=== PATIENT | female | born 1955 | race Caucasian/White ===

== ENCOUNTER → 2019-12-17 08:59 | Outpatient (BNVA) | payer MEDICARE, MEDICAID, SELFPAY | PROVIDERS: Family Provider Registered Nurse; PCP Registered Nurse; Visit Provider Registered Nurse | DX: N30.00 Acute cystitis without hematuria (principal); R39.9 Unspecified symptoms and signs involving the genitourinary system; N39.0 Urinary tract infection, site not specified | CPT/HCPCS: 81003; 87077; 87086; 87186 ==

== ENCOUNTER → 2019-12-24 08:58 | Outpatient (BNVA) | payer MEDICARE, MEDICAID, SELFPAY | PROVIDERS: Family Provider Registered Nurse; PCP Registered Nurse; Referring Provider Registered Nurse; Visit Provider Specialist | DX: G47.10 Hypersomnia, unspecified (principal); R41.89 Other symptoms and signs involving cognitive functions and awareness; Z76.89 Persons encountering health services in other specified circumstances; R44.1 Visual hallucinations; R68.89 Other general symptoms and signs; F17.210 Nicotine dependence, cigarettes, uncomplicated | CPT/HCPCS: 96116; 99204 ==

== ENCOUNTER → 2019-12-30 13:18 | Outpatient (BNVA) | payer MEDICARE, MEDICAID, SELFPAY | PROVIDERS: Family Provider Registered Nurse; PCP Registered Nurse; Referring Provider Specialist; Visit Provider Otolaryngology | DX: M95.0 Acquired deformity of nose (principal); J34.2 Deviated nasal septum; J34.3 Hypertrophy of nasal turbinates; G47.33 Obstructive sleep apnea (adult) (pediatric); F17.210 Nicotine dependence, cigarettes, uncomplicated | CPT/HCPCS: 99203; 99214 ==

== ENCOUNTER 2020-01-01 15:29 | Outpatient (CLI) | payer MEDICARE, MEDICAID, SELFPAY ==
--- NOTE | 2020-01-01 15:30 | CT_ITS ---
WS: [id number] CT SINUSES TECHNIQUE: Noncontrast CT of the paranasal sinuses with coronal and sagittal reformatted images. CLINICAL INFORMATION: DEFORMITY OF NOSE COMPARISON: CT facial bones May 13, 2018 DLP: 514.[address] scans at [facility] use at least one of these dose optimization techniques: automat ed exposure control; mA and/or kV adjustment per patient size (includes targeted exams where dose is matched to clinical indication); or iterative reconstruction. FINDINGS: Comparison made to prior CT facial bones May 13, 2018. Previously demonstrated anterior nasal bone f racture. No significant nasal bone depression or angulation. Right anterior nasal bone fracture line is less apparent today. Maxilla is normal in appearance. Minimal left to right nasal septal deviation measuring 1 to 2 mm. Suspected prior septoplasty with turbinate reductions. Hypoplastic frontal sinuses which are well aerated. Trace mucosal thickening in the ethmoid air cells . Sphenoid sinuses are well aerated. Mild mucosal thickening along the sphenoid sinus ostia. Mastoid air cells are well aerated. Retention cyst right inferior maxillary sinus measuring 10 mm is unchange d. Maxillary sinuses are well aerated. Ostiomeatal units are patent.Normal lamina papyracea. Normal parapharyngeal fat. Posterior nasopharyn x is normal. Normal pterygoid plates. Partially visualized intracranial contents unremarkable. Intrac ranial vascular calcification. CT/CT sinus wo con* [id number] IMPRESSION: 1. Evidence of prior suspected septoplasty with turbinate reductions. 2. Ostiomeatal units are patent bilaterally. 10 mm retention cyst right inferi or maxillary sinus is unchanged. Maxillary sinuses are otherwise well aerated. 3. Hypoplastic frontal sinuses which are well aerated. Trace mucosal thickenin g in the ethmoid air cells. Sphenoid sinuses are well aerated. 4. Normal mastoid air cells. 5. Previously described anterior nasal bone fracture with a right nasal bone f racture line less visible today. No significant nasal bone depression.
== END 2020-01-01 15:30 | disposition home or self-care (01) ==
LOC: CT 15:32
PROVIDERS: Family Provider Registered Nurse; PCP Registered Nurse; Visit Provider Otolaryngology
DX: M95.0 Acquired deformity of nose (principal)
CPT/HCPCS: 70486

== ENCOUNTER 2020-01-13 20:00 | Outpatient (CLI) | payer MEDICARE, MEDICAID, SELFPAY | END 2020-01-13 20:01 | disposition home or self-care (01) | LOC: SLEEP 01-14 09:12 | PROVIDERS: Family Provider Registered Nurse; PCP Registered Nurse; Visit Provider Specialist | DX: G47.33 Obstructive sleep apnea (adult) (pediatric) (principal) | CPT/HCPCS: 95810 ==

== ENCOUNTER → 2020-01-16 13:19 | Outpatient (BNVA) | payer MEDICARE, MEDICAID, SELFPAY | PROVIDERS: Family Provider Registered Nurse; PCP Registered Nurse; Visit Provider Otolaryngology | DX: M95.0 Acquired deformity of nose (principal); J34.2 Deviated nasal septum; J34.3 Hypertrophy of nasal turbinates; G47.33 Obstructive sleep apnea (adult) (pediatric); F17.210 Nicotine dependence, cigarettes, uncomplicated | CPT/HCPCS: 99214 ==

== ENCOUNTER → 2020-01-30 12:27 | Outpatient (BNVA) | payer MEDICARE, MEDICAID, SELFPAY | PROVIDERS: Family Provider Registered Nurse; PCP Registered Nurse; Visit Provider Nurse Practitioner Psychiatric/Mental Health | DX: F43.12 Post-traumatic stress disorder, chronic (principal); F33.41 Major depressive disorder, recurrent, in partial remission; F17.210 Nicotine dependence, cigarettes, uncomplicated; F33.1 Major depressive disorder, recurrent, moderate | CPT/HCPCS: 99214 ==

== ENCOUNTER → 2020-03-12 08:14 | Outpatient (BNVA) | payer MEDICARE, MEDICAID, SELFPAY | PROVIDERS: Family Provider Registered Nurse; PCP Registered Nurse; Visit Provider Nurse Practitioner Psychiatric/Mental Health | DX: F43.12 Post-traumatic stress disorder, chronic (principal); F33.41 Major depressive disorder, recurrent, in partial remission; F17.210 Nicotine dependence, cigarettes, uncomplicated | CPT/HCPCS: 99213 ==

== ENCOUNTER → 2020-03-16 10:38 | Outpatient (BNVA) | payer MEDICARE, MEDICAID, SELFPAY | PROVIDERS: Family Provider Registered Nurse; PCP Registered Nurse; Visit Provider Registered Nurse | DX: I10 Essential (primary) hypertension (principal); E11.65 Type 2 diabetes mellitus with hyperglycemia; E78.5 Hyperlipidemia, unspecified; N39.0 Urinary tract infection, site not specified; J34.3 Hypertrophy of nasal turbinates | CPT/HCPCS: 80053; 80061; 81000; 83036; 85025; 87077; 87086; 87186 ==

== ENCOUNTER → 2020-03-31 14:24 | Outpatient (BNVA) | payer MEDICARE, MEDICAID, SELFPAY | PROVIDERS: Family Provider Registered Nurse; PCP Registered Nurse; Visit Provider Specialist | DX: G47.33 Obstructive sleep apnea (adult) (pediatric) (principal); F17.210 Nicotine dependence, cigarettes, uncomplicated | CPT/HCPCS: 99214 ==

== ENCOUNTER → 2020-06-04 08:20 | Outpatient (BNVA) | payer MEDICARE, MEDICAID, SELFPAY | PROVIDERS: Family Provider Registered Nurse; PCP Registered Nurse; Visit Provider Nurse Practitioner Psychiatric/Mental Health | DX: F43.12 Post-traumatic stress disorder, chronic (principal); F33.41 Major depressive disorder, recurrent, in partial remission; F17.210 Nicotine dependence, cigarettes, uncomplicated | CPT/HCPCS: 99213 ==

== ENCOUNTER → 2020-07-07 15:45 | Outpatient (BNVA) | payer MEDICARE, MEDICAID, SELFPAY | PROVIDERS: Family Provider Registered Nurse; PCP Registered Nurse; Visit Provider Registered Nurse | DX: S50.819A Abrasion of unspecified forearm, initial encounter (principal); E11.9 Type 2 diabetes mellitus without complications; Z79.4 Long term (current) use of insulin; X58.XXXA Exposure to other specified factors, initial encounter | CPT/HCPCS: 83036; 85025 ==

== ENCOUNTER → 2020-07-30 09:35 | Outpatient (BNVA) | payer MEDICARE, MEDICAID, SELFPAY | PROVIDERS: Family Provider Registered Nurse; PCP Registered Nurse; Visit Provider Registered Nurse | DX: R53.83 Other fatigue (principal) | CPT/HCPCS: 85025 ==

== ENCOUNTER → 2020-08-27 08:26 | Outpatient (BNVA) | payer MEDICARE, MEDICAID, SELFPAY | PROVIDERS: Family Provider Registered Nurse; PCP Registered Nurse; Visit Provider Nurse Practitioner Psychiatric/Mental Health | DX: F43.12 Post-traumatic stress disorder, chronic (principal); F33.41 Major depressive disorder, recurrent, in partial remission; F17.210 Nicotine dependence, cigarettes, uncomplicated | CPT/HCPCS: 99214 ==

== ENCOUNTER 2020-09-17 19:26 | Emergency (ER) | payer MEDICARE, MEDICAID, SELFPAY ==
[2020-09-17 19:27] VITALS: BP 126/68; PULSE 78; RESP 16; TEMP 36.7; O2SAT 92; BMI 27.6
--- NOTE | 2020-09-17 19:32 | ED_ITS ---
HPI - Abdominal Pain General: Chief Complaint: General Medical Stated Complaint: GEN PAIN Time Seen by Provider: 09/17/20 19:27 Source: patient and EMS Mode of arrival: EMS Limitations: no limitations History of Present Illness: HPI narrative: 64-year-old female who is a history of chronic pain and has been trying to wean off her pain meds. She states that since doing that she has had pain all over along with some nausea and vomiting and feels like she is dehydrated. Patient states she feels like she may be withdrawing. Patient's vital signs here are all normal. She denies any worsening or improving factors. Denies any fevers. Associated Symptoms: Reports nausea and vomiting; Denies chills, dysuria and fever(s) Review of Systems Const: Denies: fever(s), chills, body aches or change in appetite Eyes: Denies: blurry vision or eye discomfort ENMT: Denies: throat pain or dental pain Card: Denies: chest pain Resp: Denies: dyspnea GI: Reports: nausea and vomiting : Denies: dysuria Musc: Reports: back pain and joint pain Skin/Breast: Denies: rash Neuro: Denies: headache(s) Psych: Denies: depression Oleg/Lymph: Denies: easy bruising All/Imm: Denies: urticaria PFSH ED PFSH: Medical History Chronic GERD Chronic post-traumatic stress disorder Deviated septum Major depressive disorder, recurrent, in partial remission Nasal turbinate hypertrophy Obstructive sleep apnea Type 2 diabetes mellitus Surgical History History of nasal surgery Family History Other CAD (coronary artery disease) Cancer Depression Diabetes Hypertension Stroke Social History Smoking and tobacco status: current every day smoker cigarettes Packs smoked per day: 2 Quit status (tobacco): considering quitting Second hand smoke exposure: No Smoking risk assessment/counseling performed?: No Alcohol intake: never Desire information about alcohol rehabilitation?: No Counseling given: No Desire information about substance/drug rehabilitation?: No Counseling given: No Lives independently: Yes Household members: none Marital status: / Current occupational status: retired History of recent travel: No Current gender identity: Female Physical Exam Const: COMMON NORMALS: no acute distress, patient oriented x3 and healthy alysha earing HENMT: COMMON NORMALS: normocephalic and atraumatic HEAD & SCALP: normocephalic and atraumatic Eye: COMMON NORMALS: Equal, round and reactive pupils present and EOMs intact bilaterally PUPIL: Yes Equal, round and reactive pupils present Neck/C-Spine: COMMON NORMALS: full ROM and supple Chest: COMMONS NORMALS: normal inspection of the chest and normal palpation of entire chest wall Resp: COMMON NORMALS: normal respiratory effort, No retractions, No use of accessory muscles and clear to auscultation bilaterally AUSCULTATION: clear to auscultation bilaterally Cardio: COMMON NORMALS: regular rate, regular rhythm and No murmurs present (Cardio) RATE: regular rate RHYTHM: regular rhythm GI: COMMON NORMALS: Normal to inspection, nondistended, normoactive bowel sounds present, Soft to palpation, non-tender and no masses PALPATION: Yes Soft to palpation Extremity: COMMON NORMALS: normal to inspection and full ROM Neuro: COMMON NORMALS: patient oriented x3, moves all extremities and no focal motor deficits Psych: COMMON NORMALS: mental status grossly normal, Normal thought process present and cooperative THOUGHT PROCESS: Normal thought process present Skin: COMMON NORMALS: no rashes or lesions noted and no wounds GENERAL SKIN EXAM: no rashes or lesions noted Course Vital Signs: Vital signs: Vital Signs Temperature 98.0 F 09/17/20 19:27 Pulse Rate 78 09/17/20 19:27 Respiratory Rate 16 09/17/20 19:27 Blood Pressure 126/68 09/17/20 19:27 Pulse Oximetry 92 09/17/20 19:27 MDM - Abdominal Pain MDM Narrative: Medical decision making narrative: 64-year-old female presents here with chronic pain. She is well-appearing here has no signs of any withdrawal. Patient's blood work and vitals here been normal. She is stable for discharge. Lab Data: Labs: Lab Results 09/17/20 09/17/20 Range/Units 20:39 20:39 WBC 10.1 H (4.0-10.0) 10^3/ uL RBC 4.01 L (4.1-5.3) 10^6/u L Hgb 12.3 (11.5-15.3) g/dL Hct 37.8 (37.0-47.0) % MCV 94.3 (81-99) fL MCH 30.7 (28.0-34.0) pg MCHC 32.5 (30.0-36.0) g/dL RDW 12.1 (12.1-15.1) % Plt Count 200 (130-400) 10^3/c mm MPV 10.3 (7.4-10.4) fL Neut % (Auto) 58.6 % Lymph % (Auto) 27.4 % [place] % (Auto) 8.6 % Eos % (Auto) 4.2 % Baso % (Auto) 0.8 % Neut # (Auto) 5.92 (1.8-7.7) 10^3/u L Lymph # (Auto) 2.8 (0.8-4.8) 10^3/u L [place] # (Auto) 0.9 (0.2-0.9) 10^3/u L Eos # (Auto) 0.4 (0.0-0.8) 10^3/u L Baso # (Auto) 0.1 (0.0-0.1) 10^3/u L Nucleated RBC % (a uto) 0 % Nucleated RBCs # 0.0 /100WBC Sodium 143 (136-145) mmol/L Potassium 3.8 (3.5-5.1) mmol/L Chloride 106 (98-107) mmol/L Carbon Dioxide 29 (22-29) mmol/L Anion Gap 11.8 (5-19) BUN 15 (8-23) mg/dL Creatinine 0.9 (0.5-0.9) mg/dL GFR Calculation 62.6 L (90-130) mL/min Glucose 97 (65-115) mg/dL Calculated Osmolal ity 297 H (285-295) mOsm/k g Calcium 8.9 (8.5-10.5) mg/dL Total Bilirubin 0.2 (0.15-1.2) mg/dL AST 14 (0-32) U/L ALT 14 (0-33) U/L Alkaline Phosphata se 82 (35-105) IU/L Total Protein 6.1 L (6.6-8.7) g/dL Albumin 3.9 (3.5-5.2) g/dL Globulin 2.2 (1.3-4.6) g/dL Lipase 23 (13-60) U/L Discharge Plan Discharge Patient Disposition: Home Clinical Impression: Chronic pain Qualifiers: Chronic pain type: other chronic pain Qualified Code(s): G89.29 - Other chronic pain Condition: Stable Prescriptions: No Action baclofen 10 mg tablet 10 mg PO DAILY RF: 0 polyethylene glycol 3350 [Miralax] 17 gram/dose powder 17 gm PO DAILY RF: 0 lorazepam [Ativan] 0.5 mg tablet 0.25 mg PO DAILY PRN (Reason: anxiety) Qty: 15 RF: 0 duloxetine 60 mg capsule,delayed release(DR/EC) 60 mg PO .morning Qty: 90 RF: 2 duloxetine [Cymbalta] 30 mg capsule,delayed release(DR/EC) 30 mg PO .morning Qty: 90 RF: 2 (DME) oxygen-air delivery systems Device See Rx Instructions .ROUTE .MEDSUPPLY Qty: 1 RF: 0 valsartan 40 mg tablet See Rx Instructions .ROUTE BID Qty: 180 RF: 0 Januvia 100 mg tablet See Rx Instructions .ROUTE .COMPLEX Qty: 90 RF: 0 metoprolol tartrate 100 mg tablet See Rx Instructions .ROUTE .COMPLEX Qty: 180 RF: 0 amlodipine 10 mg tablet See Rx Instructions .ROUTE .COMPLEX Qty: 90 RF: 0 atorvastatin 20 mg tablet See Rx Instructions .ROUTE .COMPLEX Qty: 90 RF: 0 famotidine 40 mg tablet See Rx Instructions .ROUTE .COMPLEX Qty: 90 RF: 0 blood sugar diagnostic [OneTouch Ultra Blue Test Strip] Strip See Rx Instructions .ROUTE .COMPLEX Qty: 100 RF: 0 dulaglutide [Trulicity] 0.75 mg/0.5 mL pen injector See Rx Instructions .ROUTE .COMPLEX Qty: 2 RF: 0 [place] 7.5-325 mg Tablet 1 tab PO Q6H PRN (Reason: Pain) RF: 0 Discharge Orders: Discharge Order (Routine); Ordered 09/17/20 Ordered By: Dev Dunne Referrals: Francois Pizarro, CLAIMS REPRESENTATIVE [Primary Care Provider] - 1-3 days Discharge Diet: Advance as tolerated Discharge Activity: Resume usual activity Patient Instructions: Chronic Pain (ED) Coding Level of Care Code ED [employer] Recapping 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
[2020-09-17 20:55] LABS: Basophils # 0.1 10^3/uL (0.0-0.1); Basophils % 0.8 %; Eosinophils # 0.4 10^3/uL (0.0-0.8); Eosinophils % 4.2 %; Hematocrit 37.8 % (37.0-47.0); Hemoglobin 12.3 g/dL (11.5-15.3); Lymphocytes # 2.8 10^3/uL (0.8-4.8); Lymphocytes % 27.4 %; Mean Corpuscular HGB Conc 32.5 g/dL (30.0-36.0); Mean Corpuscular Hemoglobin 30.7 pg (28.0-34.0); Mean Corpuscular Volume 94.3 fL (81-99); Mean Platelet Volume 10.3 fL (7.4-10.4); Monocytes # 0.9 10^3/uL (0.2-0.9); Monocytes % 8.6 %; Neutrophils # 5.92 10^3/uL (1.8-7.7); Neutrophils % 58.6 %; Nucleated Red Blood Cells % 0 %; Platelet Count 200 10^3/cmm (130-400); Red Blood Count 4.01 10^6/uL (4.1-5.3); Red Cell Distribution Width 12.1 % (12.1-15.1); White Blood Count 10.1 10^3/uL (4.0-10.0)
[2020-09-17 21:15] LABS: Alanine Aminotransferase 14 U/L (0-33); Albumin Level 3.9 g/dL (3.5-5.2); Alkaline Phosphatase 82 IU/L (35-105); Anion Gap 11.8 (5-19); Aspartate Amino Transferase 14 U/L (0-32); Blood Urea Nitrogen 15 mg/dL (8-23); Calcium 8.9 mg/dL (8.5-10.5); Carbon Dioxide 29 mmol/L (22-29); Chloride 106 mmol/L (98-107); Globulin 2.2 g/dL (1.3-4.6); Glomerular Filtration Rate 62.6 mL/min (90-130); Glucose 97 mg/dL (65-115); Lipase 23 U/L (13-60); Osmolality Calculated 297 mOsm/kg (285-295); Potassium 3.8 mmol/L (3.5-5.1); Sodium 143 mmol/L (136-145); Total Bilirubin 0.2 mg/dL (0.15-1.2); Total Protein 6.1 g/dL (6.6-8.7)
[2020-09-17] MEDS: sodium chloride 0.9% 1,000 ML 999 ML IV (22:37)
[2020-09-17] MEDS: LORazepam 2 mg/mL INJ 1 mL 0.5 MG IVP ×2 (22:43→22:44)
[2020-09-17] MEDS: ondansetron 2 mg/ML SDV 2 mL 4 MG IVP ×2 (22:43)
[2020-09-18 00:11] VITALS: BP 128/74; PULSE 82; RESP 18; O2SAT 96
== END 2020-09-17 23:53 | disposition home or self-care (01) ==
PROVIDERS: Emergency Provider Emergency Medicine; PCP Registered Nurse
DX: G89.29 Other chronic pain (principal); E11.9 Type 2 diabetes mellitus without complications; F17.210 Nicotine dependence, cigarettes, uncomplicated
CPT/HCPCS: 12345; 80053; 83690; 85025; 96361; 96374; 96375; 99283; J2060; J2405; J7030

== ENCOUNTER → 2020-09-24 08:20 | Outpatient (BNVA) | payer MEDICARE, MEDICAID, SELFPAY | PROVIDERS: PCP Registered Nurse; Visit Provider Nurse Practitioner Psychiatric/Mental Health | DX: F43.12 Post-traumatic stress disorder, chronic (principal); F33.41 Major depressive disorder, recurrent, in partial remission; F17.210 Nicotine dependence, cigarettes, uncomplicated | CPT/HCPCS: 99214 ==

== ENCOUNTER → 2020-10-22 08:12 | Outpatient (BNVA) | payer MEDICARE, MEDICAID, SELFPAY | PROVIDERS: PCP Registered Nurse; Visit Provider Nurse Practitioner Psychiatric/Mental Health | DX: F33.41 Major depressive disorder, recurrent, in partial remission (principal); F43.12 Post-traumatic stress disorder, chronic; F17.210 Nicotine dependence, cigarettes, uncomplicated | CPT/HCPCS: 99214 ==

== ENCOUNTER → 2020-11-24 07:42 | Outpatient (BNVA) | payer MEDICARE, MEDICAID, SELFPAY | PROVIDERS: PCP Registered Nurse; Visit Provider Nurse Practitioner Psychiatric/Mental Health | DX: F33.41 Major depressive disorder, recurrent, in partial remission (principal); F43.12 Post-traumatic stress disorder, chronic; F17.210 Nicotine dependence, cigarettes, uncomplicated | CPT/HCPCS: 99213 ==

== ENCOUNTER → 2021-02-16 08:18 | Outpatient (BNVA) | payer MEDICARE, MEDICAID, SELFPAY | PROVIDERS: PCP Registered Nurse; Visit Provider Nurse Practitioner Psychiatric/Mental Health | DX: F33.41 Major depressive disorder, recurrent, in partial remission (principal); F43.12 Post-traumatic stress disorder, chronic; F17.210 Nicotine dependence, cigarettes, uncomplicated | CPT/HCPCS: 99214 ==

== ENCOUNTER → 2021-02-18 13:26 | Outpatient (BNVA) | payer MEDICARE, MEDICAID, SELFPAY | PROVIDERS: PCP Registered Nurse; Visit Provider Registered Nurse | DX: E11.9 Type 2 diabetes mellitus without complications (principal); G47.10 Hypersomnia, unspecified; I10 Essential (primary) hypertension; I73.9 Peripheral vascular disease, unspecified; A49.9 Bacterial infection, unspecified; N39.0 Urinary tract infection, site not specified; Z79.4 Long term (current) use of insulin | CPT/HCPCS: 80053; 80061; 81000; 83036; 85025; 87077; 87086; 87184 ==

== ENCOUNTER → 2021-03-01 11:23 | Outpatient (BNVA) | payer MEDICARE, MEDICAID, SELFPAY | PROVIDERS: PCP Registered Nurse; Visit Provider Registered Nurse | DX: N39.0 Urinary tract infection, site not specified (principal); A49.9 Bacterial infection, unspecified | CPT/HCPCS: 81000; 87077; 87086; 87184 ==

== ENCOUNTER → 2021-03-11 14:35 | Outpatient (BNVA) | payer MEDICARE, MEDICAID, SELFPAY | PROVIDERS: PCP Registered Nurse; Visit Provider Registered Nurse | DX: A49.9 Bacterial infection, unspecified (principal); N39.0 Urinary tract infection, site not specified | CPT/HCPCS: 81000 ==

== ENCOUNTER → 2021-03-26 09:28 | Outpatient (BNVA) | payer MEDICARE, MEDICAID, SELFPAY | PROVIDERS: PCP Registered Nurse; Visit Provider Nurse Practitioner Psychiatric/Mental Health | DX: F33.41 Major depressive disorder, recurrent, in partial remission (principal); F43.12 Post-traumatic stress disorder, chronic; F17.210 Nicotine dependence, cigarettes, uncomplicated | CPT/HCPCS: 99214 ==

== ENCOUNTER → 2021-05-07 07:38 | Outpatient (BNVA) | payer MEDICARE, MEDICAID, SELFPAY | PROVIDERS: PCP Registered Nurse; Visit Provider Nurse Practitioner Psychiatric/Mental Health | DX: F33.41 Major depressive disorder, recurrent, in partial remission (principal); F43.12 Post-traumatic stress disorder, chronic; F17.210 Nicotine dependence, cigarettes, uncomplicated | CPT/HCPCS: 99214 ==

== ENCOUNTER → 2021-06-14 07:11 | Outpatient (BNVA) | payer MEDICARE, MEDICAID, SELFPAY | PROVIDERS: PCP Registered Nurse; Visit Provider Nurse Practitioner Psychiatric/Mental Health | DX: F33.41 Major depressive disorder, recurrent, in partial remission (principal); F43.12 Post-traumatic stress disorder, chronic; F17.210 Nicotine dependence, cigarettes, uncomplicated | CPT/HCPCS: 99214 ==

== ENCOUNTER → 2021-08-09 07:27 | Outpatient (BNVA) | payer MEDICARE, MEDICAID, SELFPAY | PROVIDERS: PCP Registered Nurse; Visit Provider Nurse Practitioner Psychiatric/Mental Health | DX: F33.41 Major depressive disorder, recurrent, in partial remission (principal); F43.12 Post-traumatic stress disorder, chronic; F17.210 Nicotine dependence, cigarettes, uncomplicated | CPT/HCPCS: 99214 ==

== ENCOUNTER → 2021-09-07 11:29 | Outpatient (BNVA) | payer MEDICARE, MEDICAID, SELFPAY | PROVIDERS: PCP Registered Nurse; Visit Provider Registered Nurse | DX: J44.9 Chronic obstructive pulmonary disease, unspecified (principal); Z23 Encounter for immunization; E11.9 Type 2 diabetes mellitus without complications; Z79.4 Long term (current) use of insulin; I10 Essential (primary) hypertension; E55.9 Vitamin D deficiency, unspecified | CPT/HCPCS: 80053; 81000; 82306; 83036; 85025 ==

== ENCOUNTER → 2021-11-01 07:55 | Outpatient (BNVA) | payer MEDICARE, MEDICAID, SELFPAY | PROVIDERS: PCP Registered Nurse; Visit Provider Nurse Practitioner Psychiatric/Mental Health | DX: F33.41 Major depressive disorder, recurrent, in partial remission (principal); F43.12 Post-traumatic stress disorder, chronic; F17.210 Nicotine dependence, cigarettes, uncomplicated; M62.830 Muscle spasm of back | CPT/HCPCS: 99214 ==

== ENCOUNTER 2021-12-06 14:06 | Outpatient (CLI) | payer MEDICARE, MEDICAID, SELFPAY ==
--- NOTE | 2021-12-06 14:15 | USCV_ITS ---
Samanta Null Age: 66 Gender: F : 1955 Exam Date: 12/06/2021 14:53 Ordering Phys: Francois PizarroP LIQUID SUGAR MELTER Technologist: GUIDO Exam Location: [facility] [place] Indication: PVD Risk Factors: Previous Vascular Surgery: RIGHT LEFT BP: 140.0 / 82.00 BP: 172.0/ 79.00 0 0 Waveform Velocity (cm/s) Velocity (cm/s) Waveform Monophasic 152.7 Iliac Prox 123.6 Biphasic Monophasic 323.4 Iliac Mid 140.7 Triphasic Monophasic 140.7 Iliac Distal 132.8 Triphasic Monophasic 206.4 ENDBANDER 160.4 Biphasic Monophasic 159.8 SFA Prox 47.5 Monophasic Monophasic 42.1 SFA Mid 37.4 Monophasic Monophasic SFA Dist Monophasic 64.4 57.7 Monophasic 28.3 POP 29.4 Monophasic Monophasic 39.5 [employer] 29.4 Monophasic Monophasic 24.3 DPA 18.6 Monophasic FINDINGS NONCOMPRESSIBLE UNABLE TO OBTAIN ABIS Heavy heterogeneous plaques at the right mid iliac artery with elevated Doppler velocity and color flow turbulence. Moderate to heavy diffuse plaques in the common femoral and femoral artery on the right side Moderate heterogeneous diffuse plaques in the iliac, femoral and popliteal arteries on the left side Patent infrapopliteal vessels bilaterally CONCLUSIONS Heavy heterogeneous plaques at the right mid iliac artery with Doppler characteristics suggesting greater than 60% stenosis. Moderate to heavy diffuse plaques in the common femoral and femoral artery on the right side. Moderate heterogeneous diffuse plaques in the iliac, femoral and popliteal artery on the left side. ABIs could not be obtained due to noncompressibility Dr Karena Dupree MD [facility] (Electronically Signed) Final Date: 10 December 2021 09:03 S
--- NOTE | 2021-12-06 15:00 | USCV_ITS ---
Samanta Null Age: 66 Gender: F : 1955 Exam Date: 12/06/2021 14:25 Ordering Phys: Francois Pizarro CENTER DIRECTOR Technologist: GUIDO [place] [facility] [place]: SYNCOPE AND COLLAPSE Risk Factors: Previous Vascular Surgery: Right Brachial BP: / Left Brachial BP: / Right Left Velocity (cm/s) Spectral Plaque Velocity (cm/s) Spectral Plaque Syst/Diast Broadening Syst/Diast Broadening 69.00/ 8.90 Prox CCA 103.80/ 23.10 55.20/ 8.50 Mid CCA 91.30 / 23.10 85.20/ 15.60 Distal CCA 71.30 / 23.40 109.55/39.40 Prox ICA 54.40 / 23.30 120.25/35.20 Mid ICA 86.70 / 26.00 89.40/ 19.00 Distal ICA 71.70 / 20.80 112.50 ECA 118.10 2.19 ICA/CCA 0.95 Antegrade Vertebral Antegrade 64.70/ 12.40 cm/s 68.10/ 18.80 cm/s Bi Subclavian Bi 127.8 140.1 0 0 FINDINGS Moderate heterogeneous plaques of the right bifurcation and proximal no carotid artery. Mild to moderate plaques of the left bifurcation and internal carotid artery. Anterior flow in the vertebral arteries bilaterally. Normal Doppler flow velocities in the external carotid and subclavian arteries CONCLUSIONS Moderate heterogeneous plaques of the right bifurcation and proximal no carotid artery, suggesting less than 50% gnosis. Mild to moderate plaques of the left bifurcation and internal carotid artery, suggesting less than 50% stenosis. Compared to the study from 04/17/2018, there may not be a significant change Dr Karena Dupree MD [facility] (Electronically Signed) Final Date: 10 December 2021 08:56 S
== END 2021-12-06 14:07 | disposition home or self-care (01) ==
LOC: RAD 14:12
PROVIDERS: PCP Registered Nurse; Visit Provider Registered Nurse
DX: R55 Syncope and collapse (principal); I65.23 Occlusion and stenosis of bilateral carotid arteries; I73.9 Peripheral vascular disease, unspecified; I70.8 Atherosclerosis of other arteries
CPT/HCPCS: 93880; 93925

== ENCOUNTER 2022-01-24 12:07 | Outpatient (CLI) | payer MEDICARE, MEDICAID, SELFPAY ==
--- NOTE | 2022-01-24 12:30 | CT_ITS ---
WS: [id number] CT angio abd aorta runoff [id number] REASON FOR EXAM: I77.1 - Stricture of artery TECHNIQUE: Coronal and sagittal 2-D and MIP reformations. IV CONTRAST ADMINISTERED: 95 mL of Omnipaque 350 TOTAL EXAM DLP: 936.[address] scans at [facility] use at least one of these dose optimization techniques: automat ed exposure control; mA and/or kV adjustment per patient size (includes targeted exams where dose is matched to clinical indication); or iterative reconstruction. FINDINGS: ABDOMEN: Diffuse severe calcified atheromatous change in the abdominal aorta without aneurysmal dilatation. Mo derate stenoses by calcified plaque in the celiac, superior mesenteric, and major and minor renal art eries. Stenoses are less than 50%. PELVIS: Severe diffuse calcified plaque involves the common iliac arteries with mild stenosis. Occlus ion of the left internal iliac artery at its origin. Calcified plaque produces moderate stenosis, approximately 50%, in the common femoral arteries. EXTREMITIES: Severe extensive calcified plaque producing multiple tandem stenoses and occlusion of the superficial femoral arteries and the proximal third of the thigh bilaterally. There is reconstitution of the left superficial femoral artery at the level of the adductor canal wit h patent popliteal artery without significant stenosis. The right superficial femoral artery is reconstituted below the level of the adductor canal with brambila nt popliteal artery without significant stenosis. There are 3 patent runoff vessels bilaterally to the level of the ankle were the peroneal and anterio r tibials become diminutive and the main flow to the foot is from the posterior tibial artery bilater ally. CT/CT angio abd aorta runof [id number] IMPRESSION: Severe diffuse calcified atheromatous disease involving the abdominal aorta and the arterial circulation of the lower extremities. Stenoses and occlusions as above.
[2022-01-24 12:41] LABS: Blood Urea Nitrogen 12 mg/dL (8-23)
[2022-01-24 12:41] LABS: Glomerular Filtration Rate 55.1 mL/min (90-130)
[2022-01-24] MEDS: iohexol 350 mg/mL 100 mL Btl IV (12:52)
== END 2022-01-24 12:08 | disposition home or self-care (01) ==
LOC: RAD 12:09
PROVIDERS: PCP Registered Nurse; Visit Provider Internal Medicine
DX: I77.1 Stricture of artery (principal); I70.203 Unspecified atherosclerosis of native arteries of extremities, bilateral legs; I10 Essential (primary) hypertension; I70.0 Atherosclerosis of aorta
CPT/HCPCS: 75635; 82565; 84520

== ENCOUNTER → 2022-02-03 07:40 | Outpatient (BNVA) | payer MEDICARE, MEDICAID, SELFPAY | PROVIDERS: PCP Registered Nurse; Visit Provider Nurse Practitioner Psychiatric/Mental Health | DX: F33.41 Major depressive disorder, recurrent, in partial remission (principal); F43.12 Post-traumatic stress disorder, chronic; F17.210 Nicotine dependence, cigarettes, uncomplicated; M62.830 Muscle spasm of back | CPT/HCPCS: 99214 ==

== ENCOUNTER → 2022-02-11 09:08 | Outpatient (BNVA) | payer MEDICARE, MEDICAID, SELFPAY | PROVIDERS: PCP Registered Nurse; Visit Provider Internal Medicine | DX: I73.9 Peripheral vascular disease, unspecified (principal); E11.9 Type 2 diabetes mellitus without complications; I10 Essential (primary) hypertension; Z01.812 Encounter for preprocedural laboratory examination; Z79.4 Long term (current) use of insulin | CPT/HCPCS: 80048; 85025; 85610; 87635 ==

== ENCOUNTER 2022-02-17 08:53 | Observation (INO) | payer MEDICARE, MEDICAID, SELFPAY ==
[2022-02-16 13:22] VITALS: BMI 31.6
[2022-02-17] VITALS (44 sets, daily range): BP systolic 107–162; BP diastolic 47–87; PULSE 54–88; RESP 13–25; TEMP 36.3–37; O2SAT 89–98; BMI 31.6
[2022-02-17] MEDS: diphenhydrAMINE 50 mg Capsule PO (06:30)
--- NOTE | 2022-02-17 07:00 | XACV_ITS ---
Ht: 163 cm Wt: 83 kg BSA: 1.97 m2 Any Known Allergies: Other Gender: Female : 1955 Exam Type: Invasive Peripheral Vascular Procedure(s): Procedure Description: Peripheral Cath Diagnostic Procedure Procedure Description: Abdominal aortic angiography Procedure Description: Lower extremities' angiography Procedure Description: Peripheral vascular Intervention Procedure Description: PV Balloon Procedure Description: PV Atherectomy Exam Priority: Routine Lower Extremity Diagnostic Findings Indication: 66-year-old female with past medical history of hypertension, diabetes, tobacco abuse, COPD, sleep apnea who has been having severe lifestyle limiting claudication. Right leg is worse. She underwent ultrasound that showed a significant right mid external iliac artery stenosis. CTA was performed that shows multiple level disease bilaterally including right iliac artery and bilateral SFAs. Patient is here for peripheral angiogram with possible intervention. Right lower extremity: Right common iliac artery: Patent. Right external iliac artery: Patent. Right common femoral artery: Has 60% stenosis. Right SFA: Critical ostial 99% stenosis. In the mid segment, the SFA is occluded. Distal SFA reconstitutes via collaterals. Right profunda: Patent. Right Popliteal artery: Patent. Right TP segment: Patent. Right AT: Patent. Right PT : Patent. Right peroneal artery: Patent. Left lower extremity: common iliac artery: Patent. Left external iliac artery: Patent. Left common femoral artery: Patent. Left SFA: Proximally occluded. Distal SFA reconstitutes via collaterals. Left profunda: Patent. Left Popliteal artery: Patent. Left TP segment: Patent. Below the knee arteries are not well visualized but grossly patent. Right Distal Common Femoral Artery: 70% stenosis. Right Proximal Superficial Femoral Artery: 70% stenosis, ostial. Right Mid-longitudinal Superficial Femoral Artery: 70% stenosis. Right Mid-longitudinal Popliteal Artery: 70% stenosis. Right Mid-longitudinal Tibioperoneal Trunk: 70% stenosis. Lower Extremity Interventional Findings PROCEDURE DETAIL: After obtaining abdominal angiogram right lower extremity selective images, we proceeded with intervention. Using Glidewire and seeker support catheter we crossed totally occluded SFA segment and wire was placed in posterior tibial artery. Through the seeker catheter we exchanged glide wire to viper wire. We performed orbital arthrectomy. This was followed by balloon angioplasty using 5.0 x 250mm balloon. We then performed balloon angioplasty with 6.0 x 100 mm balloon. At this time we performed angiogram that showed excellent flow in the SFA. In the TP segment there appeared to be small thrombus accumulation. We performed balloon angioplasty there as well using 4.0 balloon. At this time final angiogram was obtained which showed excellent flow and no significant flow. Ostial peroneal artery had haziness and slow flow but other vessels were noraml. Patient left the Spanner Operator in a stable condition. Right Distal Common Femoral Artery: 70% stenosis treated with AB Bowie 35 ASSISTANT TO THE PRESIDENT Catheter [id number]. Right Proximal Superficial Femoral Artery: 70% stenosis treated with AB ARMADA 35 OTW [id number]. Right Mid-longitudinal Superficial Femoral Artery: 70% stenosis treated with AB Bowie 35 ASSISTANT TO THE PRESIDENT Catheter [id number]. Right Mid-longitudinal Popliteal Artery: 70% stenosis treated with AB Bowie 35 ASSISTANT TO THE PRESIDENT Catheter [id number]. Right Mid-longitudinal Tibioperoneal Trunk: 70% stenosis treated with AB ARMADA 35 OTW [id number]. Conclusions Totally occluded right SFA s/p successful revascularization with orbital arthrectomy and balloon angioplasty. Severe peripheral artery disease of the left lower extremity. Plan for staged revasculuarization. There is severe right lower extremity disease. Right Distal Common Femoral Artery was treated with Balloon. Right Proximal Superficial Femoral Artery was treated with Balloon. Right Mid-longitudinal Superficial Femoral Artery was treated with Balloon. Right Mid-longitudinal Popliteal Artery was treated with Balloon. Right Mid-longitudinal Tibioperoneal Trunk was treated with Balloon. Recommendations Continue aspirin and plavix. Aggressive risk factor control. Patient will need staged revascularization of the left lower extremity. Outpatient follow up in 4 weeks. Hemodynamic Data Phase:Rest AO : 107.0 / 46.0 ( 72.0 ) @ 8:44:00 AM 125.0 / 55.0 ( 81.0 ) @ 9:05:00 AM 151.0 / 62.0 ( 98.0 ) @ 9:20:00 AM 118.0 / 48.0 ( 75.0 ) @ 9:34:00 AM Access Site Site: Left Femoral artery Sheath Size: 6 Fr Hemost... Method: Suture Hemost... Success: Successful Procedure Details Findings Procedure Consent Obtained. Admit Source: Out Patient. Pre-Procedure Time Out. Identified patient by full name and date of as verbalized by the patient/guarantor. Does the consent match the physician's order: Yes. Accurate & Complete Informed Consent: Yes. Inpatient/Outpatient History & Physical on Chart: Yes. If H&P is completed, is and addenduem needed: N/A; If yes, is the addendum complete: N/A. Visualize and Verify Site with Patient/Guarantor: N/A. Relevant Radiology Images available: Yes. Pre-op teaching completed and patient verbalized understanding. The risks, benefits, and alternatives of sedation and/or procedure were discussed by physician. The patient agrees to continue. Procedure started. Correct patient, site and procedure confirmed by cath team. Current diagnosis: PVD. PERRLA. Strong, equal hand material stress tester bilaterally. Lungs clear x 5 lobes. IV Site on Arrival: 20 gauge in the right wrist. IV Fluids: 0.9% NaCl at KVO. 0 mL infused prior to laboratory asst. Pre Procedural Pulses: bilateral dorsalis pedis was Doppled. Pre Procedural Pulses: bilateral posterior tibial was Doppled. Oxygen started at 2liters/min via nasal canula. right groin was prepped with chloroprep then draped in the usual sterile fashion. left groin was prepped with chloroprep then draped in the usual sterile fashion. Physician notified. Baseline sample Acquired. HR: 60 BPM. Physician arrived. Joanna CASE orienting ballistics expert forensic with Zoey Rose RN. Physician scrubbed in. Immediate Pre-Procedure Time Out. Correct Patient: Yes; Correct Procedure: Yes; Correct Site: Yes; Correct Patient Position: Yes; Correct Supplies: Yes; Dried Flammable Prep: Yes; Blood Products Available: N/A;. Lidocaine 1% infiltrated to the left groin. Arterial access obtained with micropuncture set. A 5FrFr UF catheter in over wire. Abdominal aortogram performed in TELLO @ 10 mL/sec for a total of 30 mL. 6Fr short sheath exchanged for 6Fr Flexor sheath 45 cm. Glidewire inserted. Catheter out. Sheath injected in Left common femoral artery and runoff performed of right leg. Seeker catheter inserted over the wire. Glidewire removed. Hand injection performed through the Seeker catheter with digital subtraction. Viperwire inserted and parked in the SFA. Seeker catheter removed. Orbital atherectomy decive inserted to the ostial SFA. Orbital atherectomy performed to ostial SFA. Orbital atherectomy device advanced and performed to mid SFA. Orbital atherectomy device removed. Results checked. Seeker catheter inserted over the Viper wire. Viperwire removed. Glidewire inserted. Balloon inserted over the wire to the common femoral. Inflation number : 1 A AB Bowie 35 ASSISTANT TO THE PRESIDENT Catheter [id number] was prepped and advanced across the Distal Common Femoral, Right , then inflated to 8 SARAHI for 1:30 seconds. Balloon advanced down the SFA. Inflation number: 1 The AB Bowie 35 ASSISTANT TO THE PRESIDENT Catheter [id number] was reinflated across the Mid Superficial Femoral, Right, to 8 SARAHI for 1:30 seconds. Balloon advanced to the popliteal. Inflation number: 1 The AB Bowie 35 ASSISTANT TO THE PRESIDENT Catheter [id number] was reinflated across the Mid Popliteal, Right, to 6 SARAHI for 1:00 seconds. Balloon out. Balloon inserted over the wire to the ostial superficial femoral. Inflation number : 1 A AB ARMADA 35 OTW [id number] was prepped and advanced across the Ostial Superficial Femoral, Right , then inflated to 6 SARAHI for 1:30 seconds. Balloon out over wire. Results checked. Glidewire parked in the posterior tibial. Balloon inserted to the tibial peroneal trunk. Inflation number : 1 A AB ARMADA 35 OTW [id number] was prepped and advanced across the Tibial Peroneal Trunk, Right , then inflated to 2 SARAHI for 1:00 seconds. Balloon out over wire. Right superficial femoral selected and arteriogram with runoff performed @ 10 mL/sec for a total of 20 mL. 6Fr Flexor sheath removed and exchanged for 6 Fr short sheath. Glidewire removed. Left common iliac selected and arteriogram with runoff performed @ 10 mL/sec for a total of 30 mL. A Suture was successful obtaining hemostatsis at the Left Femoral artery insertion site. Post Procedure: Pulses reassessed and unchanged. PERRLA. Strong, equal hand material stress tester bilaterally. No VTE prophylaxis required. Medication's Wasted: Nitro = 49.6 mg. Total IV fluids: 88 mL. Post-op diagnosis: PVD. Complications: none. Estimated blood loss: 5mL-10mL. Responsiveness - Normal response to verbal stimuli; alert and oriented, PERRLA. Airway - Unaffected, no intervention required; spontaneous ventilation. Circulation: W/N/L, pulses unchanged. Nausea/Vomiting: No. Procedure completed. Patient transferred by bed to 1st floor. Vital chart was stopped. Procedure Medications Start: 7:32 AM Stop: 7:32 AM Medication: 0.9% Saline Amount: 75 ml/hr Route: I.V. drip Start: 7:34 AM Stop: 7:34 AM Medication: Versed Amount: 1 mg Route: I.V. Start: 7:34 AM Stop: 7:34 AM Medication: Fentanyl Amount: 50 mcg Route: I.V. Start: 7:39 AM Stop: 7:39 AM Medication: Versed Amount: 1 mg Route: I.V. Start: 7:44 AM Stop: 7:44 AM Medication: Fentanyl Amount: 50 mcg Route: I.V. Start: 7:54 AM Stop: 7:54 AM Medication: Versed Amount: 1 mg Route: I.V. Start: 8:04 AM Stop: 8:04 AM Medication: Fentanyl Amount: 25 mcg Route: I.V. Start: 8:04 AM Stop: 8:04 AM Medication: Versed Amount: 1 mg Route: I.V. Start: 8:10 AM Stop: 8:10 AM Medication: Heparin Amount: 5000 units Route: I.V. Start: 8:13 AM Stop: 8:13 AM Medication: Fentanyl Amount: 50 mcg Route: I.V. Start: 8:24 AM Stop: 8:24 AM Medication: Nitrogylcerin Amount: 400 mcg Route: I.A. Start: 8:38 AM Stop: 8:38 AM Medication: Aggrastat 12.5 mg/250 mL Amount: 42 ml Route: I.V. bolus Start: 8:38 AM Stop: 8:38 AM Medication: Aggrastat 12.5 mg/250 mL Amount: 15.1 ml/hr Route: I.V. drip Start: 8:38 AM Stop: 8:38 AM Medication: Plavix Amount: 300 mg Route: P.O. I, the attending physician, have reviewed and verified all procedure medications. Yes, all medications given per verbal order History/Risk Factors Hypertension: Yes Dyslipidemia: No Peripheral Arterial Disease (PAD): Yes Obesity: Yes Renal Disease: No Tobacco Use: Current/Recent(w/in 1 year) Prior Interventions PCI: No CABG: No Valve Surgery: No Report Signatures Finalized by José Luis Sheridan MD on 02/28/2022 02:11 PM
--- NOTE | 2022-02-17 07:30 | W.PM.OPSFHP ---
Same Day Surgery H&P Indication for Procedure/HPI DATE OF PROCEDURE: February 17, 2022 CHIEF COMPLAINT/INDICATIONFOR SURGICAL PROCEDURE: Severe Lifestyle limiting claudication PREOP DIAGNOSIS: Severe Lifestyle limiting claudication PLANNED PROCEDURE: Operation Date: 02/17/22 07:00 Proposed Procedures p Peripheral Diagnostic(Bilateral) - José Luis Sheridan M.D Possible percutaneous intervention ?66-year-old female with past medical history of hypertension, diabetes, tobacco abuse, COPD, sleep apnea who has been having severe lifestyle limiting claudication. Right leg is worse. She underwent ultrasound that showed a significant right mid external iliac artery stenosis. CTA was performed that shows multiple level disease bilaterally including right iliac artery and bilateral SFAs. Patient is here for peripheral angiogram with possible intervention. ROS CONSTITUTIONAL: No fever chills weight loss or gain or night sweats. [] HEENT: Normocephalic, atraumatic.[] RESPIRATORY: Chronic shortness of breath CARDIOVASCULAR: No shortness of breath, chest pain, PND, orthopnea, lower extremity edema, presyncope or syncope. [] GI: no nausea vomiting diarrhea. [] SHIRT PRESSER: No numbness, tingling, weakness or loss of function in any part of the body. [] MUSCULOSKELETAL: No knee or joint pain or rashes. [] Medications/Allergies* Home Medications Medication Instructions Recorded Confirmed Type oxygen-air delivery systems #1 07/30/20 02/02/22 History nystatin 100,000 unit/gram topical 1 applic TOPICAL BID PRN g 12/29/21 02/16/22 History ointment polyethylene glycol 3350 17 17 g PO DAILY PRN gm 12/29/21 02/16/22 History gram/dose oral powder (Miralax) Allergies/Adverse Reactions Allergy/AdvReac Type Severity Reaction Status Date / Time Sulfa (Sulfonamide Allergy Mild VOMITING Verified 02/16/22 13:02 Antibiotics) Pertinent History/Comorbid Conditions* Medical History (Updated 01/02/22 @ 17:07 by José Luis Sheridan M.D) Chronic GERD Chronic post-traumatic stress disorder Deviated septum Major depressive disorder, recurrent, in partial remission Nasal turbinate hypertrophy Obstructive sleep apnea Psychiatric care Type 2 diabetes mellitus Vitamin B12 deficiency Surgical History (Updated 12/30/19 @ 13:50 by Tay Archuleta MD) History of nasal surgery Family History (Updated 12/24/19 @ 09:49 by Kathryn Echols LPN) Diabetes CAD (coronary artery disease) Depression Cancer Hypertension Stroke Social History Smoking and tobacco status: current every day smoker cigarettes Packs smoked per day: 2 Quit status (tobacco): considering quitting Second hand smoke exposure: No Smoking risk assessment/counseling performed?: No Alcohol intake: never Desire information about alcohol rehabilitation?: No Counseling given: No Desire information about substance/drug rehabilitation?: No Counseling given: No Lives independently: Yes Household members: none Marital status: / Current occupational status: retired History of recent travel: No Current gender identity: Female Pertinent Exam Findings alert, oriented x 3, clear to auscultation bilaterally and regular rate & rhythm Conscious Sedation Assessment PATIENT ASSESSED PRIOR TO SEDATION, WITH NO CHANGE NOTED: Yes AIRWAY EVAL/ANESTHESIA PLAN: normal airway, ASA III, Monitored Anesthesia, Local Anesthesia, Risks, benefits & alternatives of sedation and/or procedure discussed and Patient agrees to continue as planned Recommendations Surgery/Procedure today (Peripheral angiogram with possible percutaneous intervention) Coding Level of Care Code Acute Cloth Bleaching Supervisor for Mario Rodgers
--- NOTE | 2022-02-17 10:07 | PC.CHAP ---
Pastoral Care Encounter/Spiritual Assessment Type of Contact [x] Declined farm management agent visit [] Patient/Family/Request visit [] Outpatient visit [] Follow-up visit [] Physician referral [] Code/Alert [] Routine visit [] Staff referral [] Actively dying [] Patient sleeping [] Family support [] [] Out of room [] Palliative care [] [] Receiving care in room [] Pre-surgical visit [] Trauma [] Long length of stay [] ICU visit [] Other: Relational/Emotional Strength [] Patient feels connected with others/family/visitors/staff [] Distress [] Loneliness/isolation [] Abandonment Spirituality of Patient [] Person of Camelia [] Attends Pentecostalism of their Camelia [] Believes in Prayer [] Reads Bible or Quaker materials [] There are Spiritual issues to be addressed Partner Management Consultant Interventions [] Prayer [] Active listening [] Non-anxious presence [] Spiritual/emotional support [] Crisis/trauma care [] Spiritual counseling [] Bereavement support [] Provided bereavement packet [] Provided Bible/devotional materials [] Provided toy/stuffed animal, coloring book to patient or family member [] Provided Communion [] Anointing/[place] [] Salvation [] Completed spiritual assessment [] Other: Impact on Illness or Injury [] Angry [] Fearful [] Anxious [] Often cries [] Exhaustion [] Unable to work [] Unable to attend presybeterian [] Unable to walk/stand [] Unable to read [] Unable to drive [] Unable to eat/drink [] Unable to sleep [] Unable to be with family [] Patient intubated [] Other: Summary Declined farm management agent visit Time spent with patient 5 mins
[2022-02-17 12:44] LABS: Partial Thromboplastin Time 207.7 SECONDS (23.9-36.7)
[2022-02-17 16:16] LABS: Partial Thromboplastin Time 28.6 SECONDS (23.9-36.7)
[2022-02-17] MEDS: metoprolol tartrate 25 mg Tablet PO (18:22)
[2022-02-17] MEDS: sodium chloride 0.9% 1,000 ML 100 ML IV (18:26)
--- NOTE | 2022-02-17 19:21 | PC.NURSE ---
1831 Dr Sheridan at bedside for assessment instructions to order cbc Bmp and decrease fluids at 2000 form 100ml/hr to 50ml/hr
[2022-02-17] MEDS: atorvastatin 40 mg Tablet 20 MG PO (19:52)
[2022-02-17] MEDS: prazosin 1 mg Capsule PO (19:52)
[2022-02-17 20:23] LABS: Glucose Point of Care 128 mg/dL (70-110)
[2022-02-18 02:51] VITALS: PULSE 72
--- NOTE | 2022-02-18 03:37 | PC.NURSE ---
Patient ambulated with nurse at 2300. Left groin, distal, and vital signs WNL.
[2022-02-18 03:38] LABS: Hematocrit 39.7 % (37.0-47.0); Hemoglobin 12.2 g/dL (11.5-15.3); Mean Corpuscular HGB Conc 30.7 g/dL (30.0-36.0); Mean Corpuscular Hemoglobin 28.5 pg (28.0-34.0); Mean Corpuscular Volume 92.8 fl (81-99); Mean Platelet Volume 10.3 fL (7.4-10.4); Platelet Count 192 10^3/cmm (130-400); Red Blood Count 4.28 10^6/uL (4.1-5.3); Red Cell Distribution Width 13.4 % (12.1-15.1); White Blood Count 11.1 10^3/uL (4.0-10.0)
[2022-02-18 03:52] LABS: Anion Gap 13.7 (5-19); Blood Urea Nitrogen 10 mg/dL (8-23); Calcium 9.2 mg/dL (8.5-10.5); Carbon Dioxide 26 mmol/L (22-29); Chloride 103 mmol/L (98-107); Glomerular Filtration Rate 71.3 mL/min (90-130); Glucose 126 mg/dL (65-115); Osmolality Calculated 289 mOsm/kg (285-295); Potassium 3.7 mmol/L (3.5-5.1); Sodium 139 mmol/L (136-145)
[2022-02-18 04:00] VITALS: BP 132/48; PULSE 74; RESP 15; TEMP 36.9; O2SAT 95
[2022-02-18 04:08] LABS: Eosinophils 0 %; Lymphocytes 31 %; Lymphocytes Absolute 3.8 10^3/cmm (1.2-3.4); Monocytes Absolute 0.3 10^3/cmm (0.1-0.6); Platelet Estimate Normal (Normal); Segmented Neutrophils 81 %; Total Cells Counted 100 (0-100)
--- NOTE | 2022-02-18 06:58 | PM.SDS ---
Short Stay Summary Providers Date of Admit/Discharge: 02/17/22 Attending Provider: José Luis Sheridan M.D Primary Care Provider: NIRALI Beck Chief Complaint: [id number] i73.9 HPI History of Present Illness 66-year-old female with past medical history of hypertension, diabetes, tobacco abuse, COPD, sleep apnea who has been having severe lifestyle limiting claudication.? Right leg is worse.? She underwent ultrasound that showed a significant right mid external iliac artery stenosis.? CTA was performed that shows multiple level disease bilaterally including right iliac artery and bilateral SFAs.? Patient is here for peripheral angiogram with possible intervention. Review of Systems Narrative: Pt is feeling well Const: Reports: fatigue; Denies: fever(s) or chills Eyes: Denies: change in vision Card: Reports: chest pain, palpitations, irregular heart rhythm, swelling of feet/ankles, lightheadedness, dyspnea on exertion and orthopnea Resp: Reports: dyspnea and productive cough GI: Denies: abdominal pain, nausea or vomiting Musc: Reports: back pain and extremity pain; Denies: neck pain or joint pain Neuro: Reports: headache(s) and dizziness Psych: Reports: anxiety; Denies: depression, suicidal ideation or homicidal ideation Endo: Reports: tired all the time Oleg/Lymph: Reports: easy bruising and easy bleeding Home Meds/Allergies Home Medications and Allergies Home Medications Medication Instructions Recorded Confirmed Type oxygen-air delivery systems #1 07/30/20 02/28/22 History nystatin 100,000 unit/gram topical 1 applic TOPICAL BID PRN g 12/29/21 02/28/22 History ointment polyethylene glycol 3350 17 17 g PO DAILY PRN gm 12/29/21 02/28/22 History gram/dose oral powder (Miralax) Allergies Allergy/AdvReac Type Severity Reaction Status Date / Time Sulfa (Sulfonamide Allergy Mild VOMITING Verified 02/28/22 08:31 Antibiotics) PFSH Acute PFSH: Medical History Chronic GERD Chronic post-traumatic stress disorder Deviated septum Major depressive disorder, recurrent, in partial remission Nasal turbinate hypertrophy Obstructive sleep apnea Psychiatric care Type 2 diabetes mellitus Vitamin B12 deficiency Surgical History History of nasal surgery Family History Other CAD (coronary artery disease) Cancer Depression Diabetes Hypertension Stroke Social History Smoking and tobacco status: current every day smoker cigarettes Packs smoked per day: 2 Quit status (tobacco): considering quitting Second hand smoke exposure: No Smoking risk assessment/counseling performed?: No Alcohol intake: never Desire information about alcohol rehabilitation?: No Counseling given: No Desire information about substance/drug rehabilitation?: No Counseling given: No Lives independently: Yes Household members: none Marital status: / Current occupational status: retired History of recent travel: No Current gender identity: Female Vitals/I&O/Wt Last Vital Signs Temp 98.5 F 02/18/22 04:00 Pulse 74 02/18/22 04:00 Resp 15 02/18/22 04:00 BP 132/48 02/18/22 04:00 Pulse Ox 95 02/18/22 04:00 02/17/22 02/17/22 02/18/22 14:59 22:59 06:59 Intake Total 240 / 240 131.667 / 371.667 Output Total 475 / 475 Balance 240 / 240 -343.333 / -103.333 Weight last 48 hrs Weight 184 lb Weight 184 lb Physical Exam Narrative: GENERAL: Patient is alert, awake and oriented x3. [] NECK: No jugular vein distension. [] HEENT: No cyanosis. No icterus. No pallor. [] HEART: Regular S1 and S2. No murmur, rub or gallop. [] LUNGS: Clear to auscultate bilaterally. [] ABDOMEN: Soft, nontender and nondistended. Positive bowel sounds. No guarding, rebound or tenderness. [] CENTRAL NERVOUS SYSTEM: Grossly nonfocal. [] EXTREMITIES: Lower extremities with 1+ edema bilaterally. Pulses palpable in the lower extremities, weak on the left lower extremity. Hospital Course Admission Diagnoses Severe lifestyle limiting claudication Hospital Course 66-year-old female with past medical history of hypertension, diabetes, tobacco abuse, COPD, sleep apnea who has been having severe lifestyle limiting claudication.? Right leg is worse.? She underwent ultrasound that showed a significant right mid external iliac artery stenosis.? CTA was performed that shows multiple level disease bilaterally including right iliac artery and bilateral SFAs.? Patient is here for peripheral angiogram with possible intervention. Patient underwent peripheral angiogram that demonstrated severe bilateral PAD. Right common femoral and proximal SFA had severe disease. Mid SFA was totally occluded with reconstitution of the vessel distally. She underwent a successful revascularization with orbital arthrectomy and balloon angioplasty. Plan for revascularization of left lower extremity as a staged procedure. Patient was observed overnight and she did well. She was discharged in a stable condition. SSS Data Data Completed and Pending: Pending at discharge Category Date Time Status PASSENGER RELATIONS REPRESENTATIVE request for service Routin e Exams 02/17/22 07:00 Taken Discharge Plan Discharge Patient Disposition: Home Condition: Stable Prescriptions: New clopidogrel 75 mg Tablet 75 mg PO DAILY Qty: 90 3RF Continued polyethylene glycol 3350 [Miralax] 17 gram/dose powder 17 g PO DAILY PRN (Reason: Diarrhea) 0RF (DME) oxygen-air delivery systems Device See Rx Instructions .ROUTE .MEDSUPPLY Qty: 1 0RF Rx Instructions: As directed. 4L at h.s nystatin 100,000 unit/gram ointment 1 applic topical BID PRN (Reason: Rash) 0RF prazosin 1 mg capsule 1 mg PO .bedtime Qty: 30 6RF Rx Instructions: Take one capsule at bedtime duloxetine [Cymbalta] 30 mg capsule,delayed release(DR/EC) 30 mg PO .morning Qty: 30 6RF Rx Instructions: Take one capsule every morning aspirin [Aspirin Childrens] 81 mg tablet,chewable 81 mg PO DAILY Qty: 90 0RF lorazepam [Ativan] 0.5 mg tablet 0.5 mg PO DAILY PRN (Reason: anxiety) Qty: 30 3RF Rx Instructions: Take one tablet daily as needed for severe anxiety valsartan 40 mg tablet 40 mg PO BID Qty: 180 3RF Rx Instructions: 40 mg PO twice a day; formoterol fumarate [Perforomist] 20 mcg/2 mL solution for nebulization 2 ml inhalation BID 90 Days Qty: 120 1RF budesonide 0.5 mg/2 mL suspension for nebulization 0.5 mg inhalation DAILY 90 Days Qty: 120 1RF famotidine 40 mg tablet See Rx Instructions .ROUTE .COMPLEX Qty: 90 0RF Dose Instruction: TAKE 1/2 TABLET(20 MG) BY MOUTH TWICE DAILY Rx Instructions: TAKE 1/2 TABLET(20 MG) BY MOUTH TWICE DAILY lancets [OneTouch Delica Plus Lancet] 33 gauge misc See Rx Instructions .ROUTE .COMPLEX Qty: 100 0RF Dose Instruction: TEST BLOOD SUGAR ONCE DAILY DIRECTED Rx Instructions: TEST BLOOD SUGAR ONCE DAILY DIRECTED (DME) OneTouch Ultra Test Strip See Rx Instructions .ROUTE .COMPLEX Qty: 100 0RF Dose Instruction: TEST BLOOD SUGAR ONCE EVERY DAY Rx Instructions: TEST BLOOD SUGAR ONCE EVERY DAY Januvia 100 mg tablet See Rx Instructions .ROUTE .COMPLEX Qty: 90 0RF Dose Instruction: TAKE 1 TABLET BY MOUTH DAILY Rx Instructions: TAKE 1 TABLET BY MOUTH DAILY metoprolol tartrate 100 mg tablet See Rx Instructions .ROUTE .COMPLEX Qty: 180 0RF Dose Instruction: TAKE 1 TABLET BY MOUTH TWICE DAILY Rx Instructions: TAKE 1 TABLET BY MOUTH TWICE DAILY amlodipine 10 mg tablet See Rx Instructions .ROUTE .COMPLEX Qty: 90 0RF Dose Instruction: TAKE 1 TABLET BY MOUTH DAILY Rx Instructions: TAKE 1 TABLET BY MOUTH DAILY atorvastatin 20 mg tablet See Rx Instructions .ROUTE .COMPLEX Qty: 90 0RF Dose Instruction: TAKE 1 TABLET BY MOUTH DAILY Rx Instructions: TAKE 1 TABLET BY MOUTH DAILY No Action Trulicity 0.75 mg/0.5 mL pen injector See Rx Instructions .ROUTE .COMPLEX Qty: 2 0RF Dose Instruction: ADMINISTER 0.75 MG UNDER THE SKIN 1 TIME WEEKLY Rx Instructions: ADMINISTER 0.75 MG UNDER THE SKIN 1 TIME WEEKLY Discharge Orders: Discharge Order (Routine); Ordered 02/18/22 Ordered By: José Luis Sheridan Referrals: José Luis Sheridan M.D [Physician] - 1 month (Your follow up appointment with Dr. Sheridan is on 04-14-22 at 3:30 p.m. Please call [phone] if you have any questions or concerns. Thank you.) Kelly Monreal FNP [Nurse Practitioner] - 7-10 days (Your follow up appointment with Kelly Monreal is on 02-28-22 at 10:00 a.m. Please call [phone] if you have any questions or concerns. ) Discharge Diet: Diabetic Discharge Activity: Increase activity as tolerated Patient Instructions: Peripheral Vascular Angioplasty (DC), Opioid Safety, Post Angiogram Home Care Instructions Activity Restrictions/Additional Instructions: Please do not lift more than 5 pounds of weight for the next 5 days Attestations Medical Necessity Statement*: Care not expected to cross 2 midnights. Time Spent in Patient Care*: less than 30 min Quality Metrics Clinical Quality Measures: [ No reported AMI, CVA or VTE this stay] Coding Level of Care Code Acute Technical Training Coordinator for Mario Rodgers
[2022-02-18 07:03] VITALS: BP 148/75; PULSE 81; RESP 16; TEMP 36.9; O2SAT 97
[2022-02-18] MEDS: amlodipine 10 mg Tablet PO (08:16)
[2022-02-18] MEDS: clopidogrel 75 mg Tablet PO (08:16)
[2022-02-18] MEDS: aspirin 81 mg Chew Tablet PO (08:16)
[2022-02-18] MEDS: metoprolol tartrate 25 mg Tablet PO (08:16)
[2022-02-18] MEDS: duloxetine 30 mg Capsule PO (08:16)
--- NOTE | 2022-02-18 09:00 | PC.NURSE ---
Discharge Note Patient discharged to Home via private vehicle accompanied by family. Discharge instructions reviewed with patient and/or civil rights representative. Mobile pharmacy medications and/or prescriptions provided. Belongings/home medications returned.
--- NOTE | 2022-02-18 09:00 | PC.NURSE ---
Discharge Note Patient discharged to [] via [] accompanied by []. Discharge instructions reviewed with patient and/or insurance claims representative. Mobile pharmacy medications and/or prescriptions provided. Belongings/home medications returned.
[2022-02-18 09:37] VITALS: BP 148/75; PULSE 81; RESP 16; TEMP 36.9; O2SAT 97
== END 2022-02-18 09:00 | disposition home or self-care (01) ==
LOC: CSU 08:57
PROVIDERS: Admitting Provider Internal Medicine; PCP Registered Nurse; Visit Provider Internal Medicine
DX: I65.21 Occlusion and stenosis of right carotid artery (principal); I73.9 Peripheral vascular disease, unspecified; I10 Essential (primary) hypertension; E11.9 Type 2 diabetes mellitus without complications; F17.210 Nicotine dependence, cigarettes, uncomplicated; J44.9 Chronic obstructive pulmonary disease, unspecified; Z99.81 Dependence on supplemental oxygen; G47.33 Obstructive sleep apnea (adult) (pediatric)
CPT/HCPCS: 36415; 36416; 37224; 37225; 37228; 75625; 75716; 80048; 82962; 85007; 85027; 85730; C1724; C1725; C1769; C1887; C1894; G0378; J1644; J2250; J3010; J3490; J7030; Q0163; Q9967

== ENCOUNTER → 2022-02-28 09:50 | Outpatient (BNVA) | payer MEDICARE, MEDICAID, SELFPAY | PROVIDERS: PCP Registered Nurse; Visit Provider Nurse Practitioner Family | DX: I73.9 Peripheral vascular disease, unspecified (principal); F17.210 Nicotine dependence, cigarettes, uncomplicated | CPT/HCPCS: 36415; 80048; 99214 ==

== ENCOUNTER → 2022-03-29 13:40 | Outpatient (BNVA) | payer MEDICARE, MEDICAID, SELFPAY | PROVIDERS: PCP Registered Nurse; Visit Provider Registered Nurse | DX: E11.9 Type 2 diabetes mellitus without complications (principal); I10 Essential (primary) hypertension | CPT/HCPCS: 80053; 80061; 83036 ==

== ENCOUNTER → 2022-04-14 15:11 | Outpatient (BNVA) | payer MEDICARE, MEDICAID, SELFPAY | PROVIDERS: PCP Registered Nurse; Visit Provider Internal Medicine | DX: Z09 Encounter for follow-up examination after completed treatment for conditions other than malignant neoplasm (principal); I73.9 Peripheral vascular disease, unspecified; I10 Essential (primary) hypertension; F17.210 Nicotine dependence, cigarettes, uncomplicated; G47.33 Obstructive sleep apnea (adult) (pediatric); E11.9 Type 2 diabetes mellitus without complications; Z79.4 Long term (current) use of insulin; R53.83 Other fatigue | CPT/HCPCS: 99214 ==

== ENCOUNTER → 2022-04-28 08:51 | Outpatient (BNVA) | payer MEDICARE, MEDICAID, SELFPAY | PROVIDERS: PCP Registered Nurse; Visit Provider Internal Medicine | DX: I10 Essential (primary) hypertension (principal); R58 Hemorrhage, not elsewhere classified | CPT/HCPCS: 80048; 85025; 85610 ==

== ENCOUNTER 2022-05-02 10:48 | Observation (INO) | payer MEDICARE, MEDICAID, SELFPAY ==
[2022-05-02] VITALS (22 sets, daily range): BP systolic 102–162; BP diastolic 45–88; PULSE 57–75; RESP 10–27; TEMP 36.6–36.8; O2SAT 93–100; BMI 29.7
[2022-05-02] MEDS: diphenhydrAMINE 50 mg Capsule PO (09:00)
--- NOTE | 2022-05-02 09:00 | XACV_ITS ---
Ht: 163 cm Wt: 78 kg BSA: 1.91 m2 Any Known Allergies: Other Gender: Female : 1955 Exam Type: Invasive Peripheral Vascular Procedure(s): Procedure Description: Peripheral Cath Diagnostic Procedure Procedure Description: Abdominal aortic angiography Procedure Description: Lower extremities' angiography Procedure Description: Peripheral vascular Intervention Procedure Description: PV Balloon Procedure Description: PV Atherectomy Exam Priority: Routine Lower Extremity Diagnostic Findings INDICATION: Patient had severe bilateral lifestyle limiting claudication. She underwent successful revascularization of right lower extremity on 02/17/2022 and is here for staged revascularization of left lower extremity. For full diagnostic report, please refer to findings from 02/17/2022. Left common femoral artery: Patent Left SFA: Ostially occluded. Reconstitutes in the distal segment via collaterals. Left profunda artery: Patent Left popliteal artery: Patent Left anterior tibial artery: Patent Left TP segment: Patent Left posterior tibial artery: Patent Left peroneal artery: Patent. Left Superficial Femoral Artery: 100% stenosis. Lower Extremity Interventional Findings Left Mid-longitudinal Superficial Femoral Artery: 100 % stenosis treated with AB Halls 35 COCOA ROASTER Catheter [id number] and AB ARMADA 35 OTW [id number]. Procedure detail: We obtained access in right common femoral artery. Using a UF catheter, Glidewire was advanced into the profunda artery. Over the Glidewire we switched short 6 [place] sheath to long sheath. We then used seeker support catheter and Glidewire to cross totally occluded SFA long segment. IV heparin was administered. Glidewire was exchanged to a Viper wire through seeker catheter. Orbital arthrectomy was performed for ostial to mid SFA artery. This was followed by balloon angioplasty with 5.0 x 250 mm balloon. We then performed balloon angioplasty with 4.0 x 80 mm balloon in the distal SFA segment. At this time final angiogram was performed that showed excellent vessel expansion. Sheath was exchanged back to short sheath and was sutured in place for removal later.. Conclusions Totally occluded ostial to distal left SFA s/p successful revascularization with orbital arthrectomy and balloon angioplasty.. Left Superficial Femoral Artery was treated with two Balloon. Recommendations Continue aspirin and Plavix. Exercise and smoking cessation advised. Outpatient cardiology follow up in 4 weeks. Hemodynamic Data Phase:Rest AO : 133.0 / 73.0 ( 61.0 ) @ 11:16:00 AM 92.0 / 40.0 ( 60.0 ) @ 11:17:00 AM 91.0 / 39.0 ( 60.0 ) @ 11:20:00 AM 84.0 / 45.0 ( 55.0 ) @ 11:27:00 AM 128.0 / 64.0 ( 82.0 ) @ 11:27:00 AM 132.0 / 53.0 ( 81.0 ) @ 11:27:00 AM 220.0 / 101.0 ( 115.0 ) @ 11:27:00 AM 141.0 / 53.0 ( 85.0 ) @ 11:27:00 AM 125.0 / 57.0 ( 88.0 ) @ 11:29:00 AM 146.0 / 58.0 ( 93.0 ) @ 11:33:00 AM Access Site Site: Right Femoral artery Sheath Size: 6 Fr Hemost... Method: Suture Hemost... Success: Successful Procedure Details Findings Pre-Procedure Time Out. Identified patient by full name and date of as verbalized by the patient/guarantor. Does the consent match the physician's order: Yes. Accurate & Complete Informed Consent: Yes. Inpatient/Outpatient History & Physical on Chart: Yes. If H&P is completed, is and addenduem needed: No; If yes, is the addendum complete: N/A. Visualize and Verify Site with Patient/Guarantor: N/A. Relevant Radiology Images available: N/A. Pre-op teaching completed and patient verbalized understanding. The risks, benefits, and alternatives of sedation and/or procedure were discussed by physician. The patient agrees to continue. Procedure started. Correct patient, site and procedure confirmed by cath team. Current diagnosis: Severe Lifestyle Limiting Claudication. PERRLA. Strong, equal hand real estate management specialist bilaterally. Lungs clear x 5 lobes. IV Site on Arrival: 20 gauge in the right anticubital. IV Fluids: 0.9% NaCl at KVO. 0 mL infused prior to general laborer. Pre Procedural Pulses: bilateral posterior tibial was Doppled. Pre Procedural Pulses: bilateral dorsalis pedis was Doppled. Pre Procedural Pulses: bilateral radial was 2+. Oxygen started at 3liters/min via nasal canula. bilateral groins was prepped with chloroprep then draped in the usual sterile fashion. Physician notified. Baseline sample Acquired. HR: 65 BPM. Physician arrived. Physician scrubbed in. Admit Source: Out Patient. Lidocaine 1% infiltrated to the right groin. Arterial access obtained. Patient had haynes catheter placed in CPRU. A 5 Fr UF catheter in over the glide wire. Glidewire advanced down the profunda on the left side. UF catheter removed. Equipment: 6F - Femoral. Cardiac Cath Pack. ACIST Manifold Kit Model BT 2000. Heparinized Saline (2 units/mL), 1000 mL bag. Sheath upsized to a 6 Fr. Sheath exchanged for a 6 fr 45cm flexor. Left common iliac selected and arteriogram with runoff performed @ 10 mL/sec for a total of 30 mL. Seeker inserted over the glidewire. Glidewire/Seeker advanced down the SFA on the left side to the popliteal. Glidewire removed. Hand injection through the seeker using digital subtraction of the popliteal/Trifuctation vessels. Viper wire inserted and seated in the Peroneal, Left. Seeker removed. 1.5 CSI vinh inserted. Atherectomy of left SFA performed. Sheath to KVO to maintain patency. [place] removed over the wire. Wire pulled back to mid SFA while removing vinh. Results checked. Seeker inserted over the wire. Viper wire removed. Glidewire inserted. Advanced seeker/glide to the trifuctation/Peroneal Left. Glidewire removed. Viperwire inserted. Seeker removed. Inflation number : 1 A AB Halls 35 COCOA ROASTER Catheter [id number] was prepped and advanced across the Superficial Femoral, Left , then inflated to 8 SARAHI for 0:29 seconds. Inflation number: 2 The AB Halls 35 COCOA ROASTER Catheter [id number] was reinflated across the Superficial Femoral, Left, to 8 SARAHI for 1:29 seconds. Balloon out over the wire. Inflation number : 3 A AB ARMADA 35 OTW [id number] was prepped and advanced across the Superficial Femoral, Left , then inflated to 10 SARAHI for 1:33 seconds. Inflation number: 4 The AB ARMADA 35 OTW [id number] was reinflated across the Superficial Femoral, Left, to 6 SARAHI for 1:03 seconds. Balloon out over the wire. Left common femoral selected and arteriogram with runoff performed @ 10 mL/sec for a total of 30 mL. Left superficial femoral selected and arteriogram using digital subtraction performed @ 10 mL/sec for a total of 20 mL. Left superficial femoral selected and arteriogram using digital subtraction was performed @ 10 mL/sec for a total of 20 mL. Glidewire removed. Sheath Exchanged for a 6 fr SHORT SHEATH. Physcian review of films. Physician scrubbed out. Sheath upsized to a 6 Fr. A Suture was successful obtaining hemostatsis at the Right Femoral artery insertion site. Sheath(s) sutured into position with 2-0 silk and sterile 4x4's and Op-site applied over the site. No oozing or signs and symptoms of hematoma noted. Arterial sheath flushed and connected to tranducer and pressure bag with heparinized saline. Post Procedure: Pulses reassessed and unchanged. PERRLA. Strong, equal hand real estate management specialist bilaterally. No VTE prophylaxis required. Medication Waste: Fentanyl 25 mcg Heparin 3000 units Nitro 49.7 mg. Total IV fluids: 117 mL. Fluoro: 18:02. Contrast type used: Visipaque 320 mgI/mL, 200 mL bottle. Visipaque 132 ml. Post-op diagnosis: Severe PAD of left lower extremity; Occluded left SFA. Complications: None. Estimated blood loss: 5mL-10mL. Responsiveness - Normal response to verbal stimuli; alert and oriented, PERRLA. Airway - Unaffected, no intervention required; spontaneous ventilation. Circulation: W/N/L, pulses unchanged. Nausea/Vomiting: No. Procedure completed. Patient transferred by bed to 1st floor. Vital chart was stopped. Procedure Medications Start: 9:45 AM Stop: 9:45 AM Medication: Versed Amount: 1 mg Route: I.V. Start: 9:45 AM Stop: 9:45 AM Medication: Fentanyl Amount: 50 mcg Route: I.V. Start: 9:50 AM Stop: 9:50 AM Medication: Versed Amount: 1 mg Route: I.V. Start: 10:02 AM Stop: 10:02 AM Medication: Versed 1 mg and Fentanyl 25 mcg Amount: 1 Route: I.V. Start: 10:13 AM Stop: 10:13 AM Medication: Heparin Amount: 3000 units Route: I.V. Start: 10:24 AM Stop: 10:24 AM Medication: Heparin Amount: 3000 units Route: I.V. Start: 10:32 AM Stop: 10:32 AM Medication: Versed Amount: 1 mg Route: I.V. Start: 10:36 AM Stop: 10:36 AM Medication: Nitrogylcerin Amount: 300 mcg Route: I.A. Start: 10:41 AM Stop: 10:41 AM Medication: Heparin Amount: 1000 units Route: I.V. Start: 10:49 AM Stop: 10:49 AM Medication: Plavix Amount: 300 mg Route: P.O. I, the attending physician, have reviewed and verified all procedure medications. Yes, all medications given per verbal order History/Risk Factors Hypertension: Yes Dyslipidemia: Yes Peripheral Arterial Disease (PAD): No Obesity: No Renal Disease: No Tobacco Use: Current/Recent(w/in 1 year) Prior Interventions PCI: No CABG: No Valve Surgery: No Report Signatures Finalized by José Luis Sheridan MD on 05/04/2022 11:49 AM
--- NOTE | 2022-05-02 09:42 | W.PM.OPSUD ---
Surgery/Procedure H&P Update DATE OF PROCEDURE: May 02, 2022 DATE H&P PERFORMED: 04/14/22 H&P UPDATE INFORMATION: I have reviewed H&P completed within last 30 days, I have examined patient prior to procedure and No changes to prior documentation PREOP DIAGNOSIS: Severe Lifestyle limiting claudication PRIMARY INDICATION FOR PROCEDURE: Severe Lifestyle limiting claudication PLANNED PROCEDURE: Operation Date: 05/02/22 10:00 Proposed Procedures p Peripheral Diagnostic(Bilateral) - José Luis Sheridan M.D Percutaneous intervention of the left lower extremity PATIENT REASSESSED PRIOR TO SEDATION, WITH NO CHANGE NOTED: Yes PHYSICAL EXAM: alert, oriented x 3, clear to auscultation bilaterally and regular rate & rhythm AIRWAY EVAL/ANESTHESIA PLAN: ASA III, Local Anesthesia, Risks, benefits & alternatives of sedation and/or procedure discussed and Patient agrees to continue as planned ADDITIONAL INFORMATION: Moderate sedation
[2022-05-02] MEDS: atorvastatin 40 mg Tablet 20 MG PO (14:10)
[2022-05-02] MEDS: duloxetine 30 mg Capsule PO (14:10)
[2022-05-02 14:11] LABS: Partial Thromboplastin Time 111.5 SECONDS (23.9-36.7)
[2022-05-02 17:05] LABS: Partial Thromboplastin Time 29.1 SECONDS (23.9-36.7)
[2022-05-02] MEDS: losartan 50 mg Tablet 12.5 MG PO (17:30)
[2022-05-02 20:43] LABS: Glucose Point of Care 135 mg/dL (70-110)
[2022-05-02] MEDS: fentaNYL 50 mcg/mL INJ 2mL IVP (20:48)
[2022-05-02] MEDS: prazosin 1 mg Capsule PO (21:04)
[2022-05-03] VITALS (11 sets, daily range): BP systolic 103–140; BP diastolic 42–60; PULSE 66–81; RESP 12–20; TEMP 37; O2SAT 96–99
[2022-05-03] MEDS: fentaNYL 50 mcg/mL INJ 2mL IVP (02:02)
[2022-05-03 03:42] LABS: Basophils # 0.1 10^3/uL (0.0-0.1); Basophils % 0.5 %; Eosinophils # 0.3 10^3/uL (0.0-0.8); Eosinophils % 2.4 %; Hematocrit 32.5 % (37.0-47.0); Hemoglobin 10.7 g/dL (11.5-15.3); Lymphocytes # 2.5 10^3/uL (0.8-4.8); Mean Corpuscular HGB Conc 32.9 g/dL (30.0-36.0); Mean Corpuscular Hemoglobin 29.2 pg (28.0-34.0); Mean Corpuscular Volume 88.8 fl (81-99); Mean Platelet Volume 10.5 fL (7.4-10.4); Monocytes # 0.9 10^3/uL (0.2-0.9); Monocytes % 7.1 %; Neutrophils # 8.54 10^3/uL (1.8-7.7); Neutrophils % 69.6 %; Nucleated Red Blood Cells % 0 %; Platelet Count 181 10^3/cmm (130-400); Red Blood Count 3.66 10^6/uL (4.1-5.3); Red Cell Distribution Width 13.1 % (12.1-15.1); White Blood Count 12.3 10^3/uL (4.0-10.0)
[2022-05-03 04:08] LABS: Anion Gap 9.2 (5-19); Blood Urea Nitrogen 16 mg/dL (8-23); Calcium 8.5 mg/dL (8.5-10.5); Carbon Dioxide 30 mmol/L (22-29); Chloride 103 mmol/L (98-107); Glomerular Filtration Rate 83.2 mL/min (90-130); Glucose 119 mg/dL (65-115); Osmolality Calculated 288 mOsm/kg (285-295); Potassium 4.2 mmol/L (3.5-5.1); Sodium 138 mmol/L (136-145)
[2022-05-03] MEDS: atorvastatin 40 mg Tablet 20 MG PO (08:04)
[2022-05-03] MEDS: aspirin 81 mg Chew Tablet PO (08:05)
[2022-05-03] MEDS: amlodipine 10 mg Tablet PO (08:05)
[2022-05-03] MEDS: duloxetine 30 mg Capsule PO (08:05)
[2022-05-03] MEDS: clopidogrel 75 mg Tablet PO (08:05)
[2022-05-03] MEDS: losartan 50 mg Tablet 12.5 MG PO (08:05)
[2022-05-03] MEDS: acetaminophen 325 mg Tablet 650 MG PO (08:07)
[2022-05-03] MEDS: budesonide 0.5 mg/2 mL Neb INHALATION (08:25)
--- NOTE | 2022-05-03 09:15 | P.SS_ITS ---
Short Stay Summary Providers Date of Admit/Discharge: 05/02/22 Attending Provider: José Luis Sheridan M.D Primary Care Provider: NIRALI Beck Chief Complaint: [id number] i73.9 HPI History of Present Illness Samanta Null is a 66 year old female with past medical history of PAD who underwent successful revascularization of right SFA on 02/17/2022 was scheduled for staged revascularization of left SFA as she has severe lifestyle limiting claudication symptoms. Review of Systems Narrative: Pt is feeling well Const: Reports: fatigue Card: Reports: palpitations, swelling of feet/ankles and lightheadedness; Denies: chest pain, irregular heart rhythm, dyspnea on exertion, orthopnea or leg pain with exertion Resp: Reports: dyspnea; Denies: productive cough Musc: Reports: neck pain and back pain Neuro: Reports: headache(s); Denies: dizziness Psych: Denies: anxiety, depression, suicidal ideation or homicidal ideation Oleg/Lymph: Reports: easy bruising and easy bleeding Home Meds/Allergies Home Medications and Allergies Home Medications Medication Instructions Recorded Confirmed Type oxygen-air delivery systems #1 07/30/20 04/14/22 History nystatin 100,000 unit/gram topical 1 applic TOPICAL BID PRN g 12/29/21 04/29/22 History ointment polyethylene glycol 3350 17 17 g PO DAILY PRN gm 12/29/21 04/29/22 History gram/dose oral powder (Miralax) Allergies Allergy/AdvReac Type Severity Reaction Status Date / Time Sulfa (Sulfonamide Allergy Mild VOMITING Verified 04/14/22 15:48 Antibiotics) PFSH Acute PFSH: Medical History Chronic GERD Chronic post-traumatic stress disorder Deviated septum Major depressive disorder, recurrent, in partial remission Nasal turbinate hypertrophy Obstructive sleep apnea Psychiatric care Type 2 diabetes mellitus Vitamin B12 deficiency Surgical History History of nasal surgery Family History Other CAD (coronary artery disease) Cancer Depression Diabetes Hypertension Stroke Social History Smoking and tobacco status: current every day smoker cigarettes Packs smoked per day: 2 Quit status (tobacco): considering quitting Second hand smoke exposure: No Smoking risk assessment/counseling performed?: No Alcohol intake: never Desire information about alcohol rehabilitation?: No Counseling given: No Desire information about substance/drug rehabilitation?: No Counseling given: No Lives independently: Yes Household members: none Marital status: / Current occupational status: retired History of recent travel: No Current gender identity: Female Vitals/I&O/Wt Last Vital Signs Temp 98.6 F 05/03/22 00:30 Pulse 81 05/03/22 08:24 Resp 16 05/03/22 08:24 BP 140/59 05/03/22 08:05 Pulse Ox 99 05/03/22 08:24 05/02/22 05/03/22 05/03/22 22:59 06:59 14:59 Intake Total 240 / 480 Output Total 650 / 650 700 / 1350 Balance -410 / -170 -700 / -870 Weight last 48 hrs Weight 173 lb Physical Exam Narrative: GENERAL: Patient is alert, awake and oriented x3. [] NECK: No jugular vein distension. [] HEENT: No cyanosis. No icterus. No pallor. [] HEART: Regular S1 and S2. No murmur, rub or gallop. [] LUNGS: Clear to auscultate bilaterally. [] ABDOMEN: Soft, nontender and nondistended. Positive bowel sounds. No guarding, rebound or tenderness. [] CENTRAL NERVOUS SYSTEM: Grossly nonfocal. [] EXTREMITIES: Lower extremities with no edema bilaterally. Pulses palpable in the lower extremities, both dorsalis pedis and posterior tibial. [] Urinary Catheter Management: Biswas: Cath Placed During This Visit: yes Reason for Continuing Indwelling Catheter: Required Immobilization for Trauma or Surgery or Anesthesia Urinary Catheter Date of Insertion: 05/02/22 Urinary Catheter Time of Insertion: 08:30 Hospital Course Hospital Course Samanta Null is a 66 year old female with past medical history of PAD who underwent successful revascularization of right SFA on 02/17/2022 was scheduled for staged revascularization of left SFA as she has severe lifestyle limiting claudication symptoms. We performed revascularization with orbital arthrectomy and balloon angioplasty with good results. She stayed overnight in the hospital for observation and did not have any complications. Patient was discharged home in a stable condition with recommendations of smoking cessation, exercise and continuing aspirin and Plavix. 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 4L at h.s nystatin 100,000 unit/gram ointment 1 applic topical BID PRN (Reason: Rash) 0RF prazosin 1 mg capsule 1 mg PO .bedtime Qty: 30 6RF Rx Instructions: Take one capsule at bedtime duloxetine [Cymbalta] 30 mg capsule,delayed release(DR/EC) 30 mg PO .morning Qty: 30 6RF Rx Instructions: Take one capsule every morning aspirin [Aspirin Childrens] 81 mg tablet,chewable 81 mg PO DAILY Qty: 90 0RF lorazepam [Ativan] 0.5 mg tablet 0.5 mg PO DAILY PRN (Reason: anxiety) Qty: 30 3RF Rx Instructions: Take one tablet daily as needed for severe anxiety formoterol fumarate [Perforomist] 20 mcg/2 mL solution for nebulization 2 ml inhalation BID 90 Days Qty: 120 1RF budesonide 0.5 mg/2 mL suspension for nebulization 0.5 mg inhalation DAILY 90 Days Qty: 120 1RF famotidine 40 mg tablet See Rx Instructions .ROUTE .COMPLEX Qty: 90 0RF Dose Instruction: TAKE 1/2 TABLET(20 MG) BY MOUTH TWICE DAILY Rx Instructions: TAKE 1/2 TABLET(20 MG) BY MOUTH TWICE DAILY (DME) OneTouch Ultra Test Strip See Rx Instructions .ROUTE .COMPLEX Qty: 100 0RF Dose Instruction: TEST BLOOD SUGAR ONCE EVERY DAY Rx Instructions: TEST BLOOD SUGAR ONCE EVERY DAY valsartan 40 mg tablet 40 mg PO BID Qty: 180 3RF Rx Instructions: 40 mg PO twice a day; Trulicity 0.75 mg/0.5 mL pen injector See Rx Instructions .ROUTE .COMPLEX Qty: 2 0RF Dose Instruction: ADMINISTER 0.75 MG UNDER THE SKIN 1 TIME WEEKLY Rx Instructions: ADMINISTER 0.75 MG UNDER THE SKIN 1 TIME WEEKLY (DME) lancets [OneTouch Delica Plus Lancet] 33 gauge misc See Rx Instructions .ROUTE .COMPLEX Qty: 100 0RF Dose Instruction: TEST BLOOD SUGAR ONCE DAILY DIRECTED Rx Instructions: TEST BLOOD SUGAR ONCE DAILY DIRECTED atorvastatin 20 mg tablet See Rx Instructions .ROUTE .COMPLEX Qty: 90 0RF Dose Instruction: TAKE 1 TABLET BY MOUTH DAILY Rx Instructions: TAKE 1 TABLET BY MOUTH DAILY amlodipine 10 mg tablet See Rx Instructions .ROUTE .COMPLEX Qty: 90 0RF Dose Instruction: TAKE 1 TABLET BY MOUTH DAILY Rx Instructions: TAKE 1 TABLET BY MOUTH DAILY metoprolol tartrate 100 mg tablet See Rx Instructions .ROUTE .COMPLEX Qty: 180 0RF Dose Instruction: TAKE 1 TABLET BY MOUTH TWICE DAILY Rx Instructions: TAKE 1 TABLET BY MOUTH TWICE DAILY Januvia 100 mg tablet See Rx Instructions .ROUTE .COMPLEX Qty: 90 0RF Dose Instruction: TAKE 1 TABLET BY MOUTH DAILY Rx Instructions: TAKE 1 TABLET BY MOUTH DAILY clopidogrel 75 mg Tablet 75 mg PO DAILY Qty: 90 3RF Discharge Orders: Discharge Order (Routine); Ordered 05/03/22 Ordered By: José Luis Sheridan Referrals: José Luis Sheridan M.D [Physician] - 06/23/22 1:15 pm Kelly Monreal FNP [Nurse Practitioner] - 05/17/22 1:45 pm Discharge Diet: Diabetic Discharge Activity: Increase activity as tolerated Patient Instructions: Basic Carbohydrate Counting (DC), Peripheral Vascular Angioplasty (DC), Opioid Safety Activity Restrictions/Additional Instructions: Please do not lift more than 5 pounds of weight for the next 5 days Attestations Medical Necessity Statement*: Care not expected to cross 2 midnights. Patient came as outpatient peripheral intervention procedure and underwent successful revascularization of left SFA with balloon angioplasty and orbital arthrectomy. She she was observed overnight and was discharged home in a stable condition. Time Spent in Patient Care*: less than 30 min Quality Metrics Clinical Quality Measures: [ No reported AMI, CVA or VTE this stay ] Coding Level of Care Code Acute Claims Specialist for Mario Rodgers
--- NOTE | 2022-05-03 11:06 | PC.NURSE ---
dc'd pts piv, r fem site cdi, some bruising, slightly firm. stable since sheath pull last night. dr tam visualized at bedside, discharged patient. discharge instructions given. no questions from patient or daughter. no changes in medications and follow up appointments made. pt left via [place] to private vehicle.
[2022-05-09 07:22] LABS: Glucose Point of Care 155 mg/dL (70-110)
[2022-05-09 07:24] LABS: Glucose Point of Care 109 mg/dL (70-110)
== END 2022-05-03 10:48 | disposition home or self-care (01) ==
LOC: CSU 10:49 → ICU 18:47
PROVIDERS: Admitting Provider Internal Medicine; PCP Registered Nurse; Visit Provider Internal Medicine
DX: I70.212 Atherosclerosis of native arteries of extremities with intermittent claudication, left leg (principal); G47.33 Obstructive sleep apnea (adult) (pediatric); K21.9 Gastro-esophageal reflux disease without esophagitis; E11.9 Type 2 diabetes mellitus without complications; F17.210 Nicotine dependence, cigarettes, uncomplicated; I10 Essential (primary) hypertension; E78.5 Hyperlipidemia, unspecified; Z79.82 Long term (current) use of aspirin
CPT/HCPCS: 36415; 36416; 37224; 37225; 51702; 75710; 80048; 82962; 85025; 85730; 96360; 99152; 99153; C1724; C1725; C1769; C1887; C1894; G0378; J0461; J1644; J2250; J3010; J3490; J7030; J7626; Q0163; Q9967

== ENCOUNTER → 2022-05-17 13:29 | Outpatient (BNVA) | payer MEDICARE, MEDICAID, SELFPAY | PROVIDERS: PCP Registered Nurse; Visit Provider Nurse Practitioner Family | DX: I73.9 Peripheral vascular disease, unspecified (principal) | CPT/HCPCS: 80048; 99213; 99214 ==

== ENCOUNTER → 2022-06-23 12:46 | Outpatient (BNVA) | payer MEDICARE, MEDICAID, SELFPAY | PROVIDERS: PCP Registered Nurse; Visit Provider Internal Medicine | DX: R53.83 Other fatigue (principal); E11.9 Type 2 diabetes mellitus without complications; Z79.4 Long term (current) use of insulin; G47.33 Obstructive sleep apnea (adult) (pediatric); F17.210 Nicotine dependence, cigarettes, uncomplicated; I10 Essential (primary) hypertension; I73.9 Peripheral vascular disease, unspecified | CPT/HCPCS: 99214 ==

== ENCOUNTER → 2022-10-18 11:46 | Outpatient (BNVA) | payer MEDICARE, MEDICAID, SELFPAY | PROVIDERS: PCP Registered Nurse; Visit Provider Registered Nurse | DX: E11.9 Type 2 diabetes mellitus without complications (principal); I10 Essential (primary) hypertension; I73.9 Peripheral vascular disease, unspecified; Z79.4 Long term (current) use of insulin; Z23 Encounter for immunization | CPT/HCPCS: 80053; 80061; 83036; 85025 ==

== ENCOUNTER → 2023-03-28 10:52 | Outpatient (BNVA) | payer MEDICARE, MEDICAID, SELFPAY | PROVIDERS: PCP Registered Nurse; Visit Provider Registered Nurse | DX: E11.9 Type 2 diabetes mellitus without complications (principal); Z79.4 Long term (current) use of insulin | CPT/HCPCS: 82043; 83036 ==

== ENCOUNTER → 2023-05-12 10:51 | Outpatient (BNVA) | payer MEDICARE, MEDICAID, SELFPAY | PROVIDERS: PCP Registered Nurse; Visit Provider Internal Medicine | DX: I20.0 Unstable angina (principal); I73.9 Peripheral vascular disease, unspecified; I10 Essential (primary) hypertension; E11.9 Type 2 diabetes mellitus without complications; Z79.4 Long term (current) use of insulin; G47.33 Obstructive sleep apnea (adult) (pediatric); F17.210 Nicotine dependence, cigarettes, uncomplicated | CPT/HCPCS: 99215 ==

== ENCOUNTER 2023-05-18 08:48 | Outpatient (CLI) | payer MEDICARE, MEDICAID, SELFPAY ==
[2023-05-18] VITALS (21 sets, daily range): BP systolic 105–147; BP diastolic 40–66; PULSE 58–81; RESP 13–23; TEMP 36.5–37.3; O2SAT 88–96; BMI 30.5
--- NOTE | 2023-05-18 09:00 | XACV_ITS ---
Exam Room: 2 Ht: 163 cm Wt: 81 kg BSA: 1.94 m2 Gender: Female : 1955 Any Known Allergies: Ibuprofen Exam Priority: Routine Procedure(s): Procedure Description: Diagnostic procedure Procedure Description: Left Heart Catheterization Procedure Description: Coronary Angiography Procedure Description: Pressure Wire Diagnostic Cath Status: Elective Diagnostic Findings * Left Main has no significant disease. * Circumflex has no significant disease. * Mid Left Anterior Descending: minimal 30% stenosis, TOI: 3 flow. * Mid Right Coronary Artery: moderate 50% stenosis, TOI: 3 flow. * Coronary angiography shows right dominance. Interventional Findings * PROCEDURE DETAIL: We engaged RCA with JR4 guide catheter. IV heparin was administered to maintain anticoagulation. After normalization, IFR wire was advanced into distal vessel. iFR value of 0.9 was obtained that was nonischemic. Pullback value of 0.93 was obtained. At this time final angiogram was performed. Guide catheter was removed. Patient left the laboratory engineer in a stable condition. . Conclusions 1. Moderate mid RCA stenosis s/p iFR. Non-ischemic iFR value of 0.90. Recommendations * Aggressive risk factor modification. * Outpatient cardiology follow up in 4 weeks. Interventional RX Recommendation: medical therapy and/or counseling Anticoagulation: Heparin Pressures Phase:Rest AO : 152 / 63 ( 98 ) @ 11:11:00 AM 115 / 67 ( 89 ) @ 11:14:00 AM 141 / 56 ( 90 ) @ 11:19:00 AM 141 / 57 ( 90 ) @ 11:19:00 AM 140 / 72 ( 102 ) @ 11:26:00 AM LV : 147 / -8 / 24 @ 11:18:00 AM 148 / -6 / 25 @ 11:19:00 AM Valves Phase:DefaultPhase AV : 7.0 @ 10:45:31 AM AV Mean Gradient: 8.0 @ 10:45:31 AM 8.0 @ 10:45:31 AM Clinical Evaluation EBL: 5mL-10mL Procedural Details Procedure Consent Obtained. Admit Source: Out Patient. Pre-Procedure Time Out. Identified patient by full name and date of as verbalized by the patient/guarantor. Does the consent match the physician's order: Yes. Accurate & Complete Informed Consent: Yes. Inpatient/Outpatient History & Physical on Chart: Yes. If H&P is completed, is and addenduem needed: No; If yes, is the addendum complete: N/A. Visualize and Verify Site with Patient/Guarantor: N/A. Relevant Radiology Images available: N/A. The risks, benefits, and alternatives of sedation and/or procedure were discussed by physician. The patient agrees to continue. Procedure started. [facility] Clinical Fraility Score: 3: Managing Well. Handkerchief Maker Indications: Worsening Angina. Chest Pain Symptom Assessment: Typical Angina Symptoms. Correct patient, site and procedure confirmed by cath team. Current diagnosis: Unstable angina. PERRLA. Strong, equal hand rn behavioral health bilaterally. Lungs clear x 5 lobes. IV Site on Arrival: 20 gauge in the left anticubital. IV Fluids: 0.9% NaCl at KVO. 0 mL infused prior to laboratory engineer. Pre Procedural Pulses: bilateral radial was 3+. Pre Procedural Pulses: bilateral posterior tibial was Doppled. Pre Procedural Pulses: bilateral dorsalis pedis was Doppled. Oxygen started at 2liters/min via nasal canula. right groin was prepped with chloroprep then draped in the usual sterile fashion. right radial was prepped with chloroprep then draped in the usual sterile fashion. Physician notified. Baseline sample Acquired. HR: 68 BPM. Physician arrived. Physician scrubbed in. Immediate Pre-Procedure Time Out. Correct Patient: Yes; Correct Procedure: Yes; Correct Site: Yes; Correct Patient Position: Yes; Correct Supplies: Yes; Dried Flammable Prep: Yes; Blood Products Available: N/A;. Lidocaine 1% infiltrated to the right radial. Arterial access obtained. A 5 marshallese TIG catheter in over wire. Multiple views taken of left coronary artery. Catheter redirected to the RCA. Multiple views taken of right coronary artery. Catheter out. EDP Sample taken: LV 147/-9,24; HR: 72 BPM; SpO2: 97%. Pullback taken: LV 148/-7,25; AO 141/56(90); Mean: 8mmHg, Peak to Peak: 7mmHg, SEP: 20sec/min; HR: 71 BPM; SpO2: 97%. 6 marshallese JR 4 guide catheter was inserted over the wire. IFR spot of the mid RCA 0.90. IFR pullback of mid RCA 0.93. Wire out. Guide catheter out. A TR Band was successful obtaining hemostatsis at the Right Radial artery insertion site. Post Procedure: Pulses reassessed and unchanged. PERRLA. Strong, equal hand rn behavioral health bilaterally. No VTE prophylaxis required. Medication's Wasted: Nitro = 49.4 mg. Medication's Wasted: Heparin = 4000 units. Total IV fluids: 250 mL. Post-op diagnosis: moderate mid RCA stenosis; IFR negative. Complications: none. Estimated blood loss: 5mL-10mL. Responsiveness - Normal response to verbal stimuli; alert and oriented, PERRLA. Airway - Unaffected, no intervention required; spontaneous ventilation. Circulation: W/N/L, pulses unchanged. Nausea/Vomiting: No. Procedure completed. Patient transferred by wheelchair to CPRU. Vital chart was stopped. Access Site Site: Right Radial artery Sheath Size: 6 Fr Hemostasis Method: TR Band Hemostasis Success: Successful Procedure Medications Start: 10:00 AM Stop: 10:00 AM Medication: 0.9% Saline Amount: 250 ml Route: I.V. bolus Start: 10:01 AM Stop: 10:01 AM Medication: Versed 1 mg and Fentanyl 25 mcg Amount: 1 Route: I.V. Start: 10:06 AM Stop: 10:06 AM Medication: Versed Amount: 1 mg Route: I.V. Start: 10:08 AM Stop: 10:08 AM Medication: Nitrogylcerin Amount: 200 mcg Route: I.A. Start: 10:11 AM Stop: 10:11 AM Medication: Heparin Amount: 5000 units Route: I.V. Start: 10:19 AM Stop: 10:19 AM Medication: Versed Amount: 1 mg Route: I.V. Start: 10:20 AM Stop: 10:20 AM Medication: Nitrogylcerin Amount: 200 mcg Route: I.A. Start: 10:21 AM Stop: 10:21 AM Medication: Fentanyl Amount: 25 mcg Route: I.V. Start: 10:23 AM Stop: 10:23 AM Medication: Verapamil Amount: 5 mg Route: I.A. Start: 10:27 AM Stop: 10:27 AM Medication: Fentanyl Amount: 50 mcg Route: I.V. Start: 10:28 AM Stop: 10:28 AM Medication: Versed Amount: 1 mg Route: I.V. Start: 10:29 AM Stop: 10:29 AM Medication: Heparin Amount: 2000 units Route: I.V. Start: 10:35 AM Stop: 10:35 AM Medication: Nitrogylcerin Amount: 200 mcg Route: I.A. I, the attending physician, have reviewed and verified all procedure medications. Yes, all medications given per verbal order History/Risk Factors Hypertension: Yes Dyslipidemia: No Peripheral Arterial Disease (PAD): No Myocardial Infarction (FL): No Obesity: No Tobacco Use: Current/Recent(w/in 1 year) Prior Interventions PCI: No CABG: No Valve Surgery: No Report Signatures Finalized by José Luis Sheridan MD on 05/19/2023 04:33 PM
[2023-05-18] MEDS: diphenhydrAMINE 50 mg Capsule PO (09:15)
[2023-05-18 09:16] LABS: Basophils # 0.1 10^3/uL (0.0-0.1); Basophils % 0.5 %; Eosinophils # 0.3 10^3/uL (0.0-0.8); Eosinophils % 1.5 %; Hematocrit 41.8 % (37.0-47.0); Hemoglobin 13.3 g/dL (11.5-15.3); Lymphocytes # 2.1 10^3/uL (0.8-4.8); Mean Corpuscular HGB Conc 31.8 g/dL (30.0-36.0); Mean Corpuscular Hemoglobin 29.9 pg (28.0-34.0); Mean Corpuscular Volume 93.9 fl (81-99); Mean Platelet Volume 10.1 fL (7.4-10.4); Monocytes # 1.2 10^3/uL (0.2-0.9); Monocytes % 6.1 %; Neutrophils # 15.26 10^3/uL (1.8-7.7); Neutrophils % 80.3 %; Nucleated Red Blood Cells % 0 %; Platelet Count 252 10^3/cmm (130-400); Red Blood Count 4.45 10^6/uL (4.1-5.3); Red Cell Distribution Width 12.9 % (12.1-15.1)
[2023-05-18 09:39] LABS: Anion Gap 16.4 (5-19); Blood Urea Nitrogen 16 mg/dL (8-23); Calcium 9.4 mg/dL (8.5-10.5); Carbon Dioxide 28 mmol/L (22-29); Chloride 101 mmol/L (98-107); Glomerular Filtration Rate 44.5 mL/min (90-130); Glucose 146 mg/dL (65-115); Osmolality Calculated 296 mOsm/kg (285-295); Potassium 4.4 mmol/L (3.5-5.1); Sodium 141 mmol/L (136-145)
--- NOTE | 2023-05-18 09:55 | P.HPUD_ITS ---
Surgery/Procedure H&P Update DATE OF PROCEDURE: May 18, 2023 DATE H&P PERFORMED: 05/12/23 H&P UPDATE INFORMATION: I have reviewed H&P completed within last 30 days, I have examined patient prior to procedure and No changes to prior documentation PREOP DIAGNOSIS: Worsening angina PRIMARY INDICATION FOR PROCEDURE: Worsening angina PLANNED PROCEDURE: Operation Date: 05/18/23 10:00 Proposed Procedures p [facility] W/ W/O 54455 R07.9,I10,i73.9, I77.1(Left) - José Luis Sheridan M.D Possible percutaneous coronary intervention PATIENT REASSESSED PRIOR TO SEDATION, WITH NO CHANGE NOTED: Yes PHYSICAL EXAM: alert, oriented x 3, clear to auscultation bilaterally and regular rate & rhythm AIRWAY EVAL/ANESTHESIA PLAN: normal airway, ASA III, Local Anesthesia, Risks, benefits & alternatives of sedation and/or procedure discussed and Patient agrees to continue as planned ADDITIONAL INFORMATION: Moderate sedation
--- NOTE | 2023-05-18 11:01 | PC.NURSE ---
Received patient from concrete plant laborer. Pt drowsy, arouses to verbal stimulation. Breathing shallow, even, and non-labored. 02 sat 88% on room air. Pt placed on 2L NC. 02 sat on 2L 94%. Patient denies pain. Placed on monitoring specialist. TR band to right radial artery. No signs of bleeding or hematoma. Right radial pulse palpable. Verbal orders at bedside received by Dr. Sheridan for NS to run 100ml/hr X 12hr post procedure. Daughter at bedside.
--- NOTE | 2023-05-18 12:40 | PC.NURSE ---
TR band 1200 - 1 ml removed from right radial TR band. Site asymptomatic. Radial pulse palpable. 1215 - 2 ml removed from right radial TR band. Site asymptomatic. Radial pulse palpable. 1230 - 2 ml air removed from right radial TR band. Site asymptomatic. Radial pulse palpable.
--- NOTE | 2023-05-18 13:01 | PC.NURSE ---
Pt transferred to CSU room 112-1 . Report given to EVIE bright. Daughter at bedside.
--- NOTE | 2023-05-18 14:35 | PC.NURSE ---
Patient's blood pressure was taken and noted at 88/58 and again at 99/41. Dr Sheridan called and made aware. He said to monitor the patient and if she falls below 90/40, let him know. Nurse woke patient and she agnes slightly to 99/58.
[2023-05-18] MEDS: temazepam 15 mg Capsule PO (20:15)
[2023-05-18] MEDS: atorvastatin 40 mg Tablet PO (20:15)
[2023-05-19 03:29] VITALS: BP 116/56; PULSE 73; RESP 23; O2SAT 93
[2023-05-19 03:56] LABS: Basophils # 0.1 10^3/uL (0.0-0.1); Basophils % 0.6 %; Eosinophils # 0.2 10^3/uL (0.0-0.8); Eosinophils % 2.1 %; Hematocrit 37.3 % (37.0-47.0); Hemoglobin 11.4 g/dL (11.5-15.3); Lymphocytes # 2.4 10^3/uL (0.8-4.8); Lymphocytes % 24.4 %; Mean Corpuscular HGB Conc 30.6 g/dL (30.0-36.0); Mean Corpuscular Hemoglobin 28.6 pg (28.0-34.0); Mean Corpuscular Volume 93.7 fl (81-99); Mean Platelet Volume 10.1 fL (7.4-10.4); Monocytes # 0.7 10^3/uL (0.2-0.9); Monocytes % 6.9 %; Neutrophils # 6.42 10^3/uL (1.8-7.7); Neutrophils % 65.5 %; Nucleated Red Blood Cells % 0 %; Platelet Count 204 10^3/cmm (130-400); Red Blood Count 3.98 10^6/uL (4.1-5.3); Red Cell Distribution Width 12.6 % (12.1-15.1); White Blood Count 9.8 10^3/uL (4.0-10.0)
[2023-05-19 04:27] LABS: Blood Urea Nitrogen 14 mg/dL (8-23); Calcium 8.7 mg/dL (8.5-10.5); Carbon Dioxide 29 mmol/L (22-29); Chloride 103 mmol/L (98-107); Glomerular Filtration Rate 62.1 mL/min (90-130); Glucose 102 mg/dL (65-115); Osmolality Calculated 291 mOsm/kg (285-295); Sodium 140 mmol/L (136-145)
[2023-05-19 04:31] LABS: Anion Gap 12.3 (5-19); Potassium 4.3 mmol/L (3.5-5.1)
[2023-05-19 05:02] VITALS: PULSE 79
--- NOTE | 2023-05-19 07:35 | P.DS_ITS ---
Discharge Providers Date of Admission: May 18, 2023 Date of Discharge: May 19, 2023 Attending Provider at Discharge: José Luis Sheridan M.D Primary Care Provider: NIRALI Beck Reason for Visit Reason for Visit: I77.1 Brief History: 67-year-old woman with past medical history of smoking, significant PAD who has been having worsening chest pain symptoms and was brought for coronary angiogram as outpatient. Hospital Course Hospital Course Coronary angiogram demonstrated to moderate mid RCA stenosis that underwent IFR.iFR value of 0.9 was obtained that was nonischemic.Patient was observed overnight with IV hydration as renal function was worse than at baseline.After IV hydration today morning, creatinine is back to baseline with normal GFR. Patient is being discharged in a stable condition. Physical Exam Narrative: GENERAL: Patient is alert, awake and oriented x3. [] NECK: No jugular vein distension. [] HEENT: No cyanosis. No icterus. No pallor. [] HEART: Regular S1 and S2. No murmur, rub or gallop. [] LUNGS: Clear to auscultate bilaterally. [] CENTRAL NERVOUS SYSTEM: Grossly nonfocal. [] EXTREMITIES: Lower extremities with no edema bilaterally. Pulses palpable in the lower extremities, both dorsalis pedis and posterior tibial. [] Discharge Data Studies Completed and Pending Pending at discharge Category Date Time Status MANAGER OF PLANNING request for service Routine Exams 05/18/23 09:00 Taken Laboratory Results WBC 9.8 10^3/uL (4.0-10.0) 05/19/23 02:49 RBC 3.98 10^6/uL (4.1-5.3) L 05/19/23 02:49 Hgb 11.4 g/dL (11.5-15.3) L 05/19/23 02:49 Hct 37.3 % (37.0-47.0) 05/19/23 02:49 MCV 93.7 fl (81-99) 05/19/23 02:49 MCH 28.6 pg (28.0-34.0) 05/19/23 02:49 MCHC 30.6 g/dL (30.0-36.0) 05/19/23 02:49 RDW 12.6 % (12.1-15.1) 05/19/23 02:49 Plt Count 204 10^3/cmm (130-400) 05/19/23 02:49 MPV 10.1 fL (7.4-10.4) 05/19/23 02:49 Neut % (Auto) 65.5 % 05/19/23 02:49 Lymph % (Auto) 24.4 % 05/19/23 02:49 Evans % (Auto) 6.9 % 05/19/23 02:49 Eos % (Auto) 2.1 % 05/19/23 02:49 Baso % (Auto) 0.6 % 05/19/23 02:49 Neut # (Auto) 6.42 10^3/uL (1.8-7.7) 05/19/23 02:49 Lymph # (Auto) 2.4 10^3/uL (0.8-4.8) 05/19/23 02:49 Evans # (Auto) 0.7 10^3/uL (0.2-0.9) 05/19/23 02:49 Eos # (Auto) 0.2 10^3/uL (0.0-0.8) 05/19/23 02:49 Baso # (Auto) 0.1 10^3/uL (0.0-0.1) 05/19/23 02:49 Nucleated RBC % (auto) 0 % 05/19/23 02:49 Nucleated RBCs # 0.0 /100WBC 05/19/23 02:49 Sodium 140 mmol/L (136-145) 05/19/23 02:49 Potassium 4.3 mmol/L (3.5-5.1) 05/19/23 02:49 Chloride 103 mmol/L (98-107) 05/19/23 02:49 Carbon Dioxide 29 mmol/L (22-29) 05/19/23 02:49 Anion Gap 12.3 (5-19) 05/19/23 02:49 BUN 14 mg/dL (8-23) 05/19/23 02:49 Creatinine 0.9 mg/dL (0.5-0.9) 05/19/23 02:49 GFR Calculation 62.1 mL/min (90-130) L 05/19/23 02:49 Glucose 102 mg/dL (65-115) 05/19/23 02:49 Calculated Osmolality 291 mOsm/kg (285-295) 05/19/23 02:49 Calcium 8.7 mg/dL (8.5-10.5) 05/19/23 02:49 Vitals Last Vital Signs Temp 98.9 F 05/18/23 23:42 Pulse 79 05/19/23 05:02 Resp 23 H 05/19/23 03:29 BP 116/56 05/19/23 03:29 Pulse Ox 93 05/19/23 03:29 O2 Del Method Room Air 05/19/23 03:29 O2 Flow Rate 3 05/18/23 16:00 Discharge Plan Discharge Patient Disposition: Home Prescriptions: No Action (DME) oxygen-air delivery systems Device See Rx Instructions .ROUTE .MEDSUPPLY Qty: 1 Rx Instructions: As directed. 4L at h.s aspirin [Aspirin Childrens] 81 mg tablet,chewable 81 mg PO DAILY Qty: 90 0RF duloxetine 30 mg capsule,delayed release(DR/EC) 30 mg PO DAILY Qty: 30 0RF Rx Instructions: will start taking every other day (of current script) on 02/22 lorazepam [Ativan] 0.5 mg tablet 0.25 mg PO DAILY PRN (Reason: anxiety) Qty: 15 2RF Rx Instructions: Take half tablet daily as needed for severe anxiety budesonide 0.5 mg/2 mL suspension for nebulization 0.5 mg inhalation BID prazosin 1 mg capsule 1 mg PO .bedtime Qty: 30 6RF Rx Instructions: Take one capsule at bedtime nitroglycerin 0.4 mg tablet, sublingual 0.4 mg sublingual Q5M PRN (Reason: chest pain) Qty: 30 0RF Rx Instructions: do not exceed 3 doses per episode formoterol fumarate [Perforomist] 20 mcg/2 mL solution for nebulization 2 ml inhalation BID 90 Days Qty: 120 1RF (DME) OneTouch Ultra Test Strip See Rx Instructions .ROUTE .COMPLEX Qty: 100 0RF Dose Instruction: TEST BLOOD SUGAR ONCE EVERY DAY Rx Instructions: TEST BLOOD SUGAR ONCE EVERY DAY clopidogrel 75 mg tablet 75 mg PO DAILY Qty: 90 3RF valsartan 40 mg tablet 40 mg PO BID Qty: 180 3RF (DME) lancets [OneTouch Delica Plus Lancet] 33 gauge misc See Rx Instructions .ROUTE .COMPLEX Qty: 100 0RF Dose Instruction: USE TO TEST BLOOD SUGAR DAILY DIRECTED Rx Instructions: USE TO TEST BLOOD SUGAR DAILY DIRECTED bupropion HCl 75 mg tablet See Rx Instructions .ROUTE .COMPLEX Qty: 45 0RF Dose Instruction: TAKE 1 TABLET BY MOUTH EVERY OTHER DAY Rx Instructions: TAKE 1 TABLET BY MOUTH EVERY OTHER DAY amlodipine 10 mg tablet See Rx Instructions .ROUTE .COMPLEX Qty: 90 0RF Dose Instruction: TAKE 1 TABLET BY MOUTH DAILY Rx Instructions: TAKE 1 TABLET BY MOUTH DAILY atorvastatin 20 mg tablet 20 mg PO DAILY metoprolol tartrate 100 mg tablet 100 mg PO DAILY famotidine 40 mg tablet 20 mg PO DAILY Januvia 100 mg tablet 100 mg PO DAILY Trulicity 0.75 mg/0.5 mL pen injector 0.75 mg SUBCUT DIRECTED Discharge Orders: Discharge Order (Routine); Ordered 05/19/23 Ordered By: José Luis Sheridan Referrals: José Luis Sheridan M.D [Physician] - (Your Dr. Sheridan follow up appointment will be scheduled during your Kelly Monreal appointment. Thank you.) Kelly Monreal FNP [Nurse Practitioner] - 05/30/23 10:00 am Diet: Cardiac Patient Instructions: Heart Catheterization (GEN), Post Angiogram Home Care Instructions Discharge Date/Time: 05/19/23 08:50 Discharge Attestations Time Spent in Discharge Care*: less than 30 min Quality Metrics Clinical Quality Measures [ No reported AMI, CVA or VTE this stay] Coding Level of Care Code Acute Code for Chg Fwd Diagnoses
[2023-05-19 08:46] VITALS: BP 116/56
--- NOTE | 2023-05-19 08:49 | PC.NURSE ---
Discharge Note Patient discharged to home via POV accompanied by daughter. Discharge instructions reviewed with patient and/or automobile sales representative. Mobile pharmacy medications and/or prescriptions provided. Belongings/home medications returned. IV discontinued, post angio home care instructions provided.
== END 2023-05-19 08:50 | disposition home or self-care (01) ==
LOC: CCL 08:49 → CSU 13:03
PROVIDERS: PCP Registered Nurse; Visit Provider Internal Medicine
DX: I77.1 Stricture of artery (principal); Z87.891 Personal history of nicotine dependence; Z79.82 Long term (current) use of aspirin; Z79.02 Long term (current) use of antithrombotics/antiplatelets; I10 Essential (primary) hypertension
CPT/HCPCS: 36415; 80048; 85025; 93458; 93571; 96365; 96367; 99152; 99153; C1769; C1887; C1894; J1644; J2250; J3010; J3490; J7030; Q0163; Q9967

== ENCOUNTER → 2023-05-30 09:46 | Outpatient (BNVA) | payer MEDICARE, MEDICAID, SELFPAY | PROVIDERS: PCP Registered Nurse; Visit Provider Nurse Practitioner Family | DX: I25.10 Atherosclerotic heart disease of native coronary artery without angina pectoris (principal); F17.210 Nicotine dependence, cigarettes, uncomplicated | CPT/HCPCS: 36415; 80048; 99214 ==

== ENCOUNTER → 2023-09-13 09:44 | Outpatient (BNVA) | payer MEDICARE, MEDICAID, SELFPAY | PROVIDERS: PCP Registered Nurse; Visit Provider Registered Nurse | DX: Z12.2 Encounter for screening for malignant neoplasm of respiratory organs (principal); E11.9 Type 2 diabetes mellitus without complications; Z79.4 Long term (current) use of insulin; Z00.00 Encounter for general adult medical examination without abnormal findings | CPT/HCPCS: 80053; 80061; 83036; 85025 ==

== ENCOUNTER → 2023-09-19 13:30 | Outpatient (BNVA) | payer MEDICARE, MEDICAID, SELFPAY | PROVIDERS: PCP Registered Nurse; Visit Provider Internal Medicine | DX: I20.0 Unstable angina (principal); I73.9 Peripheral vascular disease, unspecified; I10 Essential (primary) hypertension; E11.9 Type 2 diabetes mellitus without complications; Z79.4 Long term (current) use of insulin; G47.33 Obstructive sleep apnea (adult) (pediatric); F17.210 Nicotine dependence, cigarettes, uncomplicated | CPT/HCPCS: 99214 ==

== ENCOUNTER 2023-09-27 11:53 | Outpatient (CLI) | payer MEDICARE, MEDICAID, SELFPAY ==
--- NOTE | 2023-09-27 12:30 | CT_ITS ---
WS: [id number] LDCT LUNG CANCER SCREENING TECHNIQUE: Noncontrast CT of the chest with coronal and sagittal reformatted images. CLINICAL INFORMATION: Z12.2 - Encounter for screening for malignant neoplasm of... COMPARISON: None. DLP: 79.20 mGy.cm DIvol: Mean CTDIvol: 1.80 (mGy) All CT scans at [facility] use at least one of these dose optimization techniques: automat ed exposure control; mA and/or kV adjustment per patient size (includes targeted exams where dose is matched to clinical indication); or iterative reconstruction. FINDINGS: Small nodule along the RIGHT fissure measuring 6 mm. No suspicious pulmonary parenchymal ab normalities Aortic calcification. No mediastinal or hilar lymphadenopathy. No axillary lymphadenopathy. Cholecyst ectomy clips. Normal GE junction. Adrenal glands are normal. Mild thoracic curve. Mild thoracic kypho sis. Lungs are well aerated. No acute pulmonary infiltrates. IMPRESSION: CT/CT lung screening [id number] LUNG-RADS: 2-Benign Appearance or Behavior FOLLOW UP: 12 Month: Continue annual screening with LDCT
--- NOTE | 2023-09-27 13:01 | MM_ITS ---
WS: [id number] BILATERAL 3D TOMOSYNTHESIS DIGITAL SCREENING MAMMOGRAPHY WITH CAD CLINICAL INFORMATION: SCREEN HISTORY: Screening mammogram. No current complaints. COMPARISON: 2019 TECHNIQUE: Bilateral CC and MLO views. FINDINGS: Scattered fibroglandular densities bilaterally. No suspicious focal mass, asymmetry, calcifications, or architectural distortion. No evidence of malignancy. A few tiny incidental punctate calcifications . IMPRESSION: MM/[place] [id number] BI-RADS: 2-Benign FOLLOW UP: 1 Year Follow-up Recommend return to annual screening mammography.
--- NOTE | 2023-09-27 13:30 | XR_ITS ---
WS: [id number] DEXA (DUAL ENERGY X-RAY ABSORPTIOMETRY) Bone mineral density was performed using a [employer] machine. HISTORY: M81.0 - Age-related osteoporosis without current patholog... COMPARISON: 09/27/2019 Lumbar spine BMD (L1-L4): 1.541 g/cm2 T score: 3.0 Z score: 4.0 Total hip BMD: Left: 1.039 g/cm2. T score: 0.2 Z score: 1.2 Right: 0.967 g/cm2. T score: -0.3 Z score: 0.7 10 year probability of a major osteoporotic fracture is 16.5%. Compared to the prior study from 09/27/2019. Lumbar spine bone mineral density has increased by 4.3%. Bilateral hips bone mineral density has decreased by 8.1%. IMPRESSION: NORMAL BONE MINERAL DENSITY based upon the WHO classification for females. Significant increase in bone mineral density within the lumbar spine. Significant decrease in bone mineral density within the hips.
== END 2023-09-27 11:54 | disposition home or self-care (01) ==
LOC: RAD 11:53
PROVIDERS: PCP Registered Nurse; Visit Provider Registered Nurse
DX: Z12.31 Encounter for screening mammogram for malignant neoplasm of breast (principal); Z12.2 Encounter for screening for malignant neoplasm of respiratory organs; F17.210 Nicotine dependence, cigarettes, uncomplicated; M81.0 Age-related osteoporosis without current pathological fracture
CPT/HCPCS: 71271; 77063; 77067; 77080

== ENCOUNTER 2023-11-01 15:51 | Emergency (ER) | payer MEDICARE, MEDICAID, SELFPAY ==
[2023-11-01 15:52] VITALS: BP 112/43; PULSE 69; RESP 17; TEMP 36.4; O2SAT 94
--- NOTE | 2023-11-01 15:58 | XRR_ITS ---
PROCEDURE INFORMATION: Exam: XR Chest Exam date and time: 11/01/2023 4:01 PM Age: 67 years old Clinical indication: Other: AMS TECHNIQUE: Imaging protocol: Radiologic exam of the chest. Views: 1 view. COMPARISON: CT lung screening [id number] 09/27/2023 12:22 PM FINDINGS: Lungs: Poor inspiration with poor visualization of the lung bases.. No consolidation. Pleural spaces: Unremarkable. No pleural effusion. No pneumothorax. Heart/Mediastinum: Unremarkable. No cardiomegaly. Bones/joints: Unremarkable. XR/XR chest 1V portable [id number] IMPRESSION: No acute findings. Suboptimal inspiration.
--- NOTE | 2023-11-01 15:58 | CTR_ITS ---
PROCEDURE INFORMATION: Exam: CT Head Without Contrast Exam date and time: 11/01/2023 5:09 PM Age: 67 years old Clinical indication: Altered mental status/memory loss; Additional info: AMS TECHNIQUE: Imaging protocol: Computed tomography of the head without contrast. Radiation optimization: All CT scans at this facility use at least one of these dose optimization techniques: automated exposure control; mA and/or kV adjustment per patient size (includes targeted exams where dose is matched to clinical indication); or iterative reconstruction. REPORTING DATA: Count of CT and Cardiac NM exams in prior 12 months: This patient has received [address] and 0 known cardiac nuclear medicine studies in the 12 months prior to the current study. COMPARISON: CT head wo con* [id number] 04/03/2019 2:45 PM RADIATION DOSE METRICS: Total DLP (mGy-cm): 1352 FINDINGS: Brain: No midline shift. Ventricles, cisterns, and sulci are normal. No mass, acute infarct, hemorrhage, or extraaxial fluid collection. Cerebral ventricles: No ventriculomegaly. Paranasal sinuses: Visualized sinuses are unremarkable. No fluid levels. Mastoid air cells: Visualized mastoid air cells are well aerated. Bones/joints: Unremarkable. No acute fracture. Soft tissues: Unremarkable. CT/CT head wo con* [id number] IMPRESSION: No acute intracranial abnormality.
--- NOTE | 2023-11-01 16:04 | ED_ITS ---
HPI - General Adult 2 General: Chief complaint: Altered Mental Status Stated complaint: AMS Time Seen by Provider: 11/01/23 15:53 Source: EMS Mode of arrival: EMS Limitations: altered mental status History of Present Illness: 67-year-old female who had taken THC Gum mies today at home she called her daughter at 1230 and daughter told EMS that she was not speaking correctly so she went and checked on her. States she is concerned she took too much THC gummy so she gave her CBD 500 mg thinking it would negate it and she became much more altered with EMS she is only responsive to painful stimuli she is somnolent here sleeping unable to arouse at this time Review of Systems 2 General: Reports: ROS unobtainable due to mental status PFSH ED 2 PFSH: Medical History Type 2 diabetes mellitus with polyneuropathy Coronary artery disease Insomnia Vitamin B12 deficiency Psychiatric care Type 2 diabetes mellitus Major depressive disorder, recurrent, in partial remission Chronic post-traumatic stress disorder Obstructive sleep apnea Nasal turbinate hypertrophy Deviated septum Chronic GERD Surgical History History of nasal surgery Family History Other CAD (coronary artery disease) Cancer Depression Diabetes Hypertension Stroke Social History Smoking and tobacco/nicotine status: current every day tobacco/nicotine user cigarettes Packs smoked per day: 1 Quit status (tobacco/nicotine): considering quitting Second hand smoke exposure: No Alcohol intake: never Substance/Drug Use: never Lives independently: Yes Household members: none Marital status: / Current occupational status: retired Current gender identity: Female Physical Exam 2 Const: COMMON NORMALS: negative for patient oriented x3 HENMT: COMMON NORMALS: normocephalic and atraumatic HEAD & SCALP: n ormocephalic and atraumatic Eye: COMMON NORMALS: Equal, round and reactive pupils present and EOMs intact bilaterally PUPIL: Yes Equal, round and reactive pupils present Neck/C-Spine: COMMON NORMALS: full ROM and supple Chest: COMMONS NORMALS: normal inspection of the chest and normal palpation of entire chest wall Resp: COMMON NORMALS: normal respiratory effort, No retractions, No use of accessory muscles and clear to auscultation bilaterally AUSCULTATION: clear to auscultation bilaterally Cardio: COMMON NORMALS: regular rate, regular rhythm and No murmurs present (Cardio) RATE: regular rate RHYTHM: regular rhythm GI: COMMON NORMALS: Normal to inspection, nondistended, normoactive bowel sounds present, Soft to palpation, non-tender and no masses PALPATION: Yes Soft to palpation Extremity: COMMON NORMALS: normal to inspection and full ROM Neuro: COMMON NORMALS: negative for patient oriented x3 Psych: COMMON NORMALS: negative for mental status grossly normal Skin: COMMON NORMALS: no rashes or lesions noted and no wounds GENERAL SKIN EXAM: no rashes or lesions noted Course 2 Vital Signs: Vital signs: Vital Signs Temperature 97.6 F 11/01/23 15:52 Pulse Rate 66 11/01/23 16:09 Respiratory Rate 17 11/01/23 15:52 Blood Pressure 140/58 11/01/23 17:09 Pulse Oximetry 98 11/01/23 17:09 Oxygen Delivery Me thod Nasal Cannula 11/01/23 17:09 Oxygen Flow Rate 3.5 11/01/23 17:09 [facility] - General Adult Medical Decision Making Patient presents here with originally altered mental status likely due to marijuana she is now awake and alert wanting to go home she is able to ambulate on her own answer questions appropriately blood work head CT are all normal no signs of stroke she is stable for discharge Medical Records I reviewed the patient's medical records. Lab Data I reviewed the patient's lab results. 11/01/23 16:53 11/01/23 16:53 Radiology Impressions Chest X-Ray 11/01/23 15:58 IMPRESSION: No acute findings. Suboptimal inspiration. Head CT 11/01/23 15:58 IMPRESSION: No acute intracranial abnormality. Laboratory Results WBC 14.34 10^3/uL (3.29-11.43) H 11/01/23 16:53 RBC 3.97 10^6/uL (3.85-5.65) 11/01/23 16:53 Hgb 11.70 g/dL (11.27-16.99) 11/01/23 16:53 Hct 37.2 % (36-47) 11/01/23 16:53 MCV 93.7 fl (85-98) 11/01/23 16:53 MCH 29.5 pg (27-33) 11/01/23 16:53 MCHC 31.5 g/dL (30-55) 11/01/23 16:53 RDW 12.9 % (12.1-15.1) 11/01/23 16:53 Plt Count 212 10^3/cmm (157-399) 11/01/23 16:53 MPV 10.0 fL (7.4-10.4) 11/01/23 16:53 Neut % (Auto) 92.1 % 11/01/23 16:53 Lymph % (Auto) 4.7 % 11/01/23 16:53 Mower % (Auto) 2.1 % 11/01/23 16:53 Eos % (Auto) 0.1 % 11/01/23 16:53 Baso % (Auto) 0.4 % 11/01/23 16:53 Neut # (Auto) 13.21 10^3/uL (1.8-7.7) H 11/01/23 16:53 Lymph # (Auto) 0.7 10^3/uL (0.8-4.8) L 11/01/23 16:53 Mower # (Auto) 0.3 10^3/uL (0.2-0.9) 11/01/23 16:53 Eos # (Auto) 0.0 10^3/uL (0.0-0.8) 11/01/23 16:53 Baso # (Auto) 0.1 10^3/uL (0.0-0.1) 11/01/23 16:53 Nucleated RBC % (auto) 0 % 11/01/23 16:53 Nucleated RBCs # 0.0 /100WBC 11/01/23 16:53 PT 13.70 SECONDS (12.1-14.9) 11/01/23 16:53 INR 1.02 (0.8-1.2) 11/01/23 16:53 Specimen Type Arterial 11/01/23 16:17 Sample Site Radial, left 11/01/23 16:17 ABG pH 7.30 (7.35-7.45) L 11/01/23 16:17 ABG pCO2 55.4 mmHg (35-45) H 11/01/23 16:17 ABG pO2 62.2 mmHg (80.0-100.0) L 11/01/23 16:17 ABG HCO3 27.0 mmol/L (22-26) H 11/01/23 16:17 ABG Base Excess -0.3 mmol/L (-2.0-2.0) 11/01/23 16:17 Alber Test Pos 11/01/23 16:17 Hematocrit 35.8 % (37-47) L 11/01/23 16:17 O2 Delivery Device Nc 11/01/23 16:17 O2 Liters/Min 3.5 % 11/01/23 16:17 Patent Examiner ID [place] 11/01/23 16:17 Sodium 140 mmol/L (136-145) 11/01/23 16:53 Potassium 5.2 mmol/L (3.5-5.1) H 11/01/23 16:53 Chloride 105 mmol/L (98-107) 11/01/23 16:53 Carbon Dioxide 28 mmol/L (22-29) 11/01/23 16:53 Anion Gap 12.2 (5-19) 11/01/23 16:53 BUN 21 mg/dL (8-23) 11/01/23 16:53 Creatinine 1.0 mg/dL (0.5-0.9) H 11/01/23 16:53 GFR Calculation 55.0 mL/min (90-130) L 11/01/23 16:53 Glucose 232 mg/dL (65-115) H 11/01/23 16:53 POC Glucose 237 mg/dL (70-110) H 11/01/23 16:34 Calculated Osmolality 300 mOsm/kg (285-295) H 11/01/23 16:53 Calcium 8.6 mg/dL (8.5-10.5) 11/01/23 16:53 Total Bilirubin 0.3 mg/dL (0.15-1.2) 11/01/23 16:53 AST 13 U/L (0-32) 11/01/23 16:53 ALT 13 U/L (0-33) 11/01/23 16:53 Alkaline Phosphatase 90 U/L (35-105) 11/01/23 16:53 Ammonia 21 umol/L (11-51) 11/01/23 16:53 Total Protein 6.8 g/dL (6.6-8.7) 11/01/23 16:53 Albumin 3.9 g/dL (3.5-5.2) 11/01/23 16:53 Globulin 2.9 g/dL (1.3-4.6) 11/01/23 16:53 TSH 1.60 uIU/mL (0.27-4.20) 11/01/23 16:53 Urine Color Dark yellow (Yellow) 11/01/23 17:51 Urine Appearance Clear (CLEAR) 11/01/23 17:51 Urine pH 5 (5-7) 11/01/23 17:51 Ur Specific [place] 1.025 (1.005-1.030) 11/01/23 17:51 Urine Protein Neg (Negative) 11/01/23 17:51 Urine Glucose (UA) Norm (Normal) 11/01/23 17:51 Urine Ketones Negative (Negative) 11/01/23 17:51 Urine Blood Neg (Negative) 11/01/23 17:51 Urine Nitrate Positive (Negative) H 11/01/23 17:51 Urine Bilirubin Neg (Negative) 11/01/23 17:51 Urine Urobilinogen Norm mg/dL (Negative) 11/01/23 17:51 Ur Leukocyte Esterase Negative (Negative) 11/01/23 17:51 Urine RBC 0-4 /hpf (0-2) H 11/01/23 17:51 Urine WBC 5-10 /hpf (0-5) H 11/01/23 17:51 Ur Squamous Epith Cells 0-4 /hpf (0-5) H 11/01/23 17:51 Amorphous Sediment Not Reportable 11/01/23 17:51 Urine Bacteria 3+ /hpf (NONE) H 11/01/23 17:51 Hyaline Casts 0-4 /lpf H 11/01/23 17:51 Urine Mucus 1+ /hpf 11/01/23 17:51 Urine Opiates Screen Negative ng/mL (Negative) 11/01/23 17:51 Ur Barbiturates Screen Negative ng/mL (Negative) 11/01/23 17:51 Ur Phencyclidine Scrn Negative ng/mL (Negative) 11/01/23 17:51 Ur Amphetamines Screen Negative ng/mL (Negative) 11/01/23 17:51 U Benzodiazepines Scrn Negative ng/mL (Negative) 11/01/23 17:51 Urine Cocaine Screen Negative ng/mL (Negative) 11/01/23 17:51 U Marijuana (THC) Screen Positive ng/mL (Negative) H 11/01/23 17:51 Ethyl Alcohol < 10 mg/dL (0-10) 11/01/23 16:53 All radiology interpretation(s) finalized by discharge Discharge Plan Discharge Patient Disposition: Home Clinical Impression: Altered mental status, Marijuana use Condition: Stable Prescriptions: No Action (DME) oxygen-air delivery systems Device See Rx Instructions .ROUTE .MEDSUPPLY Qty: 1 Rx Instructions: As directed. 4L at h.s aspirin [Aspirin Childrens] 81 mg tablet,chewable 81 mg PO DAILY Qty: 90 0RF lorazepam [Ativan] 0.5 mg tablet 0.25 mg PO DAILY PRN (Reason: anxiety) Qty: 15 2RF isosorbide mononitrate 30 mg tablet extended release 24 hr 30 mg PO BID Qty: 180 3RF (DME) OneTouch Ultra Test Strip See Rx Instructions .ROUTE .COMPLEX Qty: 100 0RF Dose Instruction: TEST BLOOD SUGAR ONCE EVERY DAY Rx Instructions: TEST BLOOD SUGAR ONCE EVERY DAY clopidogrel 75 mg tablet 75 mg PO DAILY Qty: 90 3RF valsartan 40 mg tablet 40 mg PO BID Qty: 180 3RF atorvastatin 20 mg tablet 20 mg PO DAILY Qty: 90 0RF famotidine 40 mg tablet 20 mg PO DAILY Qty: 90 0RF nitroglycerin 0.4 mg tablet, sublingual 0.4 mg sublingual Q5M PRN (Reason: chest pain) Qty: 30 2RF Rx Instructions: do not exceed 3 doses per episode (DME) lancets [OneTouch Delica Plus Lancet] 33 gauge misc See Rx Instructions .ROUTE .COMPLEX Qty: 100 0RF Dose Instruction: USE TO TEST BLOOD SUGAR DAILY DIRECTED Rx Instructions: USE TO TEST BLOOD SUGAR DAILY DIRECTED Trulicity 0.75 mg/0.5 mL pen injector See Rx Instructions .ROUTE .COMPLEX Qty: 2 0RF Dose Instruction: ADMINISTER 0.75 MG UNDER THE SKIN 1 TIME WEEKLY Rx Instructions: ADMINISTER 0.75 MG UNDER THE SKIN 1 TIME WEEKLY- on monday metoprolol tartrate 100 mg tablet 100 mg PO BID amlodipine 10 mg tablet 10 mg PO DAILY bupropion HCl 75 mg tablet 75 mg PO EVERY OTHER DAY Januvia 100 mg tablet 100 mg PO DAILY Discharge Orders: Discharge ED (Routine); Ordered 11/01/23 Ordered By: Dev Dunne Referrals: Francois Pizarro FNP [Primary Care Provider] - Discharge Diet: Advance as tolerated Discharge Activity: Resume usual activity Patient Instructions: Marijuana Abuse, Altered Mental Status (ED) Coding Level of Care Code ED Sales Promotion Manager for Mario Rodgers
[2023-11-01 16:09] VITALS: BP 98/48; PULSE 66; O2SAT 98
[2023-11-01 16:28] LABS: ABG PCO2 55.4 mmHg (35-45); Arterial Blood Gas Hematocrit 35.8 % (37-47); Base Excess ABG -0.3 mmol/L (-2.0-2.0); Blood Gas Allen Test Pos; Blood Gas LPM 3.5 %; Blood Gas Operator Identificat WALCI; Blood Gas Sample Site Radial, left; Blood Gas Sample Type Arterial; Oxygen Device NC; PO2 ABG 62.2 mmHg (80.0-100.0)
[2023-11-01 16:39] VITALS: BP 98/48; O2SAT 97
[2023-11-01 16:40] LABS: Glucose Point of Care 237 mg/dL (70-110)
[2023-11-01 17:01] LABS: Basophils # 0.1 10^3/uL (0.0-0.1); Basophils % 0.4 %; Eosinophils % 0.1 %; Hematocrit 37.2 % (36-47); Lymphocytes # 0.7 10^3/uL (0.8-4.8); Lymphocytes % 4.7 %; Mean Corpuscular HGB Conc 31.5 g/dL (30-55); Mean Corpuscular Hemoglobin 29.5 pg (27-33); Mean Corpuscular Volume 93.7 fl (85-98); Monocytes # 0.3 10^3/uL (0.2-0.9); Monocytes % 2.1 %; Neutrophils # 13.21 10^3/uL (1.8-7.7); Neutrophils % 92.1 %; Nucleated Red Blood Cells % 0 %; Platelet Count 212 10^3/cmm (157-399); Red Blood Count 3.97 10^6/uL (3.85-5.65); Red Cell Distribution Width 12.9 % (12.1-15.1); White Blood Count 14.34 10^3/uL (3.29-11.43)
[2023-11-01 17:09] VITALS: BP 140/58; O2SAT 98
[2023-11-01 17:12] LABS: INR 1.02 (0.8-1.2)
[2023-11-01 17:19] LABS: Ammonia 21 umol/L (11-51)
[2023-11-01 17:30] LABS: Alanine Aminotransferase 13 U/L (0-33); Albumin Level 3.9 g/dL (3.5-5.2); Alkaline Phosphatase 90 U/L (35-105); Anion Gap 12.2 (5-19); Aspartate Amino Transferase 13 U/L (0-32); Blood Urea Nitrogen 21 mg/dL (8-23); Calcium 8.6 mg/dL (8.5-10.5); Carbon Dioxide 28 mmol/L (22-29); Chloride 105 mmol/L (98-107); Globulin 2.9 g/dL (1.3-4.6); Glucose 232 mg/dL (65-115); Osmolality Calculated 300 mOsm/kg (285-295); Potassium 5.2 mmol/L (3.5-5.1); Sodium 140 mmol/L (136-145); Total Bilirubin 0.3 mg/dL (0.15-1.2); Total Protein 6.8 g/dL (6.6-8.7)
[2023-11-01] MEDS: sodium chloride 0.9% 1,000 ML 999 ML IV (17:32)
[2023-11-01 17:33] LABS: Alcohol Level < 10 mg/dL (0-10)
[2023-11-01 18:13] LABS: Amphetamines Screen Urine Negative (Negative); Barbiturates Screen Urine Negative (Negative); Benzodiazepines Screen Urine Negative (Negative); Cocaine Screen Urine Negative (Negative); Opiate Screen Urine Negative (Negative); PCP Screen Urine Negative (Negative); THC Screen Urine Positive (Negative)
[2023-11-01 18:15] LABS: Add Urine Microscopic? YES; Bilirubin Urine Neg (Negative); Blood Urine Neg (Negative); Glucose Urine UA Norm (Normal); Ketones Urine Negative (Negative); Leukocyte Esterase Urine Negative (Negative); Nitrate Urine Positive (Negative); Protein Urine Neg (Negative); Specific Gravity, Urine 1.025 (1.005-1.030); Urine Appearance Clear (CLEAR); Urine Color Dark Yellow (Yellow); Urobilinogen Urine Norm (Negative); pH Urine 5 (5-7)
[2023-11-01 18:26] LABS: Add Urine Culture? Yes; Bacteria Urine 3+ /hpf; Hyaline Casts Urine 0-4 /lpf; Mucus Urine 1+ /hpf; RBC Urine 0-4 /hpf (0-2); Squamous Epithelial Cell Urine 0-4 /hpf (0-5)
== END 2023-11-01 18:47 | disposition home or self-care (01) ==
PROVIDERS: Emergency Provider Emergency Medicine; PCP Registered Nurse
DX: R41.82 Altered mental status, unspecified (principal); F12.90 Cannabis use, unspecified, uncomplicated; Z79.02 Long term (current) use of antithrombotics/antiplatelets; Z79.82 Long term (current) use of aspirin; Z79.85 Long-term (current) use of injectable non-insulin antidiabetic drugs; F17.210 Nicotine dependence, cigarettes, uncomplicated; E11.42 Type 2 diabetes mellitus with diabetic polyneuropathy; I25.10 Atherosclerotic heart disease of native coronary artery without angina pectoris
CPT/HCPCS: 36415; 36416; 36600; 70450; 71045; 80053; 80306; 80307; 81001; 82140; 82803; 82962; 84443; 85025; 85610; 87077; 87086; 87186; 96360; 99285; J7030

== ENCOUNTER → 2023-11-20 08:22 | Outpatient (BNVA) | payer MEDICARE, MEDICAID, SELFPAY | PROVIDERS: PCP Registered Nurse; Visit Provider Registered Nurse | DX: N39.0 Urinary tract infection, site not specified (principal) | CPT/HCPCS: 87086 ==

== ENCOUNTER → 2024-03-19 15:14 | Outpatient (BNVA) | payer MEDICARE, MEDICAID, SELFPAY | PROVIDERS: PCP Registered Nurse; Visit Provider Internal Medicine | DX: I20.0 Unstable angina (principal); I73.9 Peripheral vascular disease, unspecified; I10 Essential (primary) hypertension; E11.9 Type 2 diabetes mellitus without complications; Z79.4 Long term (current) use of insulin; G47.33 Obstructive sleep apnea (adult) (pediatric); F17.210 Nicotine dependence, cigarettes, uncomplicated | CPT/HCPCS: 99214 ==

== ENCOUNTER → 2024-04-18 09:20 | Outpatient (BNVA) | payer MEDICARE, MEDICAID, SELFPAY | PROVIDERS: PCP Registered Nurse; Visit Provider Registered Nurse | DX: E11.9 Type 2 diabetes mellitus without complications (principal) | CPT/HCPCS: 80053; 80061; 82607; 83036; 85025 ==

== ENCOUNTER → 2024-07-31 09:40 | Outpatient (BNVA) | payer MEDICARE, MEDICAID, SELFPAY | PROVIDERS: PCP Registered Nurse; Visit Provider Registered Nurse | DX: E11.9 Type 2 diabetes mellitus without complications (principal); Z79.4 Long term (current) use of insulin; I10 Essential (primary) hypertension | CPT/HCPCS: 80053; 83036 ==

== ENCOUNTER → 2024-09-23 10:29 | Outpatient (BNVA) | payer MEDICARE, MEDICAID, SELFPAY | PROVIDERS: PCP Registered Nurse; Visit Provider Nurse Practitioner Family | DX: I25.118 Atherosclerotic heart disease of native coronary artery with other forms of angina pectoris (principal); I10 Essential (primary) hypertension; I73.9 Peripheral vascular disease, unspecified; G47.33 Obstructive sleep apnea (adult) (pediatric); F17.200 Nicotine dependence, unspecified, uncomplicated; E11.9 Type 2 diabetes mellitus without complications; J44.9 Chronic obstructive pulmonary disease, unspecified | CPT/HCPCS: 99214 ==

== ENCOUNTER → 2024-10-17 11:40 | Outpatient (BNVA) | payer MEDICARE, MEDICAID, SELFPAY | PROVIDERS: PCP Registered Nurse; Visit Provider Registered Nurse | DX: E11.9 Type 2 diabetes mellitus without complications (principal); Z79.4 Long term (current) use of insulin | CPT/HCPCS: 80048; 83036 ==

== ENCOUNTER 2024-10-23 11:40 | Outpatient (CLI) | payer MEDICARE, MEDICAID, SELFPAY ==
--- NOTE | 2024-10-23 11:40 | MM_ITS ---
WS: [id number] BILATERAL 3D TOMOSYNTHESIS DIGITAL SCREENING MAMMOGRAPHY WITH CAD CLINICAL INFORMATION: Z12.31 - Encounter for screening mammogram for malignant ... HISTORY: Screening mammogram. No current complaints. COMPARISON: 2022 TECHNIQUE: Bilateral CC and MLO views. FINDINGS: Scattered fibroglandular densities bilaterally. No suspicious focal mass, asymmetry, calcifications, or architectural distortion. No evidence of malignancy. Vascular calcification MM/MM scr BI tomosynthesis [id number] IMPRESSION: DENSITY: There are scattered areas of fibroglandular density. BI-RADS: 2 - Benign. FOLLOW UP: 1 Year Follow-up Recommend return to annual screening mammography.
== END 2024-10-23 11:41 | disposition home or self-care (01) ==
LOC: MOBLMAM 11:41
PROVIDERS: PCP Registered Nurse; Visit Provider Registered Nurse
DX: Z12.31 Encounter for screening mammogram for malignant neoplasm of breast (principal); R92.323 Mammographic fibroglandular density, bilateral breasts; R92.1 Mammographic calcification found on diagnostic imaging of breast
CPT/HCPCS: 77063; 77067

== ENCOUNTER 2024-10-31 08:47 | Outpatient (CLI) | payer MEDICARE, MEDICAID, SELFPAY ==
--- NOTE | 2024-10-31 09:00 | CT_ITS ---
WS: [id number] LDCT LUNG CANCER SCREENING TECHNIQUE: Noncontrast CT of the chest with coronal and sagittal reformatted images. CLINICAL INFORMATION: Z12.2 - Encounter for screening for malignant neoplasm of... COMPARISON: CT 2022 DLP: 79.00 mGy.cm DIvol: Mean CTDIvol: 1.90 (mGy) All CT scans at [facility] use at least one of these dose optimization techniques: automat ed exposure control; mA and/or kV adjustment per patient size (includes targeted exams where dose is matched to clinical indication); or iterative reconstruction. FINDINGS: Stable small RIGHT perifissural nodule measuring 6 mm. No new suspicious pulm parenchymal normalities . Aortic calcification. Coronary calcification. No mediastinal or hilar lymphadenopathy. No axillary ly mphadenopathy. Cholecystectomy clips. Normal GE junction. Adrenal glands are normal. Mild thoracic cu rve. Mild thoracic kyphosis. Cholecystectomy clips. Splenic artery calcification. CT/CT lung screening [id number] IMPRESSION: LUNG-RADS: 2-Benign Appearance or Behavior FOLLOW UP: 12 Month: Continue annual screening with LDCT
== END 2024-10-31 08:48 | disposition home or self-care (01) ==
LOC: RAD 08:48
PROVIDERS: PCP Registered Nurse; Visit Provider Registered Nurse
DX: Z12.2 Encounter for screening for malignant neoplasm of respiratory organs (principal); F17.210 Nicotine dependence, cigarettes, uncomplicated; R91.1 Solitary pulmonary nodule; I25.84 Coronary atherosclerosis due to calcified coronary lesion; Z90.49 Acquired absence of other specified parts of digestive tract; D73.89 Other diseases of spleen
CPT/HCPCS: 71271

== ENCOUNTER → 2024-11-20 10:04 | Outpatient (BNVA) | payer MEDICARE, MEDICAID, SELFPAY | PROVIDERS: PCP Registered Nurse; Visit Provider Registered Nurse | DX: N39.0 Urinary tract infection, site not specified (principal) | CPT/HCPCS: 81000; 87086 ==

== ENCOUNTER → 2024-11-28 13:50 | Outpatient (BNVA) | payer MEDICARE, MEDICAID, SELFPAY | PROVIDERS: PCP Registered Nurse; Visit Provider Registered Nurse | DX: N39.0 Urinary tract infection, site not specified (principal) | CPT/HCPCS: 81000; 87086 ==

== ENCOUNTER → 2025-01-15 09:49 | Outpatient (BNVA) | payer MEDICARE, MEDICAID, SELFPAY | PROVIDERS: PCP Registered Nurse; Visit Provider Registered Nurse | DX: E11.9 Type 2 diabetes mellitus without complications (principal); Z79.4 Long term (current) use of insulin | CPT/HCPCS: 80048; 83036 ==

== ENCOUNTER → 2025-01-22 10:07 | Outpatient (BNVA) | payer MEDICARE, MEDICAID, SELFPAY | PROVIDERS: PCP Registered Nurse; Visit Provider Surgery | DX: R13.10 Dysphagia, unspecified (principal) | CPT/HCPCS: 99204 ==

== ENCOUNTER 2025-02-13 06:49 | Day surgery (SDC) | payer MEDICARE, MEDICAID, SELFPAY ==
--- NOTE | 2025-02-13 06:10 | W.PM.OPSUD ---
Surgery/Procedure H&P Update DATE OF PROCEDURE: February 13, 2025 DATE H&P PERFORMED: 01/22/25 H&P UPDATE INFORMATION: I have reviewed H&P completed within last 30 days, I have examined patient prior to procedure, No changes to prior documentation, Changes to prior documentation as noted here and Risks and benefits of the procedure reviewed PLANNED PROCEDURE: Operation Date: 02/13/25 08:20 Proposed Procedures p EGD Dilation w/ Balloon 11609 R13.10(Not Applicable) - Eyad Giles MD
[2025-02-13 07:16] VITALS: BP 155/68; PULSE 74; RESP 16; TEMP 36.5; O2SAT 94
[2025-02-13 07:17] LABS: Glucose Point of Care 141 mg/dL (70-110)
[2025-02-13] MEDS: sodium chloride 0.9% 1,000 ML 15 ML IV (07:22)
--- NOTE | 2025-02-13 07:45 | ANES.PREANE2 ---
Pre-Anesthetic Assessment Height/Weight: Height 1.63 m Weight 78.018 kg Temp Pulse Resp BP Pulse Ox O2 Del Method 97.7 F 74 16 155/68 94 Room Air 02/13/25 07:16 02/13/25 07:16 02/13/25 07:16 02/13/25 07:16 02/13/25 07:16 02/13/25 07:16 Preop Diagnosis: Dysphagia Operation Date: 02/13/25 08:20 Proposed Procedures p EGD Dilation w/ Balloon [id number] R13.10(Not Applicable) - Eyad Giles MD Was Beta Rich taken within 24 hours: Yes Was Clonidine taken within 24 hours: N/A Last intake: Intake Last Liquid Date 02/13/25 Last Liquid Time 06:00 Last Solid Date 02/12/25 Last Solid Time 12:00 Social Tobacco and No alcohol Exam alert, oriented x 3, clear to auscultation bilaterally and regular rate & rhythm Airway Submandibular: within normal limits Cervical ROM: within normal limits Mallampati: Class II Dentition: false History/ROS No significant history except as noted and No significant complaints Pulmonary Chronic Obstructive Pulmonary Disease, Exertional Dyspnea and Sleep Apnea CV/HEM Hypertension and Peripheral Vascular Disease None reported Hepatic None reported GI None reported Metabolic Diabetes Mellitus Musc/skel Lower Back Pain and Osteoarthritis/DJD Neuropsych Anxiety Anesthetic Plan ASA status: 3 Anesthesia: Anesthesia Evaluation and MAC Risk of > 500 ml blood loss (7ml/kg in children): No Medications/Allergies Home Medications ?Medication ?Instructions ?Recorded ?Confirmed ?Last Taken ?Type oxygen-air delivery systems ##1 07/30/20 02/11/25 02/12/25 History aspirin 81 mg chewable tablet 81 mg PO DAILY #90 tabs 11/02/20 02/11/25 02/10/25 Rx (Aspirin Childrens) nitroglycerin 0.4 mg sublingual 0.4 mg sublingual Q5M PRN chest 09/06/23 02/11/25 02/12/25 Rx tablet pain #30 tabs flash glucose scanning reader #1 ea 08/06/24 02/11/25 02/12/25 Rx (FreeStyle Sarah 2 [place]) flash glucose sensor (FreeStyle #2 ea 08/06/24 02/11/25 02/12/25 Rx Sarah 2 Sensor kit) lancets 33 gauge (OneTouch Delica #100 ea 10/01/24 02/11/25 02/12/25 Rx Plus Lancet) clopidogrel 75 mg tablet 75 mg PO DAILY #90 tabs 10/20/24 02/11/25 02/04/25 Rx blood sugar diagnostic (OneTouch #100 strips 11/20/24 02/11/25 02/12/25 Rx Ultra Test strips) pen needle, diabetic 31 gauge x #100 ea 01/15/25 02/11/25 02/12/25 Rx 5/16 (Pen Needle) Portable Oxygen 3L #1 ea 01/16/25 02/11/25 02/12/25 Rx blood-glucose meter,continuous #1 ea 01/16/25 02/11/25 02/12/25 Rx (E[place] [employer]) flash glucose sensor #2 ea 01/16/25 02/11/25 02/12/25 Rx cilostazol 50 mg tablet 50 mg PO BID #180 tabs 01/20/25 02/11/25 02/12/25 Rx budesonide 0.5 mg/2 mL suspension 0.5 mg inhalation DAILY shortness 02/10/25 02/11/25 02/12/25 History for nebulization (Pulmicort) of breath dulaglutide 1.5 mg/0.5 mL 1.5 mg SUBCUT .QWEEKLY 02/10/25 02/11/25 02/12/25 History subcutaneous pen injector (Trulicity) formoterol fumarate 20 mcg/2 mL 2 ml inhalation BID shortness of 02/10/25 02/11/25 02/12/25 History solution for nebulization breath (Perforomist) insulin degludec 100 unit/mL (3 20 unit SUBCUT DAILY 02/10/25 02/11/25 02/12/25 History mL) subcutaneous pen (Tresiba FlexTouch U-100 insulin) valsartan 40 mg tablet 40 mg PO DAILY 02/10/25 02/11/25 02/12/25 History amlodipine 10 mg tablet 10 mg PO DAILY #90 tabs 02/11/25 02/13/25 02/12/25 Rx atorvastatin 20 mg tablet 20 mg PO DAILY #90 tabs 02/11/25 02/13/25 02/12/25 Rx bupropion HCl 75 mg tablet 75 mg PO .QOTHERDAY #45 tabs 02/11/25 02/13/25 02/12/25 Rx famotidine 40 mg tablet 20 mg (1/2 x 40 mg) PO DAILY #90 02/11/25 02/13/25 02/12/25 Rx tabs isosorbide mononitrate 30 mg 30 mg PO BID #180 tabs 02/11/25 02/13/25 02/12/25 Rx tablet,extended release 24 hr lorazepam 0.5 mg tablet (Ativan) 0.25 mg (1/2 x 0.5 mg) PO DAILY 02/11/25 02/13/25 02/12/25 Rx PRN anxiety #15 tabs metoprolol tartrate 100 mg tablet 100 mg PO BID #180 tabs 02/11/25 02/13/25 02/13/25 Rx sitagliptin phosphate 100 mg 100 mg PO DAILY #90 tabs 02/11/25 02/13/25 02/12/25 Rx tablet (Januvia) Allergies Allergy/AdvReac Type Severity Reaction Status Date / Time ibuprofen Allergy Unknown Vomiting Verified 02/10/25 09:36 Sulfa (Sulfonamide Allergy Unknown Vomiting Verified 02/10/25 09:36 Antibiotics) Current Medications Generic Name Dose Route Start Last Admin Trade Name Freq PRN Reason Stop Dose Admin Sodium Chloride 1,000 mls @ 15 mls/hr 02/13/25 06:54 02/13/25 07:22 Sodium Chloride 0.9% IV 02/14/25 06:53 15 mls/hr .Q24H PRN Administration COLONOSCOPY FLUIDS PFSH Anesthesia Medical History Anxiety, generalized Type 2 diabetes mellitus with polyneuropathy Coronary artery disease Insomnia Vitamin B12 deficiency Type 2 diabetes mellitus Major depressive disorder, recurrent, in partial remission Chronic post-traumatic stress disorder Obstructive sleep apnea Nasal turbinate hypertrophy Deviated septum Chronic GERD Surgical History History of nasal surgery Family History Other CAD (coronary artery disease) Cancer Depression Diabetes Hypertension Stroke Social History Smoking and tobacco/nicotine status: current every day tobacco/nicotine user cigarettes Packs smoked per day: 1 Quit status (tobacco/nicotine): considering quitting Second hand smoke exposure: No Alcohol intake: never Substance/Drug Use: never Lives independently: Yes Household members: none Marital status: / Current occupational status: retired Current gender identity: Female Data Anesthesia Cardiac Studies: No Data to Display
[2025-02-13 08:02] VITALS: BP 95/59; PULSE 77; RESP 20; TEMP 36.1; O2SAT 92
[2025-02-13 08:18] VITALS: BP 120/62; PULSE 71; RESP 18; O2SAT 97
--- NOTE | 2025-02-13 08:40 | ANE.PACU2 ---
Inpatient post-anesthesia follow up: Airway intact: Yes Vital signs: Temperature 97 F Pulse Rate 71 Respiratory Rate 18 Blood Pressure 120/62 Pulse Oximetry 97 Oxygen Delivery Me thod Room Air Oxygen Flow Rate Fraction of Inspir ed Oxygen Hydration adequate: Yes Nausea and vomiting: No Pain level: 1 Mental status: Baseline
== END 2025-02-13 08:42 | disposition home or self-care (01) ==
PROVIDERS: PCP Registered Nurse; Visit Provider Surgery
DX: K29.50 Unspecified chronic gastritis without bleeding (principal); K44.9 Diaphragmatic hernia without obstruction or gangrene; R13.10 Dysphagia, unspecified; I10 Essential (primary) hypertension; E11.51 Type 2 diabetes mellitus with diabetic peripheral angiopathy without gangrene; K21.9 Gastro-esophageal reflux disease without esophagitis; G47.33 Obstructive sleep apnea (adult) (pediatric); F17.210 Nicotine dependence, cigarettes, uncomplicated; E11.42 Type 2 diabetes mellitus with diabetic polyneuropathy; M19.90 Unspecified osteoarthritis, unspecified site; J44.9 Chronic obstructive pulmonary disease, unspecified; Z79.82 Long term (current) use of aspirin; Z79.02 Long term (current) use of antithrombotics/antiplatelets; Z79.899 Other long term (current) drug therapy; Z79.85 Long-term (current) use of injectable non-insulin antidiabetic drugs; Z79.4 Long term (current) use of insulin; Z88.2 Allergy status to sulfonamides; Z88.8 Allergy status to other drugs, medicaments and biological substances
CPT/HCPCS: 36416; 43239; 82962; 88305; 88342; J2704; J7030

== ENCOUNTER → 2025-03-04 10:30 | Outpatient (BNVA) | payer MEDICARE, MEDICAID, SELFPAY | PROVIDERS: PCP Registered Nurse; Visit Provider Surgery | DX: Z09 Encounter for follow-up examination after completed treatment for conditions other than malignant neoplasm (principal) | CPT/HCPCS: 99213 ==

== ENCOUNTER → 2025-03-24 13:40 | Outpatient (BNVA) | payer MEDICARE, MEDICAID, SELFPAY | PROVIDERS: PCP Registered Nurse; Visit Provider Internal Medicine | DX: I73.9 Peripheral vascular disease, unspecified (principal); I10 Essential (primary) hypertension; E11.9 Type 2 diabetes mellitus without complications; Z79.4 Long term (current) use of insulin; G47.33 Obstructive sleep apnea (adult) (pediatric); Z79.01 Long term (current) use of anticoagulants; Z79.82 Long term (current) use of aspirin; F17.210 Nicotine dependence, cigarettes, uncomplicated; M79.605 Pain in left leg; M79.604 Pain in right leg | CPT/HCPCS: 99214 ==

== ENCOUNTER 2025-03-27 08:14 | Outpatient (CLI) | payer MEDICARE, MEDICAID, SELFPAY ==
--- NOTE | 2025-03-27 09:00 | FL_ITS ---
WS: [id number] Exam: FL barium swallow modifd [id number] Date/Time of Exam: 03/27/2025 8:51 AM Reason For Exam: Fluoroscopy time: 3min [id number] minutes # of spot films: 0 Modified barium swallow test was performed in conjunction with the speech therapy service. Oral pharyngeal phase of swallowing was normal. The patient experienced minimal penetration into the laryngeal inlet when swallowing thin liquid barium. The patient tolerated pudding and solid barium mixture foodstuffs without penetration or aspiration. The patient ingested a barium tablet without diff iculty. FL/FL barium swallow modifd [id number] IMPRESSION: 1. Minimal penetration into the laryngeal inlet when swallowing thin liquid bar ium. 2. No aspiration. A separate report and recommendations will follow from the speech therapy servi ce.
== END 2025-03-27 08:15 | disposition home or self-care (01) ==
PROVIDERS: PCP Registered Nurse; Visit Provider Surgery
DX: R13.10 Dysphagia, unspecified (principal); R93.89 Abnormal findings on diagnostic imaging of other specified body structures
CPT/HCPCS: 74230; 92611

== ENCOUNTER 2025-04-02 10:13 | Outpatient (CLI) | payer MEDICARE, MEDICAID, SELFPAY ==
--- NOTE | 2025-04-02 11:00 | USR_ITS ---
PROCEDURE INFORMATION: Exam: US Duplex Bilateral Lower Extremity Arteries Exam date and time: 04/02/2025 10:48 AM Age: 69 years old Clinical indication: Pain; Leg, lower; Prior surgery; Surgery date: 6+ months; Surgery type: Bilateral atherectomy; Additional info: Bilat leg pain TECHNIQUE: Imaging protocol: Real-time ultrasound scan of the arteries of the bilateral lower extremities with 2-D tipton scale, color Doppler flow and spectral waveform analysis. Images documented and saved. COMPARISON: CT angio abd aorta runof [id number] 01/24/2022 11:46 AM FINDINGS: Right lower extremity: Severe atheromatous disease. Common iliac artery with sharp upstroke. Right common femoral artery possibly biphasic. Multiple areas of narrowing suggested within the superficial femoral artery with acceleration of velocities. Popliteal artery likely monophasic. Posterior tibial artery likely monophasic. Dorsalis pedis artery likely monophasic. Left lower extremity: Severe atheromatous disease. Left common iliac artery with sharp upstroke. Left common femoral artery likely biphasic. Superficial femoral artery monophasic. Popliteal artery monophasic. Left posterior tibial artery and dorsalis pedis arteries are monophasic . US/[place] [id number] IMPRESSION: Severe atheromatous disease with monophasic flow throughout much of the left lower extremity. Consider alternative form of imaging. Please reference CT angiogram dated 01-24-22 which demonstrates occlusion of the superficial femoral arteries bilaterally. Consider repeat CT angiogram. Has there been a prior bypass?
== END 2025-04-02 10:14 | disposition home or self-care (01) ==
PROVIDERS: PCP Registered Nurse; Visit Provider Internal Medicine
DX: I70.202 Unspecified atherosclerosis of native arteries of extremities, left leg (principal); I70.201 Unspecified atherosclerosis of native arteries of extremities, right leg
CPT/HCPCS: 93925

== ENCOUNTER 2025-04-23 08:35 | Outpatient (CLI) | payer MEDICARE, MEDICAID, SELFPAY ==
[2025-04-23] VITALS (11 sets, daily range): BP systolic 107–170; BP diastolic 43–80; PULSE 70–88; RESP 16–24; TEMP 36.2–36.8; O2SAT 91–95; BMI 30.5
[2025-04-23 09:08] LABS: Basophils # 0.1 10^3/uL (0.0-0.1); Basophils % 0.7 %; Eosinophils # 0.4 10^3/uL (0.0-0.8); Eosinophils % 3.3 %; Lymphocytes # 1.8 10^3/uL (0.8-4.8); Lymphocytes % 15.7 %; Mean Corpuscular HGB Conc 31.4 g/dL (30-55); Mean Corpuscular Volume 86.2 fl (85-98); Mean Platelet Volume 10.1 fL (7.4-10.4); Monocytes # 0.8 10^3/uL (0.2-0.9); Monocytes % 6.9 %; Neutrophils # 8.15 10^3/uL (1.8-7.7); Nucleated Red Blood Cells % 0 %; Platelet Count 254 10^3/cmm (157-399); Red Blood Count 4.29 10^6/uL (3.85-5.65); Red Cell Distribution Width 13.1 % (12.1-15.1); White Blood Count 11.17 10^3/uL (3.29-11.43)
[2025-04-23] MEDS: aspirin 325 mg Tablet PO (09:15)
[2025-04-23 09:56] LABS: Anion Gap 14.2 (5-19); Blood Urea Nitrogen 15 mg/dL (8-23); Calcium 9.2 mg/dL (8.5-10.5); Carbon Dioxide 27 mmol/L (22-29); Chloride 99 mmol/L (98-107); Creatinine Clr Calc Pharmacy 53.0421; Glucose 179 mg/dL (65-115); Osmolality Calculated 287 mOsm/kg (285-295); Potassium 4.2 mmol/L (3.5-5.1); Sodium 136 mmol/L (136-145)
--- NOTE | 2025-04-23 10:00 | XACV_ITS ---
Ht: 163 cm Wt: 81 kg BSA: 1.94 m2 Any Known Allergies: Ibuprofen Gender: Female : 1955 Exam Type: Invasive Peripheral Vascular Procedure(s): Procedure Description: Diagnostic procedure Procedure Description: Peripheral Cath Diagnostic Procedure Procedure Description: Abdominal aortic angiography Procedure Description: Lower extremities' angiography Procedure Description: Peripheral vascular Intervention Procedure Description: PV Balloon Procedure Description: PV Stent Procedure Description: Miscellaneous Procedure Description: ACT Exam Priority: Routine Abdominal Diagnostic Findings Distal abdominal aorta is patent. Lower Extremity Diagnostic Findings INDICATION: Severe bilateral lifestyle limiting claudication. Right lower extremity findings: Right common iliac arteries patent. Right external iliac artery is patent. Right internal iliac artery is patent. Right common femoral artery is patent. Right profunda artery is patent. Right SFA is ostially occluded and reconstitutes in mid to distal vessel via collaterals. Right popliteal artery is patent. Below the knee patient has multivessel runoff to the foot however below the knee picture is of limited quality.. Left lower extremity findings: Left common iliac artery is patent. The left external iliac artery is patent. Left common femoral artery is patent. Left profunda artery is patent. The left SFA is totally occluded and reconstitutes via collaterals from distal segment. Left popliteal artery is patent. Below the knee patient has three-vessel runoff to the foot. Left Mid-longitudinal Superficial Femoral Artery: 100% stenosis. Lower Extremity Interventional Findings Left Superficial Femoral Artery: 100% stenosis treated with AB [place] 35 OPERATING ROOM AIDE Catheter [id number], BARD 5FR Lutinox [id number] drug coated balloon, 6.0x150 Supera, Omnilink Elite 6.0x59, and AB [place] 35 OPERATING ROOM AIDE Catheter [id number]. Procedure detail: After diagnostic images were obtained, we switched short sheath to 45 cm long sheath. Using Glidewire and support catheter, we crossed totally occluded SFA and wire was placed in distal vessel. We dilated the SFA with 6.0x250 mm [place] balloon. This was followed by 6.0x150 mm drug-coated balloon. We placed a 6.0 x 150 mm Supera stent from proximal to distal SFA. Ostial SFA underwent stent placement with 6.0x59 Omnilink overlapping stent. Stents were postdilated by 6.0 x 200 mm [place] balloon. At this time final angiogram was performed that showed excellent stent expansion and with no residual stenosis. Glidewire was removed. 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 Left Superficial Femoral Artery was treated with three Balloon and two Stent. Recommendations Dual antiplatelet therapy with aspirin and plavix. Outpatient cardiology follow up in 2 weeks. Hemodynamic Data Phase:Rest AO : / ( 4.0 ) @ 11:10:00 AM 144.0 / 59.0 ( 94.0 ) @ 11:30:00 AM 139.0 / 61.0 ( 94.0 ) @ 11:36:00 AM 205.0 / 101.0 ( 144.0 ) @ 11:43:00 AM 170.0 / 111.0 ( 140.0 ) @ 11:44:00 AM 130.0 / 94.0 ( 113.0 ) @ 12:02:00 PM 139.0 / 61.0 ( 95.0 ) @ 12:35:00 PM Access Site Site: Right Femoral artery Sheath Size: 6 Fr Hemost... Method: Suture Hemost... Success: Successful Procedure Details Findings Procedure Consent Obtained. Pre-Procedure Time Out. Identified patient by full name and date of as verbalized by the patient/guarantor. Does the consent match the physician's order: Yes. Accurate & Complete Informed Consent: Yes. Inpatient/Outpatient History & Physical on Chart: Yes. If H&P is completed, is and addenduem needed: No; If yes, is the addendum complete: N/A. Visualize and Verify Site with Patient/Guarantor: N/A. Relevant Radiology Images available: Yes. Pre-op teaching completed and patient verbalized understanding. The risks, benefits, and alternatives of sedation and/or procedure were discussed by physician. The patient agrees to continue. Procedure started. Vital chart was stopped. PERRLA. Strong, equal hand group exercise manager bilaterally. Lungs clear x 5 lobes. IV Site on Arrival: 20 gauge in the left anticubital. IV Fluids: 0.9% NaCl at KVO. 0 mL infused prior to clinical lab specialist. Pre Procedural Pulses: bilateral dorsalis pedis was Doppled. Pre Procedural Pulses: bilateral posterior tibial was Doppled. Pre Procedural Pulses: bilateral radial was 1+. Oxygen started at 2liters/min via nasal canula. bilateral groins was prepped with chloroprep then draped in the usual sterile fashion. A 16Fr haynes catheter was inserted without resistance maintaining sterile technique. Bag to gravity with clear urine returning. Physician arrived. Physician scrubbed in. Immediate Pre-Procedure Time Out. Correct Patient: Yes; Correct Procedure: Yes; Correct Site: Yes; Correct Patient Position: Yes; Correct Supplies: Yes; Dried Flammable Prep: Yes; Blood Products Available: N/A;. Lidocaine 1% infiltrated to the right groin. Arterial access obtained with micropuncture set. Wire unable to advance. Wire and needle out. Ultrasound being used to obtain access. Arterial access obtained with micropuncture set. A 5FrFr UF catheter in over wire. Abdominal aortogram with runoff performed in AP @ 10 mL/sec for a total of 30 mL. Left common iliac selected and arteriogram with runoff performed @ 10 mL/sec for a total of 30 mL. Glidewire inserted. Catheter out OTW. The 6Fr short sheath exchanged for a 45cm Flexor sheath. Seeker inserted OTW and advanced to the Tibial Peroneal Trunk. Wire out. Contrast hand injected through the seeker catheter. Glidewire inserted. Seeker out OTW. Inflation number : 1 A AB [place] 35 OPERATING ROOM AIDE Catheter [id number] was prepped and advanced across the Superficial Femoral, Left , then inflated to 6 SARAHI for 1:32 seconds. Inflation number: 2 The AB [place] 35 OPERATING ROOM AIDE Catheter [id number] was reinflated across the Superficial Femoral, Left, to 6 SARAHI for 0:59 seconds. Balloon out over wire. Results checked. Inflation number : 3 A BARD 5FR Lutinox [id number] drug coated balloon was prepped and advanced across the Superficial Femoral, Left , then inflated to 7 SARAHI for 1:30 seconds. Inflation number: 4 The BARD 5FR Lutinox [id number] drug coated balloon was reinflated across the Superficial Femoral, Left, to 7 SARAHI for 0:29 seconds. Inflation number: 5 The BARD 5FR Lutinox [id number] drug coated balloon was reinflated across the Superficial Femoral, Left, to 7 SARAHI for 0:30 seconds. Balloon out over wire. Seeker inserted OTW. Glidewire removed. 300cm Runthrough wire inserted. Inflation Number : 6 A 6.0x150 Supera -Lot Number# _[id number] EXP: 08/12/2026 was prepped and advanced across the Superficial Femoral, Left. The stent was deployed. Stent deployment system out OTW. Results checked. Stent inserted over the wire to the superficial femoral. Intact stent out OTW. Seeker inserted OTW. Wire out. Glidewire inserted. Stent inserted over the wire to the superficial femoral. Inflation Number : 7 A Omnilink Elite 6.0x59 -Lot Number# _[id number] EXP: 07/13/2028 was prepped and advanced across the Superficial Femoral, Left. The stent was deployed at 11 SARAHI for 1:00 seconds. Stent balloon out over wire. Inflation number : 8 A AB [place] 35 OPERATING ROOM AIDE Catheter [id number] was prepped and advanced across the Superficial Femoral, Left , then inflated to 10 SARAHI for 0:36 seconds. Inflation number: 9 The AB [place] 35 OPERATING ROOM AIDE Catheter [id number] was reinflated across the Superficial Femoral, Left, to 10 SARAHI for 0:30 seconds. Balloon out over wire. Results checked. The long sheath exchanged for a short 6Fr sheath. ACT drawn. Results 246 seconds. Therapeutic limits - pre-heparin administration 90-150 seconds and monitoring heparin during a vascular procedure >250 seconds. A Right femoral angiogram was performed to determine safe placement of closure device. A Suture was successful obtaining hemostatsis at the Right Femoral artery insertion site. Arterial sheath flushed and connected to tranducer and pressure bag with heparinized saline. Post Procedure: Pulses reassessed and unchanged. PERRLA. Strong, equal hand group exercise manager bilaterally. No VTE prophylaxis required. Total IV fluids: 200 mL. Vital chart was stopped. Medication's Wasted: Lidocaine 1% = 10 mL. Medication's Wasted: Other = Fentanyl 50mcg Versed 1 mg. Medication's Wasted: Other = Hydralazine 10 mg. Medication's Wasted: Heparin = 2000 units. Post-op diagnosis: PAD. Complications: None. Estimated blood loss: 5mL-10mL. Responsiveness - Normal response to verbal stimuli; alert and oriented, PERRLA. Airway - Unaffected, no intervention required; spontaneous ventilation. Circulation: W/N/L, pulses unchanged. Nausea/Vomiting: No. Procedure completed. Patient transferred by bed to 1st floor. Procedure Medications Start: 10:10 AM Stop: 10:10 AM Medication: Versed Amount: 1 mg Route: I.V. Start: 10:10 AM Stop: 10:10 AM Medication: Fentanyl Amount: 50 mcg Route: I.V. Start: 10:35 AM Stop: 10:35 AM Medication: Versed Amount: 1 mg Route: I.V. Start: 10:35 AM Stop: 10:35 AM Medication: Fentanyl Amount: 50 mcg Route: I.V. Start: 10:36 AM Stop: 10:36 AM Medication: Heparin Amount: 6000 units Route: I.V. Start: 10:47 AM Stop: 10:47 AM Medication: Hydralazine Amount: 10 mg Start: 10:46 AM Stop: 10:46 AM Medication: Versed Amount: 1 mg Route: I.V. Start: 10:46 AM Stop: 10:46 AM Medication: Fentanyl Amount: 50 mcg Route: I.V. Start: 10:55 AM Stop: 10:55 AM Medication: Heparin Amount: 1000 units Route: I.V. Start: 10:58 AM Stop: 10:58 AM Medication: Zofran (ondansetron) Amount: 4 mg Route: I.V. Start: 11:03 AM Stop: 11:03 AM Medication: Narcan Amount: 0.4 mg Route: I.V. Start: 11:36 AM Stop: 11:36 AM Medication: Plavix Amount: 600 mg Route: P.O. I, the attending physician, have reviewed and verified all procedure medications. Yes, all medications given per verbal order History/Risk Factors Hypertension: Yes Dyslipidemia: No Peripheral Arterial Disease (PAD): Yes Obesity: No Renal Disease: No Tobacco Use: Current/Recent(w/in 1 year) Prior Interventions PCI: No CABG: No Valve Surgery: No Report Signatures Finalized by José Luis Sheridan MD on 04/26/2025 02:16 PM
--- NOTE | 2025-04-23 10:20 | W.PM.OPSUD ---
Surgery/Procedure H&P Update DATE OF PROCEDURE: April 23, 2025 DATE H&P PERFORMED: 03/24/25 H&P UPDATE INFORMATION: I have reviewed H&P completed within last 30 days, I have examined patient prior to procedure and No changes to prior documentation PREOP DIAGNOSIS: Severe lifestyle limiting claudication PRIMARY INDICATION FOR PROCEDURE: Severe lifestyle limiting claudication PLANNED PROCEDURE: Operation Date: 04/23/25 10:00 Proposed Procedures p Peripheral Diagnostic Periph Angio Bilateral(Bilateral) - José Luis Sheridan M.D Possible peripheral intervention PATIENT REASSESSED PRIOR TO SEDATION, WITH NO CHANGE NOTED: Yes PHYSICAL EXAM: alert, oriented x 3, clear to auscultation bilaterally and regular rate & rhythm AIRWAY EVAL/ANESTHESIA PLAN: normal airway, ASA III, Local Anesthesia, Risks, benefits & alternatives of sedation and/or procedure discussed and Patient agrees to continue as planned ADDITIONAL INFORMATION: Moderate sedation
--- NOTE | 2025-04-23 12:54 | PM.PROC ---
Procedure Note: Date of procedure: 04/23/25 Pre-procedure diagnosis: Severe lifestyle limiting claudication Post-procedure diagnosis: other (Total occlusion of bilateral SFA. Status post successful revascularization of left SFA with 2 stents.) Procedure: Bilateral SFA 100% occluded with reconstitution via collaterals of distal SFA. Status post successful revascularization of left SFA with 2 stents and balloon angioplasty. Dual antiplatelet therapy with aspirin and plavix Performing Provider: José Luis Sheridan Estimated blood loss (mL): 10 Complications: None Condition: stable Disposition: floor Coding Level of Care Code Acute Code for Mario Rodgers
[2025-04-23 13:43] LABS: Partial Thromboplastin Time 114.6 SECONDS (23.9-36.7)
[2025-04-23] MEDS: fentaNYL 50 mcg/mL INJ 2mL 25 MCG IVP (14:25)
--- NOTE | 2025-04-23 14:45 | P.PN_ITS ---
<Statement entered by José Luis Sheridan M.D - 04/25/25 13:18> Patient was cared for in conjunction with an advanced practice practitioner.? I reviewed the chart and all pertinent data including imaging, telemetry, and laboratory results.? I discussed the patient in detail with the advanced practice practitioner.? Please see?their note for progress note, testing results and agreed upon plan of care for the patient. Subjective 2 Subjective: Patient doing well status post stent to the left SFA. Vitals are stable. She does still implant site looks good with no bleeding. Vitals/I&O/Wt Last Vital Signs Temp 97.1 F L 04/23/25 12:28 Pulse 84 04/23/25 13:15 Resp 18 04/23/25 14:25 BP 128/43 04/23/25 13:15 Pulse Ox 94 04/23/25 13:15 O2 Del Method Room Air 04/23/25 12:28 04/22/25 04/23/25 04/23/25 22:59 06:59 14:59 Intake Total 240 / 240 Balance 240 / 240 Weight last 48 hrs Weight 178 lb Physical Exam 2 Narrative: General: No apparent distress, healthy appearing, well nourished HENMT: normoceophalic Respiratory: Normal respiratory effort, clear to auscultation bilaterally throughout all lung willis, no use of accessory muscles Cardio: No JVD, regular rate, regular rhythm, S1 S2 normal, no murmurs, peripheral pulses 2+ radial plalpated bilaterally Extremities: Full ROM, normal, normal capillary refill, no cyanosis or edema Neuro: Alert and oriented x4, no focal motor deficits Psych: Affect normal, mental status grossly normal Skin: No rashes or lesions noted, no wounds Data 04/24/25 02:59 04/24/25 02:59 A&P Assessment and plan (1) PAD (peripheral artery disease): Plan Continue current medications. Restart home medications tomorrow. Low dose sliding scale with accuchecks. Asa and Plavix tomorrow with possible discharge. PDMP PDMP Reviewed: Not Reviewed Attestations 2 Medical Necessity Statement*: Not expected to cross 2 midnights. Coding Level of Care Code Acute Code for [facility] Diagnoses PAD (peripheral artery disease) I73.9
[2025-04-23] MEDS: ondansetron 2 mg/ML SDV 2 mL 4 MG IVP (15:05)
[2025-04-23 15:44] LABS: Partial Thromboplastin Time 33.3 SECONDS (23.9-36.7)
[2025-04-23] MEDS: metoprolol tartrate 50 mg Tablet 100 MG PO (17:35)
[2025-04-24 00:14] VITALS: BP 122/52; PULSE 75; RESP 16; TEMP 36.7; O2SAT 93
[2025-04-24 03:45] LABS: Basophils # 0.1 10^3/uL (0.0-0.1); Basophils % 0.4 %; Eosinophils # 0.2 10^3/uL (0.0-0.8); Eosinophils % 1.4 %; Lymphocytes # 1.2 10^3/uL (0.8-4.8); Mean Corpuscular HGB Conc 31.5 g/dL (30-55); Mean Corpuscular Hemoglobin 27.5 pg (27-33); Mean Corpuscular Volume 87.4 fl (85-98); Mean Platelet Volume 9.8 fL (7.4-10.4); Monocytes # 0.9 10^3/uL (0.2-0.9); Monocytes % 7.3 %; Neutrophils # 9.51 10^3/uL (1.8-7.7); Neutrophils % 80.4 %; Nucleated Red Blood Cells % 0 %; Platelet Count 223 10^3/cmm (157-399); Red Blood Count 3.89 10^6/uL (3.85-5.65); Red Cell Distribution Width 13.2 % (12.1-15.1); White Blood Count 11.85 10^3/uL (3.29-11.43)
[2025-04-24 04:02] LABS: Anion Gap 13.9 (5-19); Blood Urea Nitrogen 14 mg/dL (8-23); Calcium 8.6 mg/dL (8.5-10.5); Carbon Dioxide 28 mmol/L (22-29); Chloride 102 mmol/L (98-107); Creatinine Clr Calc Pharmacy 66.3026; Glucose 168 mg/dL (65-115); Osmolality Calculated 294 mOsm/kg (285-295); Potassium 3.9 mmol/L (3.5-5.1); Sodium 140 mmol/L (136-145)
[2025-04-24 04:52] VITALS: BP 129/57; PULSE 90; RESP 17; TEMP 36.7; O2SAT 90
[2025-04-24 06:00] VITALS: PULSE 82
[2025-04-24] MEDS: aspirin 81 mg Chew Tablet PO (07:32)
[2025-04-24] MEDS: ATORVASTATIN 10 MG TABLET 20 MG PO (07:32)
[2025-04-24] MEDS: amlodipine 10 mg Tablet PO (07:32)
[2025-04-24] MEDS: clopidogrel 75 mg Tablet PO (07:32)
[2025-04-24] MEDS: metoprolol tartrate 50 mg Tablet 100 MG PO (07:32)
[2025-04-24] MEDS: sitagliptin 100 mg Tablet PO (07:32)
[2025-04-24] MEDS: budesonide 0.5 mg/2 mL Neb INHALATION (07:55)
[2025-04-24 07:58] VITALS: PULSE 86; RESP 18; O2SAT 91
[2025-04-24 08:04] VITALS: BP 143/83; PULSE 84; RESP 18; TEMP 36.6; O2SAT 92
--- NOTE | 2025-04-24 09:31 | PC.NURSE ---
patient discharged to home. Instruction provided regarding follow up needs, no medication changes and site care with restrictions. patient verbalized complete understanding. Patient taken by wheelchair to private vehicle.
--- NOTE | 2025-04-24 11:13 | P.DS_ITS ---
Discharge Providers Date of Admission: 04/23/2025 Date of Discharge: April 24, 2025 Attending Provider at Admission: Dr. Sheridan Attending Provider at Discharge: José Luis Sheridan M.D Primary Care Provider: NIRALI Beck Diagnoses at Discharge Discharge Diagnosis (1) PAD (peripheral artery disease): Status: Acute Reason for Visit Reason for Visit: I73.9 Hospital Course Hospital Course Patient was seen in the clinic and having worsening lower extremity discomfort with exertion. She is continuing to smoke however says that tomorrow is quit date. Blood pressure is controlled. She is compliant with medications. She underwent planned lower extremity angiogram without complications. Palpable pulses on exam. Physical Exam Narrative: General: No apparent distress, healthy appearing, well nourished HENMT: Right carotid bruit Respiratory: Normal respiratory effort, clear to auscultation bilaterally throughout all lung willis, no use of accessory muscles Cardio: No JVD, regular rate, regular rhythm, S1 S2 normal, no murmurs, peripheral pulses 2+ radial plalpated bilaterally, 2+ PT and DP on the left palpable, palpable DP on the right Extremities: Full ROM, normal, normal capillary refill, no cyanosis or edema Neuro: Alert and oriented x4, no focal motor deficits Psych: Affect normal, mental status grossly normal Skin: Right femme stick site clean dry intact no signs or symptoms of hematoma Discharge Data Studies Completed and Pending Pending at discharge Category Date Time Status CONCRETE SPREADER request for service Routine Exams 04/23/25 10:00 Taken Laboratory Results WBC 11.85 10^3/uL (3.29-11.43) H 04/24/25 02:59 RBC 3.89 10^6/uL (3.85-5.65) 04/24/25 02:59 Hgb 10.70 g/dL (11.27-16.99) L 04/24/25 02:59 Hct 34.0 % (36-47) L 04/24/25 02:59 MCV 87.4 fl (85-98) 04/24/25 02:59 MCH 27.5 pg (27-33) 04/24/25 02:59 MCHC 31.5 g/dL (30-55) 04/24/25 02:59 RDW 13.2 % (12.1-15.1) 04/24/25 02:59 Plt Count 223 10^3/cmm (157-399) 04/24/25 02:59 MPV 9.8 fL (7.4-10.4) 04/24/25 02:59 Neut % (Auto) 80.4 % 04/24/25 02:59 Lymph % (Auto) 10.0 % 04/24/25 02:59 [place] % (Auto) 7.3 % 04/24/25 02:59 Eos % (Auto) 1.4 % 04/24/25 02:59 Baso % (Auto) 0.4 % 04/24/25 02:59 Neut # (Auto) 9.51 10^3/uL (1.8-7.7) H 04/24/25 02:59 Lymph # (Auto) 1.2 10^3/uL (0.8-4.8) 04/24/25 02:59 [place] # (Auto) 0.9 10^3/uL (0.2-0.9) 04/24/25 02:59 Eos # (Auto) 0.2 10^3/uL (0.0-0.8) 04/24/25 02:59 Baso # (Auto) 0.1 10^3/uL (0.0-0.1) 04/24/25 02:59 Nucleated RBC % (auto) 0 % 04/24/25 02:59 Nucleated RBCs # 0.0 /100WBC 04/24/25 02:59 APTT 33.3 SECONDS (23.9-36.7) D 04/23/25 15:15 Sodium 140 mmol/L (136-145) 04/24/25 02:59 Potassium 3.9 mmol/L (3.5-5.1) 04/24/25 02:59 Chloride 102 mmol/L (98-107) 04/24/25 02:59 Carbon Dioxide 28 mmol/L (22-29) 04/24/25 02:59 Anion Gap 13.9 (5-19) 04/24/25 02:59 BUN 14 mg/dL (8-23) 04/24/25 02:59 Creatinine 0.8 mg/dL (0.5-0.9) 04/24/25 02:59 GFR Calculation Not Reportable 04/24/25 02:59 Glucose 168 mg/dL (65-115) H 04/24/25 02:59 Calculated Osmolality 294 mOsm/kg (285-295) 04/24/25 02:59 Calcium 8.6 mg/dL (8.5-10.5) 04/24/25 02:59 Procedures Performed Date of procedure: 04/23/25 Pre-procedure diagnosis: Severe lifestyle limiting claudication Post-procedure diagnosis: other (Total occlusion of bilateral SFA. Status post successful revascularization of left SFA with 2 stents.) Procedure: Bilateral SFA 100% occluded with reconstitution via collaterals of distal SFA. Status post successful revascularization of left SFA with 2 stents and balloon angioplasty. Dual antiplatelet therapy with aspirin and plavix Performing Provider: José Luis Sheridan Estimated blood loss (mL): 10 Complications: Vitals Last Vital Signs Temp 97.9 F 04/24/25 08:04 Pulse 84 04/24/25 08:04 Resp 18 04/24/25 08:04 BP 143/83 04/24/25 08:04 Pulse Ox 92 04/24/25 08:04 O2 Del Method Room Air 04/24/25 08:04 Discharge Plan Discharge Patient Disposition: Home Prescriptions: Continued (DME) oxygen-air delivery systems Device See Rx Instructions .ROUTE .MEDSUPPLY Qty: 1 Rx Instructions: As directed. 4L at h.s aspirin [Aspirin Childrens] 81 mg tablet,chewable 81 mg PO DAILY Qty: 90 0RF (DME) pen needle, diabetic [Pen Needle] 31 gauge x 5/16 needle See Rx Instructions .MEDSUPPLY Qty: 100 12RF Rx Instructions: Use as directed for insulin administration (DME) Dexcom G6 File Keeper Misc See Rx Instructions .MEDSUPPLY Qty: 1 0RF Rx Instructions: Use as directed for checking blood sugar (DME) flash glucose sensor Kit See Rx Instructions .MEDSUPPLY Qty: 2 12RF Rx Instructions: Change every 14 days; Use as directed to check blood sugar (DME) Portable Oxygen 3L See Rx Instructions .Route .MEDSUPPLY Qty: 1 0RF Rx Instructions: As directed (DME) FreeStyle Sarah 2 [place] Misc See Rx Instructions .MEDSUPPLY Qty: 1 0RF Rx Instructions: Use as directed to check blood sugar (DME) FreeStyle Sarah 2 Sensor Kit See Rx Instructions .MEDSUPPLY Qty: 2 11RF Rx Instructions: Change every 14 days; Use as directed to check blood sugar Trulicity 3 mg/0.5 mL pen injector 0.75 mg SUBCUT Q7D bupropion HCl 75 mg tablet 75 mg PO .QOTHERDAY Qty: 45 0RF Rx Instructions: TAKE 1 TABLET BY MOUTH EVERY OTHER DAY amlodipine 10 mg tablet 10 mg PO DAILY Qty: 90 0RF Rx Instructions: TAKE 1 TABLET BY MOUTH DAILY isosorbide mononitrate 30 mg tablet extended release 24 hr 30 mg PO BID Qty: 180 0RF famotidine 40 mg tablet 20 mg PO DAILY Qty: 90 0RF Rx Instructions: TAKE 1/2 TABLET BY MOUTH DAILY Januvia 100 mg tablet 100 mg PO DAILY Qty: 90 0RF Rx Instructions: TAKE 1 TABLET BY MOUTH DAILY atorvastatin 20 mg tablet 20 mg PO DAILY Qty: 90 0RF Rx Instructions: TAKE 1 TABLET BY MOUTH DAILY metoprolol tartrate 100 mg tablet 100 mg PO BID Qty: 180 0RF Rx Instructions: TAKE 1 TABLET BY MOUTH TWICE DAILY lorazepam [Ativan] 0.5 mg tablet 0.25 mg PO DAILY PRN (Reason: anxiety) Qty: 15 1RF nitroglycerin 0.4 mg tablet, sublingual 0.4 mg sublingual Q5M PRN (Reason: chest pain) Qty: 30 2RF Rx Instructions: do not exceed 3 doses per episode (DME) lancets [OneTouch Delica Plus Lancet] 33 gauge misc See Rx Instructions .ROUTE .COMPLEX Qty: 100 0RF Dose Instruction: USE TO TEST BLOOD SUGAR DAILY DIRECTED Rx Instructions: USE TO TEST BLOOD SUGAR DAILY DIRECTED cilostazol 50 mg tablet 50 mg PO BID Qty: 180 3RF (DME) OneTouch Ultra Test Strip See Rx Instructions .ROUTE .COMPLEX Qty: 100 0RF Dose Instruction: TEST BLOOD SUGAR ONCE EVERY DAY Rx Instructions: TEST BLOOD SUGAR ONCE EVERY DAY clopidogrel 75 mg tablet 75 mg PO DAILY Qty: 90 3RF pantoprazole 40 mg tablet,delayed release (DR/EC) See Rx Instructions .ROUTE .COMPLEX Qty: 30 5RF Dose Instruction: Take 1 tablet by mouth once daily Rx Instructions: Take 1 tablet by mouth once daily budesonide [Pulmicort] 0.5 mg/2 mL suspension for nebulization 0.5 mg inhalation DAILY valsartan 40 mg tablet 40 mg PO DAILY Rx Instructions: TAKE 1 TABLET BY MOUTH TWICE DAILY formoterol fumarate [Perforomist] 20 mcg/2 mL solution for nebulization 2 ml inhalation BID insulin degludec [Tresiba FlexTouch U-100] 100 unit/mL (3 mL) insulin pen 20 unit SUBCUT DAILY Discharge Orders: Discharge Order (Routine); Ordered 04/24/25 Ordered By: Lorrie Guaman Other Ambulatory Orders: CV carotid duplex BI* [id number] (Routine) Timeframe: 2 Weeks Facility: [facility] - Location: Radiology Art Dar[facility] Ordered By: Lorrie Gumaan Referrals: Francois Pizarro FNP [Primary Care Provider, Family Practice] - 04/29/25 10:00 am Kelly Monreal FNP [Nurse Practitioner, Cardiology] - 05/05/25 4:00 pm Diet: Advance as tolerated Activity: Increase activity as tolerated and Limit activity as instructed Patient Instructions: Coronary Artery Disease (DC), Peripheral Vascular Stent Placement (DC), Peripheral Artery Disease (DC), Post Angiogram Home Care Instructions Activity Restrictions/Additional Instructions: Discussed with patient no heavy lifting more than a gallon of milk as well as going up or down steps for 3 days. No driving for 3 days. Monitor for and report signs or symptoms of bleeding. Monitor for and report s/s of infection such as fever 101 or greater, swelling, redness or pain to the groin. Patient had stent in the left SFAx2 with success. Right SFA is known to be occluded. If patient has worsening claudication of the right lower extremity, may consider revascularization of that side in the future as well. She did have a carotid bruit on exam, thus carotid US will be done on an outpatient basis. Print Language: Vietnamese Discharge Date/Time: 04/24/25 09:33 Discharge Attestations Time Spent in Discharge Care*: less than 30 min Quality Metrics Clinical Quality Measures [ No reported AMI, CVA or VTE this stay] Coding Level of Care Code Acute Code for Chg Fwd Diagnoses PAD (peripheral artery disease) I73.9
== END 2025-04-24 09:33 | disposition home or self-care (01) ==
LOC: CCL 08:40 → CSU 12:00
PROVIDERS: Nurse Practitioner Family; PCP Registered Nurse; Visit Provider Internal Medicine
DX: I70.213 Atherosclerosis of native arteries of extremities with intermittent claudication, bilateral legs (principal); I70.92 Chronic total occlusion of artery of the extremities; I10 Essential (primary) hypertension; Z79.82 Long term (current) use of aspirin; Z99.81 Dependence on supplemental oxygen; K21.9 Gastro-esophageal reflux disease without esophagitis; E11.42 Type 2 diabetes mellitus with diabetic polyneuropathy; Z79.4 Long term (current) use of insulin; I25.10 Atherosclerotic heart disease of native coronary artery without angina pectoris; G47.33 Obstructive sleep apnea (adult) (pediatric); F41.9 Anxiety disorder, unspecified; F43.12 Post-traumatic stress disorder, chronic; F17.210 Nicotine dependence, cigarettes, uncomplicated
CPT/HCPCS: 36415; 37226; 75625; 75716; 80048; 85025; 85347; 85730; 94640; 96365; 96374; 96375; 96376; 99152; 99153; C1725; C1760; C1769; C1876; C1887; C1894; C2623; G0269; J0360; J1644; J2250; J2310; J2405; J3010; J7030; J7626; J9999; Q0163; Q9967

== ENCOUNTER → 2025-04-30 10:37 | Outpatient (BNVA) | payer MEDICARE, MEDICAID, SELFPAY | PROVIDERS: PCP Registered Nurse; Visit Provider Registered Nurse | DX: R39.9 Unspecified symptoms and signs involving the genitourinary system (principal) | CPT/HCPCS: 81000 ==

== ENCOUNTER 2025-05-02 13:35 | Outpatient (CLI) | payer MEDICARE, MEDICAID, SELFPAY ==
--- NOTE | 2025-05-02 14:15 | USCV_ITS ---
Samanta Null Age: 69 Gender: F : 1955 Exam Date: 05/02/2025 14:23 Ordering Phys: Lorrie Guaman NP Technologist: LIVIA Exam Location: [facility] Indication: stenosis Risk Factors: Previous Vascular Surgery: Right Brachial BP: / Left Brachial BP: / Right Left Velocity (cm/s) Spectral Plaque Velocity (cm/s) Spectral Plaque Syst/Diast Broadening Syst/Diast Broadening 62.10/ 11.50 Prox CCA 58.50 / 12.10 59.70/ 12.30 Mid CCA 67.00 / 17.10 67.10/ 20.80 Distal CCA 66.20 / 18.50 65.40/ 25.10 Prox ICA 62.40 / 24.10 93.80/ 33.00 Mid ICA 80.10 / 26.20 92.20/ 26.60 Distal ICA 68.40 / 20.90 104.90 ECA 103.30 1.40 ICA/CCA 1.20 Antegrade Vertebral Antegrade 52.20/ 15.40 cm/s 51.50/ 14.70 cm/s Tri Subclavian Tri 92.20 135.0 0 CONCLUSIONS Right ICA stenosis <50%. Moderate atheromatous plaque right carotid bulb/ICA. Left ICA stenosis <50%. Moderate atheromatous plaque left carotid bulb/ICA. Normal antegrade Doppler flow noted in the right vertebral artery. Normal antegrade Doppler flow noted in the left vertebral artery. Saeed Davila MD (Electronically Signed) Final Date: 02 May 2025 15:23 S
== END 2025-05-02 13:36 | disposition home or self-care (01) ==
PROVIDERS: PCP Registered Nurse; Visit Provider Nurse Practitioner Family
DX: I65.23 Occlusion and stenosis of bilateral carotid arteries (principal)
CPT/HCPCS: 93880

== ENCOUNTER → 2025-05-05 15:30 | Outpatient (BNVA) | payer MEDICARE, MEDICAID, SELFPAY | PROVIDERS: PCP Registered Nurse; Visit Provider Nurse Practitioner Family | DX: I70.203 Unspecified atherosclerosis of native arteries of extremities, bilateral legs (principal); F17.210 Nicotine dependence, cigarettes, uncomplicated; Z98.62 Peripheral vascular angioplasty status; M79.89 Other specified soft tissue disorders | CPT/HCPCS: 36415; 80048; 99214 ==

== ENCOUNTER 2025-06-06 08:52 | Outpatient (CLI) | payer MEDICARE, MEDICAID, SELFPAY ==
[2025-06-06] VITALS (43 sets, daily range): BP systolic 96–139; BP diastolic 51–76; PULSE 0–87; RESP 16–23; TEMP 36.6–36.8; O2SAT 85–96; BMI 30.5
[2025-06-06 09:21] LABS: Hematocrit 40.6 % (36-47); Hemoglobin 12.50 g/dL (11.27-16.99); Mean Corpuscular HGB Conc 30.8 g/dL (30-55); Mean Corpuscular Hemoglobin 26.3 pg (27-33); Mean Corpuscular Volume 85.3 fl (85-98); Nucleated Red Blood Cells % 0 %; Platelet Count 298 10^3/cmm (157-399); Red Blood Count 4.76 10^6/uL (3.85-5.65); White Blood Count 13.30 10^3/uL (3.29-11.43)
[2025-06-06 09:38] LABS: Anion Gap 16.0 (5-19); Blood Urea Nitrogen 20 mg/dL (8-23); Calcium 9.6 mg/dL (8.5-10.5); Carbon Dioxide 26 mmol/L (22-29); Chloride 101 mmol/L (98-107); Glucose 169 mg/dL (65-115); Osmolality Calculated 295 mOsm/kg (285-295); Potassium 4.0 mmol/L (3.5-5.1); Sodium 139 mmol/L (136-145)
--- NOTE | 2025-06-06 10:00 | XACV_ITS ---
Ht: 163 cm Wt: 81 kg BSA: 1.94 m2 Any Known Allergies: Ibuprofen Gender: Female : 1955 Exam Type: Invasive Peripheral Vascular Procedure(s): Procedure Description: Diagnostic procedure Procedure Description: Peripheral Cath Diagnostic Procedure Procedure Description: Lower extremities' angiography Procedure Description: Peripheral vascular Intervention Procedure Description: PV Balloon Procedure Description: Miscellaneous Procedure Description: ACT Exam Priority: Routine Abdominal Diagnostic Findings Distal abdominal aorta is patent. Lower Extremity Diagnostic Findings INDICATION: Severe lifestyle limiting claudication of right lower extremity. RIght lower extremity findings:Right common iliac artery is patent. Right external iliac artery is patent. Right internal iliac artery is patent. Right common femoral artery is patent. Right profunda artery is patent. Right SFA is ostially occluded 100%. Reconstitutes in the distal vessel via collaterals. Right popliteal artery is patent. Below the knee patient has 3 vessel run off with slow flow. . Right Mid-longitudinal Superficial Femoral Artery: 100% stenosis. Lower Extremity Interventional Findings Procedure detail: After diagnostic images were obtained, we crossed totally occluded right SFA with a Glidewire and seeker support catheter. We dilated the SFA with 6.0 x 250 mm [place] balloon. We then used 6.0 x 150 mm drug-coated Lutonix balloon to treat the ostial SFA and distal SFA. At this time final angiogram was performed that showed excellent SFA extension and no significant stenosis. Three-vessel runoff to the foot with slow flow. Glidewire was removed. Patient with Single Needle Operator in this location.. Right longitudinal Superficial Femoral Artery: 100% stenosis treated with AB [place] 35 RESTAURANT LINE SERVER Catheter [id number] and BARD 5FR Lutinox [id number] drug coated balloon. Conclusions Severe right peripheral artery disease with total occlusion of ostial to distal SFA s/p successful revascularization with balloon angioplasty. Right Mid-longitudinal Superficial Femoral Artery was treated with two Balloon. Recommendations Dual antiplatelet therapy with aspirin and plavix. Outpatient cardiology follow up in 2 weeks. Hemodynamic Data Phase:Rest AO : 82.0 / 57.0 ( 70.0 ) @ 12:17:00 PM 86.0 / 52.0 ( 69.0 ) @ 12:47:00 PM Access Site Site: Left Femoral artery Sheath Size: 6 Fr Hemost... Method: Suture Hemost... Success: Successful Procedure Details Findings Pre-Procedure Time Out. Identified patient by full name and date of as verbalized by the patient/guarantor. Does the consent match the physician's order: Yes. Accurate & Complete Informed Consent: Yes. Inpatient/Outpatient History & Physical on Chart: Yes. If H&P is completed, is and addenduem needed: No; If yes, is the addendum complete: N/A. Visualize and Verify Site with Patient/Guarantor: N/A. Relevant Radiology Images available: Yes. Pre-op teaching completed and patient verbalized understanding. The risks, benefits, and alternatives of sedation and/or procedure were discussed by physician. The patient agrees to continue. Procedure started. PERRLA. Strong, equal hand leather flesher bilaterally. Lungs clear x 5 lobes. IV Site on Arrival: 20 gauge in the left anticubital. Physician arrived. IV Fluids: 0.9% NaCl at KVO. 0 mL infused prior to laboratory machinist. Pre Procedural Pulses: bilateral dorsalis pedis was Doppled. Pre Procedural Pulses: bilateral posterior tibial was Doppled. Oxygen started at 2liters/min via nasal canula. bilateral groins was prepped with chloroprep then draped in the usual sterile fashion. Baseline sample Acquired. HR: 76 BPM. Lidocaine 1% infiltrated to the left groin. Arterial access obtained with micropuncture set. A 5FrFr UF catheter in over wire. Abdominal aortogram performed in AP @ 10 mL/sec for a total of 30 mL. Glidewire inserted through the catheter. Catheter out OTW. Short sheath exchanged for a 45cm Flexor sheath. Seeker inserted OTW. Wire out. Contrast hand injected through the catheter. DSA peformed of the right lower leg. Glidewire inserted. Seeker removed OTW. Balloon inserted over the wire to the superficial femoral. Inflation number : 1 A AB [place] 35 RESTAURANT LINE SERVER Catheter [id number] was prepped and advanced across the Superficial Femoral, Right , then inflated to 6 SARAHI for 1:30 seconds. Inflation number: 2 The AB [place] 35 RESTAURANT LINE SERVER Catheter [id number] was reinflated across the Superficial Femoral, Right, to 6 SARAHI for 1:30 seconds. Balloon out over wire. Results checked. Results checked. DSA angiogram performed. Inflation number : 3 A BARD 5FR Lutinox [id number] drug coated balloon was prepped and advanced across the Superficial Femoral, Right , then inflated to 7 SARAHI for 2:02 seconds. Inflation number: 4 The BARD 5FR Lutinox [id number] drug coated balloon was reinflated across the Superficial Femoral, Right, to 7 SARAHI for 0:59 seconds. Balloon out over wire. Results checked. ACT drawn. Results 276 seconds. Therapeutic limits - pre-heparin administration 90-150 seconds and monitoring heparin during a vascular procedure >250 seconds. The long Flexor sheath exchanged for a short 6Fr sheath. A Left femoral angiogram was performed to determine safe placement of closure device. A Suture was successful obtaining hemostatsis at the Left Femoral artery insertion site. Post Procedure: Pulses reassessed and unchanged. PERRLA. Strong, equal hand leather flesher bilaterally. No VTE prophylaxis required. Medication's Wasted: Nitro = 49.7 mcg. Total IV fluids: 450 mL. Post-op diagnosis: RESTAURANT LINE SERVER Right SFA. Complications: None. Estimated blood loss: 5mL-10mL. Responsiveness - Normal response to verbal stimuli; alert and oriented, PERRLA. Airway - Unaffected, no intervention required; spontaneous ventilation. Circulation: W/N/L, pulses unchanged. Nausea/Vomiting: No. Vital chart was stopped. Procedure completed. Patient transferred by bed to 1st floor. Procedure Medications Start: 10:47 AM Stop: 10:47 AM Medication: Versed Amount: 1 mg Route: I.V. Start: 10:47 AM Stop: 10:47 AM Medication: Fentanyl Amount: 50 mcg Route: I.V. Start: 10:53 AM Stop: 10:53 AM Medication: Versed Amount: 1 mg Route: I.V. Start: 10:53 AM Stop: 10:53 AM Medication: Fentanyl Amount: 50 mcg Route: I.V. Start: 11:17 AM Stop: 11:17 AM Medication: Heparin Amount: 5000 units Route: I.V. Start: 11:18 AM Stop: 11:18 AM Medication: Fentanyl Amount: 25 mcg Route: I.V. Start: 11:21 AM Stop: 11:21 AM Medication: Versed Amount: 1 mg Route: I.V. Start: 11:31 AM Stop: 11:31 AM Medication: Nitrogylcerin Amount: 300 mcg Route: I.A. Start: 11:37 AM Stop: 11:37 AM Medication: Versed Amount: 1 mg Route: I.V. Start: 11:37 AM Stop: 11:37 AM Medication: Fentanyl Amount: 25 mcg Route: I.V. I, the attending physician, have reviewed and verified all procedure medications. Yes, all medications given per verbal order History/Risk Factors Hypertension: No Dyslipidemia: No Peripheral Arterial Disease (PAD): No Obesity: No Renal Disease: No Tobacco Use: Current/Recent(w/in 1 year) Prior Interventions PCI: No CABG: No Valve Surgery: No Report Signatures Finalized by José Luis Sheridan MD on 06/15/2025 10:47 AM
--- NOTE | 2025-06-06 10:51 | P.HP_ITS ---
Same Day Surgery H&P Indication for Procedure/HPI DATE OF PROCEDURE: June 06, 2025 CHIEF COMPLAINT/INDICATIONFOR SURGICAL PROCEDURE: Severe lifestyle limiting claudication of right lower extremity PREOP DIAGNOSIS: Severe lifestyle limiting claudication of right lower extremity PLANNED PROCEDURE: Operation Date: 06/06/25 10:00 Proposed Procedures p Peripheral Diagnostic - Periph Angio Unil(Not Applicable) - José Luis Sheridan M.D Possible percutaneous coronary intervention 69-year-old woman with past medical history of peripheral artery disease who has been having severe lifestyle limiting claudication lower extremity. Had intervention of left lower extremity recently. Plan for possible intervention of right lower extremity Medications/Allergies* Home Medications ?Medication ?Instructions ?Recorded ?Confirmed ?Type oxygen-air delivery systems ##1 07/30/20 06/05/25 Hist ory budesonide 0.5 mg/2 mL suspension 0.5 mg inhalation DA MOSHE shortness 02/10/25 06/05/25 History for nebulization (Pulmicort) of breath formoterol fumarate 20 mcg/2 mL 2 ml inhalation BID sh ortness of 02/10/25 06/05/25 History solution for nebulization breath (Perforomist) valsartan 40 mg tablet 40 mg PO DAILY 02/10/2505/14 History Allergies/Adverse Reactions Allergy/AdvReac Type Severity Reaction Status Date / Time Sulfa (Sulfonamide Allergy Unknown Vomiting Verified 06/06/25 09:46 Antibiotics) Current Medications: Generic Name Dose Route Start Last Admin Trade Name Freq PRN Reason Stop Dose Admin Sodium Chloride 1,000 mls @ 50 mls/hr 06/06/25 09:00 06/06/25 10:05 Sodium Chloride 0.9% IV 06/07/25 04:59 Not Given .Q20H ONE Pertinent History/Comorbid Conditions* Medical History (Updated 04/25/25 @ 00:00 by ROBERT Mak) Anxiety, generalized Type 2 diabetes mellitus with polyneuropathy Coronary artery disease Insomnia Vitamin B12 deficiency Type 2 diabetes mellitus Major depressive disorder, recurrent, in partial remission Chronic post-traumatic stress disorder Obstructive sleep apnea Nasal turbinate hypertrophy Deviated septum Chronic GERD Surgical History (Updated 12/30/19 @ 13:50 by Tay Archuleta MD) History of nasal surgery Family History (Updated 12/24/19 @ 09:49 by Kathryn Vonallmen, BROOM HANDLE DIPPER) Diabetes CAD (coronary artery disease) Depression Cancer Hypertension Stroke Social History Smoking and tobacco/nicotine status: current every day tobacco/nicotine user cigarettes Packs smoked per day: 1 Quit status (tobacco/nicotine): considering quitting Second hand smoke exposure: No Alcohol intake: never Substance/Drug Use: never Lives independently: Yes Household members: none Marital status: / Current occupational status: retired Current gender identity: Female Pertinent Exam Findings alert, oriented x 3, clear to auscultation bilaterally and regular rate & rhythm Conscious Sedation Assessment PATIENT ASSESSED PRIOR TO SEDATION, WITH NO CHANGE NOTED: Yes AIRWAY EVAL/ANESTHESIA PLAN: normal airway, ASA III, Local Anesthesia, Risks, benefits & alternatives of sedation and/or procedure discussed and Patient agrees to continue as planned ADDITIONAL INFORMATION: Moderate sedation Recommendations Risks and benefits of procedure reviewed and Patient/family agree to proceed Surgery/Procedure today (Peripheral angiogram with intervention) Coding Level of Care Code Acute Code for Mario Rodgers
--- NOTE | 2025-06-06 11:54 | PM.PROC ---
Procedure Note: Date of procedure: 06/06/25 Pre-procedure diagnosis: Severe lifestyle limiting claudication of right lower extremity Post-procedure diagnosis: other (Totally occluded ostial to distal SFA S/P successful revascularization with balloon angioplasty.) Procedure: Total occluded right SFA status post successful revascularization with balloon angioplasty Dual antiplatelet therapy with aspirin and Plavix. Performing Provider: José Luis Sheridan Complications: None Condition: stable Disposition: floor Coding Level of Care Code Acute Code for aMrio Rodgers
--- NOTE | 2025-06-06 12:16 | PC.NURSE ---
Patient transferred from petroleum laboratory technician to CSU at 1205. Patient has a left groin sheath connected to a pressure bag. cytogenetics laboratory manager gave order to run NS at 100ml/hr x 12 hours.
[2025-06-06 15:11] LABS: Partial Thromboplastin Time 58.5 SECONDS (23.9-36.7)
[2025-06-06 17:17] LABS: Partial Thromboplastin Time 27.7 SECONDS (23.9-36.7)
--- NOTE | 2025-06-06 19:03 | PC.NURSE ---
Patients left femoral sheath was pulled at 1749. Hemostatis was obtained immediately. Manual pressure is held x 20 minutes. No hematoma noted. Vitals remained stable throughout. A dressing of 4x4 and tegaderm is applied. Patient is reeducated to not move her left leg or sit up more than 30 degrees until midnight. Patient states understanding.
[2025-06-07 00:11] VITALS: BP 146/56; PULSE 85; RESP 19; TEMP 36.8; O2SAT 95
[2025-06-07 03:13] LABS: Hematocrit 37.2 % (36-47); Hemoglobin 11.40 g/dL (11.27-16.99); Mean Corpuscular HGB Conc 30.6 g/dL (30-55); Mean Corpuscular Hemoglobin 26.1 pg (27-33); Mean Corpuscular Volume 85.3 fl (85-98); Nucleated Red Blood Cells % 0 %; Platelet Count 238 10^3/cmm (157-399); Red Blood Count 4.36 10^6/uL (3.85-5.65); White Blood Count 10.43 10^3/uL (3.29-11.43)
[2025-06-07 03:35] LABS: Anion Gap 15.0 (5-19); Blood Urea Nitrogen 17 mg/dL (8-23); Calcium 8.9 mg/dL (8.5-10.5); Carbon Dioxide 26 mmol/L (22-29); Chloride 104 mmol/L (98-107); Creatinine Clr Calc Pharmacy 66.3026; Glucose 127 mg/dL (65-115); Osmolality Calculated 295 mOsm/kg (285-295); Potassium 4.0 mmol/L (3.5-5.1); Sodium 141 mmol/L (136-145)
[2025-06-07 04:10] VITALS: BP 108/47; PULSE 67; RESP 19; TEMP 36.8; O2SAT 95
[2025-06-07 07:45] VITALS: BP 122/56; PULSE 95; RESP 18; TEMP 36.6; O2SAT 95
--- NOTE | 2025-06-07 08:57 | P.DS_ITS ---
Discharge Providers Date of Discharge: June 07, 2025 Attending Provider at Discharge: José Luis Sheridan M.D Primary Care Provider: NIRALI Beck Reason for Visit Reason for Visit: I73.9 Brief History: 69-year-old woman with past medical hist ory of peripheral artery disease who has been having severe lifestyle limiting claudication of right lower extremity. Had intervention of left lower extremity recently. Plan for possible intervention of right lower extremity Hospital Course Hospital Course Peripheral angiogram showed totally occluded right SFA. Status post successful revascularization with balloon angioplasty including with drug coated balloon. Patient discharged on dual antiplatelet therapy. We are stopping cilostazol for now. Smoking cessation strongly recommended again. She says she is down to 1 cigarettes a day and will quit smoking. Outpatient cardiology follow-up Physical Exam Narrative: GENERAL: Patient is alert, awake and oriented x3. [] NECK: No jugular vein distension. [] HEENT: No cyanosis. No icterus. No pallor. [] HEART: Regular S1 and S2. No murmur, rub or gallop. [] LUNGS: Clear to auscultate bilaterally. [] CENTRAL NERVOUS SYSTEM: Grossly nonfocal. [] EXTREMITIES: Lower extremities with no edema bilaterally. 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 Routine Exams 06/06/25 10:00 Taken Laboratory Results WBC 10.43 10^3/uL (3.29-11.43) 06/07/25 02:54 RBC 4.36 10^6/uL (3.85-5.65) 06/07/25 02:54 Hgb 11.40 g/dL (11.27-16.99) 06/07/25 02:54 Hct 37.2 % (36-47) 06/07/25 02:54 MCV 85.3 fl (85-98) 06/07/25 02:54 MCH 26.1 pg (27-33) L 06/07/25 02:54 MCHC 30.6 g/dL (30-55) 06/07/25 02:54 RDW 13.8 % (12.1-15.1) 06/07/25 02:54 Plt Count 238 10^3/cmm (157-399) 06/07/25 02:54 MPV 9.9 fL (7.4-10.4) 06/07/25 02:54 Neut % (Auto) 68.9 % 06/07/25 02:54 Lymph % (Auto) 19.2 % 06/07/25 02:54 [place] % (Auto) 7.8 % 06/07/25 02:54 Eos % (Auto) 2.9 % 06/07/25 02:54 Baso % (Auto) 0.6 % 06/07/25 02:54 Neut # (Auto) 7.20 10^3/uL (1.8-7.7) 06/07/25 02:54 Lymph # (Auto) 2.0 10^3/uL (0.8-4.8) 06/07/25 02:54 [place] # (Auto) 0.8 10^3/uL (0.2-0.9) 06/07/25 02:54 Eos # (Auto) 0.3 10^3/uL (0.0-0.8) 06/07/25 02:54 Baso # (Auto) 0.1 10^3/uL (0.0-0.1) 06/07/25 02:54 Nucleated RBC % (auto) 0 % 06/07/25 02:54 Nucleated RBCs # 0.0 /100WBC 06/07/25 02:54 APTT 27.7 SECONDS (23.9-36.7) D 06/06/25 16:50 Sodium 141 mmol/L (136-145) 06/07/25 02:54 Potassium 4.0 mmol/L (3.5-5.1) 06/07/25 02:54 Chloride 104 mmol/L (98-107) 06/07/25 02:54 Carbon Dioxide 26 mmol/L (22-29) 06/07/25 02:54 Anion Gap 15.0 (5-19) 06/07/25 02:54 BUN 17 mg/dL (8-23) 06/07/25 02:54 Creatinine 0.8 mg/dL (0.5-0.9) 06/07/25 02:54 GFR Calculation Not Reportable 06/07/25 02:54 Glucose 127 mg/dL (65-115) H 06/07/25 02:54 Calculated Osmolality 295 mOsm/kg (285-295) 06/07/25 02:54 Calcium 8.9 mg/dL (8.5-10.5) 06/07/25 02:54 Vitals Last Vital Signs Temp 97.8 F 06/07/25 07:45 Pulse 95 06/07/25 07:45 Resp 18 06/07/25 07:45 BP 122/56 06/07/25 07:45 Pulse Ox 95 06/07/25 07:45 O2 Del Method Nasal Cannula 06/07/25 07:45 O2 Flow Rate 1 06/07/25 07:45 Discharge Plan Discharge Patient Disposition: Home Prescriptions: Continued (DME) oxygen-air delivery systems Device See Rx Instructions .ROUTE .MEDSUPPLY Qty: 1 Rx Instructions: As directed. 4L at h.s aspirin [Aspirin Childrens] 81 mg tablet,chewable 81 mg PO DAILY Qty: 90 0RF (DME) pen needle, diabetic [Pen Needle] 31 gauge x 5/16 needle See Rx Instructions .MEDSUPPLY Qty: 100 12RF Rx Instructions: Use as directed for insulin administration (DME) Dexcom G6 Silo Painter Misc See Rx Instructions .MEDSUPPLY Qty: 1 0RF Rx Instructions: Use as directed for checking blood sugar (DME) flash glucose sensor Kit See Rx Instructions .MEDSUPPLY Qty: 2 12RF Rx Instructions: Change every 14 days; Use as directed to check blood sugar (DME) Portable Oxygen 3L See Rx Instructions .Route .MEDSUPPLY Qty: 1 0RF Rx Instructions: As directed amlodipine 10 mg tablet 10 mg PO DAILY Qty: 90 1RF Rx Instructions: TAKE 1 TABLET BY MOUTH DAILY atorvastatin 20 mg tablet 20 mg PO DAILY Qty: 90 1RF Rx Instructions: TAKE 1 TABLET BY MOUTH DAILY insulin degludec [Tresiba FlexTouch U-100] 100 unit/mL (3 mL) insulin pen 20 unit SUBCUT DAILY 90 Days Qty: 15 3RF Rx Instructions: 20 units metoprolol tartrate 100 mg tablet 100 mg PO BID 90 Days Qty: 180 3RF Rx Instructions: TAKE 1 TABLET BY MOUTH TWICE DAILY isosorbide mononitrate 30 mg tablet extended release 24 hr 30 mg PO BID 90 Days Qty: 180 3RF Januvia 100 mg tablet 100 mg PO DAILY Qty: 90 1RF Rx Instructions: TAKE 1 TABLET BY MOUTH DAILY (DME) FreeStyle Sarah 2 Elaine Misc See Rx Instructions .MEDSUPPLY Qty: 1 0RF Rx Instructions: Use as directed to check blood sugar (DME) FreeStyle Sarah 2 Sensor Kit See Rx Instructions .MEDSUPPLY Qty: 2 11RF Rx Instructions: Change every 14 days; Use as directed to check blood sugar famotidine 40 mg tablet 20 mg PO DAILY Qty: 90 0RF Rx Instructions: TAKE 1/2 TABLET BY MOUTH DAILY lorazepam [Ativan] 0.5 mg tablet 0.25 mg PO DAILY PRN (Reason: anxiety) Qty: 15 1RF nitroglycerin 0.4 mg tablet, sublingual 0.4 mg sublingual Q5M PRN (Reason: chest pain) Qty: 30 2RF Rx Instructions: do not exceed 3 doses per episode (DME) lancets [OneTouch Delica Plus Lancet] 33 gauge misc See Rx Instructions .ROUTE .COMPLEX Qty: 100 0RF Dose Instruction: USE TO TEST BLOOD SUGAR DAILY DIRECTED Rx Instructions: USE TO TEST BLOOD SUGAR DAILY DIRECTED clopidogrel 75 mg tablet 75 mg PO DAILY Qty: 90 3RF pantoprazole 40 mg tablet,delayed release (DR/EC) See Rx Instructions .ROUTE .COMPLEX Qty: 30 5RF Dose Instruction: Take 1 tablet by mouth once daily Rx Instructions: Take 1 tablet by mouth once daily bupropion HCl 75 mg tablet 75 mg PO .QOTHERDAY Qty: 45 0RF Rx Instructions: TAKE 1 TABLET BY MOUTH EVERY OTHER DAY dulaglutide 3 mg/0.5 mL pen injector 3 mg SUBCUT .weekly 90 Days Qty: 2 4RF (DME) OneTouch Ultra Test Strip See Rx Instructions .ROUTE .COMPLEX Qty: 100 0RF Dose Instruction: USE 1 STRIP TO CHECK GLUCOSE ONCE DAILY Rx Instructions: USE 1 STRIP TO CHECK GLUCOSE ONCE DAILY budesonide [Pulmicort] 0.5 mg/2 mL suspension for nebulization 0.5 mg inhalation DAILY valsartan 40 mg tablet 40 mg PO DAILY Rx Instructions: TAKE 1 TABLET BY MOUTH TWICE DAILY formoterol fumarate [Perforomist] 20 mcg/2 mL solution for nebulization 2 ml inhalation BID Discontinued cilostazol 50 mg tablet 50 mg PO BID Qty: 180 3RF Discharge Order = DC NOW: Discharge Order (Routine); Ordered 06/07/25 Ordered By: José Luis Sheridan Referrals: Brown,Lorrie, [employer] [Nurse Practitioner, Cardiology] - 7-10 days Referral Note: We have notified your physician's clinic of the need for a follow-up appointment to be scheduled. If you have not heard from them within the next 2 business days, please call them directly. Diet: Diabetic Activity: Increase activity as tolerated Patient Instructions: Clopidogrel (By mouth), How to Stop Smoking (DC), Peripheral Vascular Stent Placement (DC), Peripheral Vascular Angioplasty (DC), Mediterranean Diet (DC) Print Language: Setswana Discharge Date/Time: 06/07/25 09:38 Discharge Attestations Time Spent in Discharge Care*: less than 30 min Quality Metrics Clinical Quality Measures [ No reported AMI, CVA or VTE this stay] Coding Level of Care Code Acute Code for Chg Fw[place]ola
== END 2025-06-07 09:38 | disposition home or self-care (01) ==
LOC: CCL 08:59 → CSU 12:11
PROVIDERS: Nurse Practitioner Family; PCP Registered Nurse; Visit Provider Internal Medicine
DX: I70.211 Atherosclerosis of native arteries of extremities with intermittent claudication, right leg (principal); I70.92 Chronic total occlusion of artery of the extremities; Z99.81 Dependence on supplemental oxygen; E11.9 Type 2 diabetes mellitus without complications; I25.10 Atherosclerotic heart disease of native coronary artery without angina pectoris; F33.8 Other recurrent depressive disorders; F43.12 Post-traumatic stress disorder, chronic; G47.33 Obstructive sleep apnea (adult) (pediatric); K21.9 Gastro-esophageal reflux disease without esophagitis; F17.210 Nicotine dependence, cigarettes, uncomplicated; Z79.82 Long term (current) use of aspirin; Z79.4 Long term (current) use of insulin
CPT/HCPCS: 36415; 37224; 75625; 75710; 80048; 85025; 85347; 85730; 99152; 99153; C1725; C1769; C1887; C1894; C2623; J1644; J2250; J3010; J3490; J7030; J9999; Q0163; Q9967

== ENCOUNTER 2025-06-16 16:15 | Outpatient (CLI) | payer MEDICARE, MEDICAID, SELFPAY ==
[2025-06-16 17:52] LABS: Hematocrit 36.4 % (36-47); Hemoglobin 11.40 g/dL (11.27-16.99); Mean Corpuscular HGB Conc 31.3 g/dL (30-55); Mean Corpuscular Hemoglobin 26.5 pg (27-33); Mean Corpuscular Volume 84.5 fl (85-98); Nucleated Red Blood Cells % 0 %; Platelet Count 262 10^3/cmm (157-399); Red Blood Count 4.31 10^6/uL (3.85-5.65); White Blood Count 9.97 10^3/uL (3.29-11.43)
[2025-06-16 18:11] LABS: Anion Gap 15.2 (5-19); Blood Urea Nitrogen 17 mg/dL (8-23); Calcium 8.7 mg/dL (8.5-10.5); Carbon Dioxide 28 mmol/L (22-29); Chloride 100 mmol/L (98-107); Glucose 176 mg/dL (65-115); Osmolality Calculated 294 mOsm/kg (285-295); Potassium 4.2 mmol/L (3.5-5.1); Sodium 139 mmol/L (136-145)
== END 2025-06-16 16:16 | disposition home or self-care (01) ==
LOC: LAB 16:17
PROVIDERS: PCP Registered Nurse; Visit Provider Nurse Practitioner Family
DX: I73.9 Peripheral vascular disease, unspecified (principal); Z98.890 Other specified postprocedural states; I10 Essential (primary) hypertension; E11.9 Type 2 diabetes mellitus without complications; Z79.4 Long term (current) use of insulin; G47.33 Obstructive sleep apnea (adult) (pediatric); E78.5 Hyperlipidemia, unspecified; I65.29 Occlusion and stenosis of unspecified carotid artery; Z79.02 Long term (current) use of antithrombotics/antiplatelets; Z79.82 Long term (current) use of aspirin; F17.210 Nicotine dependence, cigarettes, uncomplicated
CPT/HCPCS: 36415; 80048; 85025; 99213

== ENCOUNTER → 2025-08-27 10:19 | Outpatient (BNVA) | payer MEDICARE, MEDICAID, SELFPAY | PROVIDERS: PCP Registered Nurse; Visit Provider Registered Nurse | DX: R39.11 Hesitancy of micturition (principal); L02.91 Cutaneous abscess, unspecified | CPT/HCPCS: 81000; 87070; 87086 ==

== ENCOUNTER → 2025-09-18 08:16 | Outpatient (BNVA) | payer MEDICARE, MEDICAID, SELFPAY | PROVIDERS: PCP Registered Nurse; Visit Provider Registered Nurse | DX: E11.9 Type 2 diabetes mellitus without complications (principal); Z79.4 Long term (current) use of insulin | CPT/HCPCS: 80053; 80061; 83036; 85025 ==

== ENCOUNTER → 2025-09-22 12:13 | Outpatient (BNVA) | payer MEDICARE, MEDICAID, SELFPAY | PROVIDERS: PCP Registered Nurse; Visit Provider Internal Medicine | DX: E11.51 Type 2 diabetes mellitus with diabetic peripheral angiopathy without gangrene (principal); I10 Essential (primary) hypertension; Z79.4 Long term (current) use of insulin; F17.210 Nicotine dependence, cigarettes, uncomplicated | CPT/HCPCS: 99214 ==